=== PATIENT | female | born 1980 | race Caucasian/White ===

== ENCOUNTER 2019-02-18 03:21 | Emergency (ER) | payer OTHER ==
[~2019-02-18] VITALS: Ht 157.5 cm; Wt 52.6 kg
[2019-02-18 03:26] VITALS: Ht 157.5 cm; Wt 52.6 kg
--- NOTE | 2019-02-18 03:39 | ERD ---
ER Documentation Chief Complaint Chief Complaint DYSURIA, URINARY RETENTION HPI The patient is a 38-year-old female, presenting to the ER because of inability to void since 2 PM yesterday. 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 She was unable to urinate yesterday, went to [facility] ER, had a Scott catheter inserted.drain about 500 cc of urine. She was advised to have a Scott catheter however she demanded to have it removed at [facility]. She now came back to the ER because she was unable to urinate. She denies fever, chills, neck pain, chest pain, dyspnea, abdominal pain, vomiting. She has an appointment with the urologist 9 AM today. She smokes socially, denies drinking Medical history: Epilepsy Past surgical history: Hysterectomy ROS All systems reviewed and are negative except as per history of present illness. Medications Home Meds Active Scripts Baclofen* (Baclofen*) 10 Mg Tablet, 10 MG PO TID, #10 TAB Prov:CARLOS JONES MD 02/18/19 Levofloxacin* (Levaquin*) 750 Mg Tablet, 750 MG PO DAILY for 5 Days, TAB Prov:CARLOS JONES MD 02/18/19 Allergies Allergies: Uncoded Allergies: NSAID (Allergy, Unknown, 02/18/19) Physical Exam Vitals Vital Signs Date Temp Pulse Resp B/P (MAP) Pulse Ox O2 O2 Flow FiO2 Time Delivery Rate 02/18/19 98.8 108 19 120/78 96 03:26 (92) 02/18/19 98.8 108 19 120/78 96 03:26 (92) Physical Exam Const: No acute distress. Head: Atraumatic. Eyes: Normal Conjunctiva. ENT: Normal External Ears, Nose and Mouth. Neck: Full range of motion. No meningismus. Resp: Clear to auscultation bilaterally. Cardio: Regular rate and rhythm. Abd: Soft, distended urinary bladder, normal bowel sounds, non tender. Skin: No petechiae or rashes. Back: No midline or flank tenderness. Ext: No cyanosis, or edema. Neur: Awake and alert. No focal deficit Psych: Anxious Results 24 hrs Laboratory Tests Test 02/18/19 04:23 02/18/19 04:29 Bedside Urine pH (LAB) 5.5 Bedside Urine Protein (LAB) 2+ Bedside Urine Glucose (UA) 0.1% Bedside Urine Ketones (LAB) Trace Bedside Urine Blood Negative Bedside Urine Nitrite (LAB) Positive Bedside Urine Leukocyte Esterase (L 3+ POC Beta HCG, Qualitative NEGATIVE Current Medications Medications Dose Sig/Olena Start Time Status Last (Trade) Ordered Route PRN Stop Time Admin Dose Reason Admin Ketorolac 60 mg ONCE STAT 02/18/19 DC Tromethamine IM 04:17 (Toradol) 02/18/19 04:18 750 mg ONCE ONCE 02/18/19 DC 02/18/19 Levofloxacin PO 05:00 05:12 (Levaquin) 02/18/19 05:01 1 tab ONCE ONCE 02/18/19 DC 02/18/19 Acetaminophen PO 05:00 05:05 / 02/18/19 05:01 Hydrocodone Bitart ([place] (10/325)) Baclofen 10 mg ONCE ONCE 02/18/19 DC 02/18/19 (Lioresal) PO 05:00 05:12 02/18/19 05:01 Procedures/MDM MEDICAL MAKING DECISION: The patient is a 38-year-old female, presenting with acute urinary retention, acute cystitis. Urine culture is submitted, she was treated with [place] 10 mg p.o. for discomfort, Levaquin 750 mg p.o. for acute cystitis and baclofen 10 mg p.o. for her urinary bladder spasm. Scott catheter was inserted and drained out about 750 mL of urine, The RN has instructed her how to care for the leg bag The differential diagnoses considered include but are not limited to UTI, pyelonephritis, urethral stricture, renal colic, neurogenic bladder Departure Diagnosis: Primary Impression: Urinary retention Additional Impression: UTI (urinary tract infection) Condition: Good Comments She was discharged with Levaquin and baclofen I discussed the findings with the patient. I advised the patient to follow-up with her urologist at 9 AM today and return if any concern. Disclaimer: Inadvertent spelling and grammatical errors are likely due to EHR/dictation software use and do not reflect on the overall quality of patient care. Also, please note that the electronic time recorded on this note does not necessarily reflect the actual time of the patient encounter. CARLOS JONES MD Feb 18, 2019 03:39
[2019-02-18] MEDS ORDERED: KETOROLAC 60 MG INJ IM STA (04:17)
[2019-02-18] MEDS ORDERED: HYDROCODONE/APAP (10/325) TAB PO ONE (05:00)
[2019-02-18] MEDS ORDERED: LEVOFLOXACIN 750 MG TABLET PO ONE (05:00)
[2019-02-18] MEDS ORDERED: BACLOFEN 10 MG TAB PO ONE (05:00)
[2019-02-18] MEDS ORDERED: BACL10TA PO (05:01)
[2019-02-18] MEDS ORDERED: LEVO750T25 PO (05:01)
[2019-02-18 05:30] VITALS: BP 100/58; PULSE 80; RESP 23
[2019-02-18] MEDS ORDERED: HYDR-4011 PO (05:45)
== END 2019-02-18 05:35 | disposition home or self-care (01) ==
LOC: E/R 03:21
DX: N39.0 Urinary tract infection, site not specified (principal)
CPT/HCPCS: 81003; 81025; J1885; Z7502; Z7610; 99283

== ENCOUNTER 2019-02-19 20:29 | Emergency (ER) | payer OTHER ==
[~2019-02-19] VITALS: Ht 157.5 cm; Wt 52.4 kg
[~2019-02-19 20:29] MED LIST: BACL10TA PO; HYDR-4011 PO; LEVO750T25 PO
[2019-02-19 20:34] VITALS: Ht 157.5 cm; Wt 52.4 kg
[2019-02-19] MEDS ORDERED: morphine 4 MG/ML VIAL IM STA (21:29)
[2019-02-19] MEDS ORDERED: ONDANSETRON (ODT) 4 MG TAB ODT STA (21:29)
[2019-02-19] MEDS ORDERED: LIDOCAINE 2% 20 ML UROJET SYRINGE MM ONE (21:30)
--- NOTE | 2019-02-19 22:24 | ERD ---
ER Documentation Chief Complaint Chief Complaint STATES UNABLE TO URINATE SINCE 10 AM HPI This is a 38-year-old female who presents again for urinary retention. The patient was seen here recently had a Scott catheter placed and self discontinue the Scott catheter at home. She has been diagnosed with a urethral cyst versus diverticula. The patient has self discontinued multiple Scott catheters with recurrent urinary retention. She describes taking out the Scott and now unable to urinate for several hours. She describes suprapubic fullness and pain. No fevers or chills or flank pain. Symptoms are moderate. ROS All systems reviewed and are negative except as per history of present illness. Medications Home Meds Active Scripts Hydrocodone/Acetaminophen ([place] 5-325 Tablet) 1 Each Tablet, 1 TAB PO Q6H PRN for PAIN, #7 TAB Prov:CARLOS JONES MD 02/18/19 Baclofen* (Baclofen*) 10 Mg Tablet, 10 MG PO TID, #10 TAB Prov:CARLOS JONES MD 02/18/19 Levofloxacin* (Levaquin*) 750 Mg Tablet, 750 MG PO DAILY for 5 Days, TAB Prov:CARLOS JONES MD 02/18/19 Allergies Allergies: Coded Allergies: NSAIDS (Non-Steroidal Anti-Inflamma (Verified Allergy, Unknown, 02/18/19) PMhx/Soc History of Surgery: Yes (hystrectomy) Anesthesia Reaction: No Hx Neurological Disorder: Yes (seizures) Hx Respiratory Disorders: No Hx Cardiac Disorders: No Hx Psychiatric Problems: No Hx Miscellaneous Medical Probl: Yes (cancer) Hx Alcohol Use: Yes Hx Substance Use: No Hx Tobacco Use: No FmHx Family History: No diabetes Physical Exam Vitals Vital Signs Date Temp Pulse Resp B/P (MAP) Pulse Ox O2 O2 Flow FiO2 Time Delivery Rate 02/19/19 99.6 93 20 130/80 98 20:34 (97) Physical Exam General: Well developed, well nourished, no acute distress Head: Normocephalic, atraumatic. Eyes: EOM intact ENT: Moist mucous membranes Neck: Full ROM Respiratory: No respiratory distress Cardiovascular: Well perfused distally Abdominal: Nondistended, suprapubic fullness : Deferred MSK: No edema, no unilateral swelling, 5/5 strength Neurologic: Alert and oriented, moving all extremities, normal speech, steady gait Skin: No rash Psych: Normal mood Results 24 hrs Current Medications Medications Dose Sig/Olena Start Time Status Last (Trade) Ordered Route PRN Stop Time Admin Dose Reason Admin Morphine 4 mg ONCE STAT 02/19/19 DC 02/19/19 Sulfate IM 21:29 21:59 (morphine) 02/19/19 21:32 Lidocaine 20 ml ONCE ONCE 02/19/19 DC 02/19/19 (Lidocaine MM 21:30 22:06 2% Urojet) 02/19/19 21:32 Ondansetron 4 mg ONCE STAT 02/19/19 DC 02/19/19 HCl (Zofran ODT 21:29 21:59 Odt) 02/19/19 21:32 Procedures/MDM MEDICAL DECISION MAKING: Scott catheter placed here in the emergency room. The patient was advised that she needs to keep the Scott catheter in until she can see her urologist. She has a mechanical obstruction that is unlikely to resolve with this time. Patient is currently taking an antibiotic. A urine culture was canceled during recent hospital station so therefore repeat urine culture will be sent here today. The patient otherwise has no signs or symptoms concerning for obstructive uropathy. Letter testing is not indicated. CONSULTATION: [None] DISPOSITION PLAN: The patient does not have an identifiable emergent medical condition that warrants inpatient hospitalization at this time. The patient is deemed safe for discharge with outpatient follow-up. We discussed follow up with the patient's primary care doctor within 24 to 48 hours as needed. We also discussed return to the emergency room for worsening symptoms or worsening condition. Outpatient referral: Urology Discharge Medications: [None required] Departure Diagnosis: Primary Impression: Acute urinary retention Condition: Stable Patient Instructions: Urinary Retention, Female Referrals: CODY CHRISTIANSON MD [facility] YOU HAVE RECEIVED A MEDICAL SCREENING EXAM AND THE RESULTS INDICATE THAT YOU DO NOT HAVE A CONDITION THAT REQUIRES URGENT TREATMENT IN THE EMERGENCY DEPARTMENT. FURTHER EVALUATION AND TREATMENT OF YOUR CONDITION CAN WAIT UNTIL YOU ARE SEEN IN YOUR DOCTORS OFFICE WITHIN THE NEXT 1-2 DAYS. IT IS YOUR RESPONSIBILITY TO MAKE AN APPOINTMENT FOR FOLOW-UP CARE. IF YOU HAVE A PRIMARY DOCTOR --you should call your primary doctor and schedule an appointment IF YOU DO NOT HAVE A PRIMARY DOCTOR YOU CAN CALL OUR PHYSICIAN REFERRAL HOTLINE AT IF YOU CAN NOT AFFORD TO SEE A PHYSICIAN YOU CAN CHOSE FROM THE FOLLOWING [facility] [address] [place] [facility] [address] [facility] [place] [address] [facility] [address] [facility] [address] [facility]. [facility] [address] [facility]. [facility] YOU HAVE RECEIVED A MEDICAL SCREENING EXAM AND THE RESULTS INDICATE THAT YOU DO NOT HAVE A CONDITION THAT REQUIRES URGENT TREATMENT IN THE EMERGENCY DEPARTMENT. FURTHER EVALUATION AND TREATMENT OF YOUR CONDITION CAN WAIT UNTIL YOU ARE SEEN IN YOUR DOCTORS OFFICE WITHIN THE NEXT 1-2 DAYS. IT IS YOUR RESPONSIBILITY TO MAKE AN APPOINTMENT FOR FOLOW-UP CARE. IF YOU HAVE A PRIMARY DOCTOR --you should call your primary doctor and schedule and appointment IF YOU DO NOT HAVE A PRIMARY DOCTOR YOU CAN CALL OUR PHYSICIAN REFERRAL HOTLINE AT . IF YOU CAN NOT AFFORD TO SEE A PHYSICIAN YOU CAN CHOSE FROM THE FOLLOWING [facility] INSTITUTIONS: [facility] [address] [place] [address] [facility] [address] [place] [address] [facility] [address] [place] [address] Additional Instructions: Call your primary care doctor TOMORROW for an appointment during the next 1 WEEK.Tell the secretary specialist that you were referred from this facility.See the doctor sooner or return here if your condition worsens before your appointment time. ED BANDA MD Feb 19, 2019 22:24
[2019-02-19 23:00] VITALS: BP 135/82; PULSE 77; RESP 20
[2019-02-21] MEDS ORDERED: ONDA4TAB13 PO (17:47)
[2019-02-21] MEDS ORDERED: PHEN-717 PO (17:48)
[2019-02-21] MEDS ORDERED: TAMS-14 PO (17:48)
[2019-02-21] MEDS ORDERED: CARB100T2 PO (17:49)
== END 2019-02-20 00:56 | disposition home or self-care (01) ==
LOC: E/R 20:29
DX: R33.9 Retention of urine, unspecified (principal)
CPT/HCPCS: 51702; 87086; 96372; J2270; Z7502; Z7610

== ENCOUNTER 2019-02-21 15:01 | Inpatient (IN) | payer OTHER ==
[~2019-02-21] VITALS: Ht 157.5 cm; Wt 52.3 kg
[2019-02-21] MEDS ORDERED: SOD CHLORIDE 0.9% 1,000 ML IV STA (16:30)
[2019-02-21] MEDS ORDERED: ACETAMINOPHEN 325 MG TAB PO PRN (17:00)
[2019-02-21] MEDS ORDERED: ONDANSETRON 4 MG INJ IV PRN (17:00)
[2019-02-21] MEDS ORDERED: HYDROCODONE/APAP (5/325) TAB PO PRN (17:00)
[2019-02-21] MEDS ORDERED: NACL 0.9% 3 ML SYG IV SCH (17:00)
[2019-02-21] MEDS ORDERED: DIPHENHYDRAMINE 50 MG INJ IV PRN (17:30)
[2019-02-21] MEDS: morphine 2 MG INJ IV PRN ×2 (17:32→21:25)
--- NOTE | 2019-02-21 17:40 | HP ---
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 Patient has been dealing with intermittent dysuria as well as worsening urinary retention for many months and now there is a questionable urinary diverticulum when patient was at the urologist office where he performed cystoscopy today. Currently patient complains of urinary and urethral site pain and has a Scott catheter otherwise is at baseline. Patient denies chest pain, shortness of breath, headache. Patient does state she has some nausea and some dizziness. Objective Physical exam General: Patient is laying in bed and answers questions appropriately Mentation: Patient is alert and oriented 4, Head: Normocephalic atraumatic Eyes: EOMI, pupils reactive to light Neck: Supple, nontender, midline Respiratory: Clear to auscultation bilaterally Cardiovascular: regular rate, no obvious murmurs Gastrointestinal: Suprapubic area tender to palpation, bowel sounds heard. Neurological: Moves all extremities spontaneously Skin: No new skin lesions Assessment and plan All current labs are not in the computer at this time, following assessment plan will change based on results Acute on chronic dysuria with urinary retention -Patient's urologist on board, Dr. Ramirez -Per urology recommendations, will order MRI with and without contrast, patient stated she had a very mild reaction with a CT with iodine contrast in the past that cause very mild redness however she has not had any reaction to MRI with gadolinium, however patient would feel more comfortable with a dose of Benadryl before the MRI. -Nursing staff given strict instructions on how to remove in 1 to remove Scott c atheter prior to MRI and went to give Benadryl. Urinary tract infection -Likely secondary to patient's multiple urinary issues -Patient was on oral Levaquin, will change to IV cefepime for now -Urology recommendations appreciated -mild IV hydration Anemia -Very mild, monitor closely, follow-up outpatient Disposition -Pending MRI, possible intervention per urology if MRI results are revealing for pathology Result Diagram: 02/21/19 1654 02/21/19 1654 Results 24hrs Laboratory Tests Test 02/21/19 16:54 White Blood Count 7.4 Red Blood Count 3.72 L Hemoglobin 11.9 L Hematocrit 35.3 L Mean Corpuscular Volume 94.9 Mean Corpuscular Hemoglobin 32.0 Mean Corpuscular Hemoglobin Concent 33.7 Red Cell Distribution Width 11.7 Platelet Count 170 Mean Platelet Volume 10.5 H Immature Granulocytes % 0.400 Neutrophils % 75.2 Lymphocytes % 17.1 Monocytes % 6.5 Eosinophils % 0.4 Basophils % 0.4 Nucleated Red Blood Cells % 0.0 Immature Granulocytes # 0.030 Neutrophils # 5.6 Lymphocytes # 1.3 Monocytes # 0.5 Eosinophils # 0.0 Basophils # 0.0 Nucleated Red Blood Cells # 0.0 Prothrombin Time 12.7 Prothrombin Time Ratio 1.0 INR International Normalized Ratio 0.94 Activated Partial Thromboplast Time 31.0 Urine Color RODRIGO Urine Clarity CLOUDY A Urine pH 5.0 Urine Specific [place] 1.025 Urine Ketones NEGATIVE Urine Nitrite POSITIVE A Urine Bilirubin NEGATIVE Urine Urobilinogen 2+ H Urine Leukocyte Esterase NEGATIVE Urine Microscopic RBC 12 H Urine Microscopic WBC 7 H Urine Bacteria FEW A Urine Mucus FEW A Urine Hemoglobin NEGATIVE Urine Glucose NEGATIVE Urine Total Protein NEGATIVE Sodium Level 139 Potassium Level 3.5 Chloride Level 104 Carbon Dioxide Level 25 Anion Gap 10 Blood Urea Nitrogen Pending Creatinine Pending Est Glomerular Filtrat Rate mL/min Pending Glucose Level Pending Calcium Level Pending HPI/ROS Admit Date/Time Admit Date/Time PMH/Family/Social Past Medical History Medications Current Medications IV Flush (NS 3 ml) 3 ml PER PROTOCOL IV ; Start 02/21/19 at 17:00 Ondansetron HCl (Zofran Inj) 4 mg Q6H PRN IV NAUSEA/VOMITING; Start 02/21/19 at 17:00 Acetaminophen (Tylenol Tab) 650 mg Q6H PRN PO .PAIN 1-3 OR TEMP; Start 02/21/19 at 17:00 Acetaminophen/ Hydrocodone Bitart ([place] (5/325)) 1 tab Q6H PRN PO .PAIN 4-6; Start 02/21/19 at 17:00 Morphine Sulfate (morphine) 2 mg Q4H PRN IV .PAIN 7-10 Last administered on 02/21/19at 17:32; Admin Dose 2 MG; Start 02/21/19 at 17:00 Heparin Sodium (Porcine) (Heparin (5000 Units/1ml)) 5,000 unit Q8 SC ; Start 02/21/19 at 22:00 Diphenhydramine HCl (Benadryl) 25 mg ONCE PRN IV MRI; Start 02/21/19 at 17:30; Stop 02/22/19 at 23:00 Baclofen (Lioresal) 10 mg TID PO ; Start 02/21/19 at 21:00 Phenazopyridine HCl (Pyridium) 100 mg TID PO ; Start 02/21/19 at 21:00 Carbamazepine (Tegretol) 200 mg TID PO ; Start 02/21/19 at 21:00 Cefepime HCl 50 ml @ 100 mls/hr Q12 IVPB ; Start 02/21/19 at 21:00 Tamsulosin HCl (Flomax) 0.4 mg HS PO ; Start 02/21/19 at 21:00 Coded Allergies: NSAIDS (Non-Steroidal Anti-Inflamma (Verified Allergy, Unknown, 02/21/19) Social History Smoking Status: Never smoker Exam/Review of Systems Vital Signs Vitals Vital Signs Date Temp Pulse Resp B/P (MAP) Pulse Ox O2 O2 Flow FiO2 Time Delivery Rate 02/21/19 99.2 117 20 104/63 97 15:13 (77) CALEB ADAMS Feb 21, 2019 17:40
[2019-02-21] MEDS ORDERED: ONDA4TAB13 PO (17:47)
[2019-02-21] MEDS ORDERED: TAMS-14 PO (17:48)
[2019-02-21] MEDS ORDERED: PHEN-717 PO (17:48)
[2019-02-21] MEDS ORDERED: CARB100T2 PO (17:49)
[2019-02-21] MEDS ORDERED: METOCLOPRAMIDE 10 MG INJ IV PRN (18:00)
[2019-02-21] MEDS: PROCHLORPERAZINE 10 MG INJ IV PRN (18:36)
--- NOTE | 2019-02-21 19:12 | ERD ---
ER Documentation Chief Complaint Chief Complaint sent by urologist for admission, urethral obstruction & pelvic pain HPI 38-year-old woman referred here by her urologist Dr. Ramirez for admission, work- up, and MR imaging. Patient was at his office today and a new Scott catheter was placed due to chronic recurrent dysuria that patient states has been an ongoing issue x1 year. She states she has urethral cysts, cystoscopy was also done this morning's office and was abnormal. Patient has had hematuria today and feels dehydrated, she has had no fevers or chills, no chest pain or shortness of breath. She has been using levofloxacin daily x4 days. ROS All systems reviewed and are negative except as per history of present illness. Medications Home Meds Active Scripts Hydrocodone/Acetaminophen ([place] 5-325 Tablet) 1 Each Tablet, 1 TAB PO Q6H PRN for PAIN, #7 TAB Prov:CARLOS JONES MD 02/18/19 Baclofen* (Baclofen*) 10 Mg Tablet, 10 MG PO TID, #10 TAB Prov:CARLOS JONES MD 02/18/19 Levofloxacin* (Levaquin*) 750 Mg Tablet, 750 MG PO DAILY for 5 Days, TAB Prov:CARLOS JONES MD 02/18/19 Reported Medications Carbamazepine* (Carbamazepine*) 100 Mg Tab.chew, 100 MG PO TID, #90 TAB.CHEW 02/21/19 Phenazopyridine Hcl* (Phenazopyridine Hcl*) 200 Mg Tablet, 200 MG PO DAILY, TAB 02/21/19 Tamsulosin Hcl* (Flomax*) 0.4 Mg Cap.er.24h, 0.8 MG PO HS, CAP 02/21/19 Ondansetron Hcl* (Zofran*) 4 Mg Tab, 4 MG PO NEEDED PRN for NAUSEA AND OR VOMITING, TAB 02/21/19 Allergies Allergies: Coded Allergies: NSAIDS (Non-Steroidal Anti-Inflamma (Verified Allergy, Unknown, 02/21/19) PMhx/Soc Seizures History of Surgery: Yes (hystrectomy) Anesthesia Reaction: No Hx Neurological Disorder: Yes (seizures) Hx Respiratory Disorders: No Hx Cardiac Disorders: No Hx Psychiatric Problems: No Hx Miscellaneous Medical Probl: Yes (cancer) Hx Alcohol Use: Yes Hx Substance Use: No Hx Tobacco Use: No Smoking Status: Never smoker FmHx Family History: No diabetes Physical Exam Vitals Vital Signs Date Temp Pulse Resp B/P (MAP) Pulse Ox O2 O2 Flow FiO2 Time Delivery Rate 02/21/19 94 16 96/67 (77) 97 Room Air 18:33 02/21/19 99.2 117 20 104/63 97 15:13 (77) Physical Exam Const: No acute distress, afebrile, appears dehydrated Resp: Clear to auscultation bilaterally Cardio: Regular rate and rhythm, no murmurs Abd: Soft, non tender, non distended. Normal bowel sounds Skin: No petechiae or rashes, no hematomas or ecchymosis Back: No midline or flank tenderness Neur: Awake and alert x3, no focal deficits or facial asymmetry, pupils equal round reactive to light Psych: Normal Mood and Affect Result Diagram: 02/21/19 1654 02/21/19 1654 Results 24 hrs Laboratory Tests Test 02/21/19 16:54 White Blood Count 7.4 10^3/ul Red Blood Count 3.72 10^6/ul Hemoglobin 11.9 g/dl Hematocrit 35.3 % Mean Corpuscular Volume 94.9 fl Mean Corpuscular Hemoglobin 32.0 pg Mean Corpuscular Hemoglobin Concent 33.7 g/dl Red Cell Distribution Width 11.7 % Platelet Count 170 10^3/UL Mean Platelet Volume 10.5 fl Immature Granulocytes % 0.400 % Neutrophils % 75.2 % Lymphocytes % 17.1 % Monocytes % 6.5 % Eosinophils % 0.4 % Basophils % 0.4 % Nucleated Red Blood Cells % 0.0 /100WBC Immature Granulocytes # 0.030 10^3/ul Neutrophils # 5.6 10^3/ul Lymphocytes # 1.3 10^3/ul Monocytes # 0.5 10^3/ul Eosinophils # 0.0 10^3/ul Basophils # 0.0 10^3/ul Nucleated Red Blood Cells # 0.0 10^3/ul Prothrombin Time 12.7 Sec Prothrombin Time Ratio 1.0 INR International Normalized Ratio 0.94 Activated Partial Thromboplast Time 31.0 Sec Urine Color RODRIGO Urine Clarity CLOUDY Urine pH 5.0 Urine Specific [place] 1.025 Urine Ketones NEGATIVE mg/dL Urine Nitrite POSITIVE mg/dL Urine Bilirubin NEGATIVE mg/dL Urine Urobilinogen 2+ mg/dL Urine Leukocyte Esterase NEGATIVE [place]/ul Urine Microscopic RBC 12 /HPF Urine Microscopic WBC 7 /HPF Urine Bacteria FEW /HPF Urine Mucus FEW /HPF Urine Hemoglobin NEGATIVE mg/dL Urine Glucose NEGATIVE mg/dL Urine Total Protein NEGATIVE mg/dl Urine Test NEGATIVE Sodium Level 139 mmol/L Potassium Level 3.5 mmol/L Chloride Level 104 mmol/L Carbon Dioxide Level 25 mmol/L Anion Gap 10 Blood Urea Nitrogen 16 mg/dl Creatinine 0.92 mg/dl Est Glomerular Filtrat Rate mL/min > 60 mL/min Glucose Level 109 mg/dl Calcium Level 9.7 mg/dl Current Medications Medications Dose Sig/Olena Start Time Status Last (Trade) Ordered Route PRN Stop Time Admin Dose Reason Admin Sodium 1,000 ml @ Q1H STAT 02/21/19 DC 02/21/19 Chloride 1,000 mls/hr IV 16:30 17:05 02/21/19 17:29 IV Flush 3 ml PER 02/21/19 (NS 3 ml) PROTOCOL IV 17:00 Ondansetron 4 mg Q6H PRN 02/21/19 DC HCl (Zofran IV 17:00 Inj) NAUSEA/VOMITI 02/21/19 17:53 NG 650 mg Q6H PRN 02/21/19 Acetaminophen PO .PAIN 1-3 17:00 (Tylenol OR TEMP Tab) 1 tab Q6H PRN 02/21/19 Acetaminophen PO .PAIN 4-6 17:00 / Hydrocodone Bitart ([place] (5/325)) Morphine 2 mg Q4H PRN 02/21/19 02/21/19 Sulfate IV .PAIN 17:00 17:32 (morphine) 7-10 Heparin 5,000 unit Q8 SC 02/21/19 Sodium 22:00 (Porcine) (Heparin (5000 Units/1ml)) 25 mg ONCE PRN 02/21/19 Diphenhydrami IV MRI 17:30 ne HCl 02/22/19 23:00 (Benadryl) Baclofen 10 mg TID PO 02/21/19 DC (Lioresal) 21:00 02/21/19 21:00 100 mg TID PO 02/21/19 Phenazopyridi 21:00 ne HCl (Pyridium) 200 mg TID PO 02/21/19 Carbamazepine 21:00 (Tegretol) Cefepime HCl 50 ml @ Q12 IVPB 02/21/19 100 mls/hr 21:00 Tamsulosin 0.4 mg HS PO 02/21/19 HCl 21:00 (Flomax) Baclofen 10 mg TID PO 02/21/19 (Lioresal) 21:00 Sodium 1,000 ml @ Q20H IV 02/21/19 Chloride 50 mls/hr 18:00 5 mg Q6H PRN 02/21/19 DC 02/21/19 Metoclopramid IV 18:00 18:13 e HCl nausea/vomiti 02/21/19 18:28 (Reglan) ng 5 mg Q6H PRN 02/21/19 02/21/19 Prochlorperaz IV NAUSEA 18:30 18:36 ine AND/OR (Compazine VOMITING Inj) Procedures/MDM IV line was established patient was placed on pens and pencils dipper rhythm strip revealed a sinus rhythm at about 80 bpm with upright P and T waves. Patient was afebrile, urine cultures were ordered results are pending I will follow-up. CBC and electrolytes were unremarkable, coagulation profile within normal limits. Urinalysis was positive for infection although I will defer to urologist to antibiotic treatment as urine cultures are still pending Patient [facility]. Departure Diagnosis: Primary Impression: Dysuria Additional Impressions: Urethral cyst Acute dehydration Condition: CALEB Trinh MD Feb 21, 2019 19:12
[2019-02-21 19:38] VITALS: BP 98/54; PULSE 83; RESP 18
[2019-02-21] MEDS: SOD CHLORIDE 0.9% 1,000 ML IV SCH (20:00)
[2019-02-21] MEDS ORDERED: CARBAMAZEPINE 200 MG TAB PO SCH (21:00)
[2019-02-21] MEDS ORDERED: BACLOFEN 10 MG TAB PO SCH (21:00)
[2019-02-21] MEDS: CEFEPIME 1GM/50 ML (PMX) 50 ML IVPB SCH (21:25)
[2019-02-21] MEDS: TAMSULOSIN (SR) 0.4 MG CAP PO SCH (21:26)
[2019-02-21] MEDS: HEPARIN 5,000 UNIT/1 ML VIAL SC SCH (21:36)
[2019-02-21] MEDS: BACLOFEN 10 MG TAB PO SCH (22:40)
[2019-02-21] MEDS: CARBAMAZEPINE 200 MG TAB PO SCH (22:41)
[2019-02-21] MEDS: PHENAZOPYRIDINE 100 MG TAB PO SCH (22:41)
[2019-02-21 23:00] VITALS: Ht 157.5 cm; Wt 52.3 kg
[2019-02-21] MEDS: HYDROmorphONE 0.5 MG/0.5 ML SYG IV PRN (23:19)
[2019-02-22] MEDS: PROCHLORPERAZINE 10 MG INJ IV PRN ×3 (00:44→17:57)
[2019-02-22 01:53] VITALS: BP 104/68; PULSE 77; RESP 16
[2019-02-22] MEDS: HEPARIN 5,000 UNIT/1 ML VIAL SC SCH ×3 (06:00→21:23)
--- NOTE | 2019-02-22 07:58 | CONS ---
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 If pt cannot tolerate IV contrast, then OK to get MRI without IV contrast. The MRI should be done with about 200 cc in the bladder and without the chopra catheter. Further recommendations to follow Exam/Review of Systems Exam Vitals Vital Signs Date Temp Pulse Resp B/P (MAP) Pulse Ox O2 O2 Flow FiO2 Time Delivery Rate 02/22/19 97.6 77 16 104/68 97 01:53 (80) 02/21/19 Room Air 18:33 Intake and Output 02/21/19 02/21/19 02/22/19 1515:00 23:00 07:00 IntakeIntake Total 50 ml 450 ml OutputOutput Total 700 ml BalanceBalance 50 ml -250 ml Results Result Diagram: 02/22/19 0448 02/22/19 0448 Results 24hrs Laboratory Tests Test 02/21/19 16:54 02/22/19 04:48 White Blood Count 7.4 6.2 Red Blood Count 3.72 L 3.44 L Hemoglobin 11.9 L 10.9 L Hematocrit 35.3 L 33.2 L Mean Corpuscular Volume 94.9 96.5 Mean Corpuscular Hemoglobin 32.0 31.7 Mean Corpuscular Hemoglobin Concent 33.7 32.8 Red Cell Distribution Width 11.7 11.9 Platelet Count 170 134 #L Mean Platelet Volume 10.5 H 11.2 H Immature Granulocytes % 0.400 0.300 Neutrophils % 75.2 54.6 Lymphocytes % 17.1 34.1 Monocytes % 6.5 7.5 Eosinophils % 0.4 3.0 Basophils % 0.4 0.5 Nucleated Red Blood Cells % 0.0 0.0 Immature Granulocytes # 0.030 0.020 Neutrophils # 5.6 3.4 Lymphocytes # 1.3 2.1 Monocytes # 0.5 0.5 Eosinophils # 0.0 0.2 Basophils # 0.0 0.0 Nucleated Red Blood Cells # 0.0 0.0 Prothrombin Time 12.7 Prothrombin Time Ratio 1.0 INR International Normalized Ratio 0.94 Activated Partial Thromboplast Time 31.0 Urine Color RODRIGO Urine Clarity CLOUDY A Urine pH 5.0 Urine Specific [place] 1.025 Urine Ketones NEGATIVE Urine Nitrite POSITIVE A Urine Bilirubin NEGATIVE Urine Urobilinogen 2+ H Urine Leukocyte Esterase NEGATIVE Urine Microscopic RBC 12 H Urine Microscopic WBC 7 H Urine Bacteria FEW A Urine Mucus FEW A Urine Hemoglobin NEGATIVE Urine Glucose NEGATIVE Urine Total Protein NEGATIVE Urine Test NEGATIVE Sodium Level 139 140 Potassium Level 3.5 4.2 Chloride Level 104 109 Carbon Dioxide Level 25 26 Anion Gap 10 5 Blood Urea Nitrogen 16 12 Creatinine 0.92 0.68 Est Glomerular Filtrat Rate mL/min > 60 > 60 Glucose Level 109 100 Calcium Level 9.7 9.0 Magnesium Level 2.0 Total Bilirubin 0.8 Direct Bilirubin 0.00 Indirect Bilirubin 0.8 Aspartate Amino Transf (AST/SGOT) 14 L Alanine Aminotransferase (ALT/SGPT) 20 Alkaline Phosphatase 39 L Total Protein 5.9 L Albumin 3.4 Globulin 2.50 Albumin/Globulin Ratio 1.36 Medications Medication Current Medications IV Flush (NS 3 ml) 3 ml PER PROTOCOL IV ; Start 02/21/19 at 17:00 Acetaminophen (Tylenol Tab) 650 mg Q6H PRN PO .PAIN 1-3 OR TEMP; Start 02/21/19 at 17:00 Acetaminophen/ Hydrocodone Bitart ([place] (5/325)) 1 tab Q6H PRN PO .PAIN 4-6; Start 02/21/19 at 17:00 Heparin Sodium (Porcine) (Heparin (5000 Units/1ml)) 5,000 unit Q8 SC ; Start 02/21/19 at 22:00 Diphenhydramine HCl (Benadryl) 25 mg ONCE PRN IV MRI; Start 02/21/19 at 17:30; Stop 02/22/19 at 23:00 Phenazopyridine HCl (Pyridium) 100 mg TID PO Last administered on 02/21/19at 22:41; Admin Dose 100 MG; Start 02/21/19 at 21:00 Cefepime HCl 50 ml @ 100 mls/hr Q12 IVPB Last administered on 02/21/19 21:25; Admin Dose 100 MLS/HR; Start 02/21/19 at 21:00 Tamsulosin HCl (Flomax) 0.4 mg HS PO Last administered on 02/21/19 21:26; Admin Dose 0.4 MG; Start 02/21/19 at 21:00 Baclofen (Lioresal) 10 mg TID PO Last administered on 02/21/19 22:40; Admin Dose 10 MG; Start 02/21/19 at 21:00 Sodium Chloride 1,000 ml @ 50 mls/hr Q20H IV Last administered on 02/21/19 20:00; Admin Dose 50 MLS/HR; Start 02/21/19 at 18:00 Prochlorperazine (Compazine Inj) 5 mg Q6H PRN IV NAUSEA AND/OR VOMITING Last administered on 02/22/19 00:44; Admin Dose 5 MG; Start 02/21/19 at 18:30 Carbamazepine (Tegretol) 100 mg TID PO Last administered on 02/21/19at 22:41; Admin Dose 100 MG; Start 02/21/19 at 21:00 Hydromorphone HCl (Dilaudid) 0.5 mg Q4H PRN IV SEVERE PAIN LEVEL 7-10 Last administered on 02/21/19 23:19; Admin Dose 0.5 MG; Start 02/21/19 at 23:30 LASHAWN WHITTINGTON Feb 22, 2019 07:58
[2019-02-22 08:14] VITALS: BP 99/55; PULSE 102; RESP 20
[2019-02-22] MEDS: CEFEPIME 1GM/50 ML (PMX) 50 ML IVPB SCH ×2 (09:05→21:11)
[2019-02-22] MEDS: CARBAMAZEPINE 200 MG TAB PO SCH ×3 (09:05→21:11)
[2019-02-22] MEDS: PHENAZOPYRIDINE 100 MG TAB PO SCH ×3 (09:05→21:11)
[2019-02-22] MEDS: BACLOFEN 10 MG TAB PO SCH ×3 (09:05→21:11)
[2019-02-22] MEDS: HYDROmorphONE 0.5 MG/0.5 ML SYG IV PRN ×3 (09:57→21:17)
--- NOTE | 2019-02-22 12:25 | PN ---
Date/Time of Note Date/Time of Note DATE: 02/22/19 TIME: 12:24 Objective Vitals Vital Signs Date Temp Pulse Resp B/P (MAP) Pulse Ox O2 O2 Flow FiO2 Time Delivery Rate 02/22/19 98.3 102 20 99/55 (70) 96 08:14 02/21/19 Room Air 18:33 Intake and Output 02/21/19 02/21/19 02/22/19 1515:00 23:00 07:00 IntakeIntake Total 50 ml 450 ml OutputOutput Total 700 ml BalanceBalance 50 ml -250 ml Results Result Diagram: 02/22/198 02/22/19447 Medications Medications Current Medications IV Flush (NS 3 ml) 3 ml PER PROTOCOL IV ; Start 02/21/19 at 17:00 Acetaminophen (Tylenol Tab) 650 mg Q6H PRN PO .PAIN 1-3 OR TEMP; Start 02/21/19 at 17:00 Acetaminophen/ Hydrocodone Bitart ([place] (5/325)) 1 tab Q6H PRN PO .PAIN 4-6; Start 02/21/19 at 17:00 Heparin Sodium (Porcine) (Heparin (5000 Units/1ml)) 5,000 unit Q8 SC ; Start 02/21/19 at 22:00 Diphenhydramine HCl (Benadryl) 25 mg ONCE PRN IV MRI; Start 02/21/19 at 17:30; Stop 02/22/19 at 23:00 Phenazopyridine HCl (Pyridium) 100 mg TID PO Last administered on 02/22/19at 09:05; Admin Dose 100 MG; Start 02/21/19 at 21:00 Cefepime HCl 50 ml @ 100 mls/hr Q12 IVPB Last administered on 02/22/19at 09:05; Admin Dose 100 MLS/HR; Start 02/21/19 at 21:00 Tamsulosin HCl (Flomax) 0.4 mg HS PO Last administered on 02/21/19at 21:26; Admin Dose 0.4 MG; Start 02/21/19 at 21:00 Baclofen (Lioresal) 10 mg TID PO Last administered on 02/22/19at 09:05; Admin Dose 10 MG; Start 02/21/19 at 21:00 Sodium Chloride 1,000 ml @ 50 mls/hr Q20H IV Last administered on 02/21/19at 20:00; Admin Dose 50 MLS/HR; Start 02/21/19 at 18:00 Prochlorperazine (Compazine Inj) 5 mg Q6H PRN IV NAUSEA AND/OR VOMITING Last administered on 02/22/19at 10:59; Admin Dose 5 MG; Start 02/21/19 at 18:30 Carbamazepine (Tegretol) 100 mg TID PO Last administered on 02/22/19at 09:05; Admin Dose 100 MG; Start 02/21/19 at 21:00 Hydromorphone HCl (Dilaudid) 0.5 mg Q4H PRN IV SEVERE PAIN LEVEL 7-10 Last administered on 02/22/19at 09:57; Admin Dose 0.5 MG; Start 02/21/19 at 23:30 Pantoprazole (Protonix Tab) 40 mg DAILY@06 PO ; Start 02/22/19 at 09:30 Miscellaneous Information Patients own medicat... BID@10,16 XX ; Start 02/22/19 at 16:00 VTE Prophylaxis Risk score (from Ns)>0 risk: 2 SCD applied (from [facility]): Yes Lines/Catheters IV Catheter Type: Scott in Place: No Assessment/Plan Hospital Course Patient states that she still has some mild dizziness although that has improved since yesterday as well as some occasional blurry vision but not significant. Patient's nausea has also improved since yesterday. Objective Physical exam General: Patient is laying in bed and answers questions appropriately Mentation: Patient is alert and oriented 4, Head: Normocephalic atraumatic Eyes: EOMI, pupils reactive to light Neck: Supple, nontender, midline Respiratory: Clear to auscultation bilaterally Cardiovascular: regular rate, no obvious murmurs Gastrointestinal: Suprapubic area mildly tender to palpation, bowel sounds heard. Neurological: Moves all extremities spontaneously Skin: No new skin lesions Assessment and plan Acute on chronic dysuria with urinary retention -Patient's urologist on board, Dr. Ramirez -Per urology recommendations, will order MRI with and without contrast, patient stated she had a very mild reaction with a CT with iodine contrast in the past that cause very mild redness however she has not had any reaction to MRI with gadolinium, however patient would feel more comfortable with a dose of Benadryl before the MRI. -Nursing staff given strict instructions on how to remove Scott catheter prior to MRI and went to give Benadryl. Urinary tract infection -Likely secondary to patient's multiple urinary issues -Patient was on oral Levaquin, will change to IV cefepime for now -Urology recommendations appreciated -mild IV hydration Dizziness -Improving -Likely sequelae to everything is going on and UTI Blurry vision -Very mild, likely sequelae to above factors including UTI and dizziness -MRI head pending Nausea -As needed medications, improving Anemia -Very mild, monitor closely, follow-up outpatient Disposition -Pending MRI, possible intervention per urology if MRI results are revealing for pathology CALEB ADAMS Feb 22, 2019 12:25
[2019-02-22 13:42] VITALS: BP 101/59; PULSE 70; RESP 20
[2019-02-22] MEDS: SOD CHLORIDE 0.9% 1,000 ML IV SCH ×2 (14:00→17:28)
[2019-02-22] MEDS: PANTOPRAZOLE (EC) 40 MG TAB PO SCH (14:10)
[2019-02-22 19:18] VITALS: BP 99/58; PULSE 80; RESP 18
[2019-02-22] MEDS: TAMSULOSIN (SR) 0.4 MG CAP PO SCH (21:11)
[2019-02-23] VITALS (12 sets, daily range): BP systolic 117–147; BP diastolic 66–96; PULSE 76–110; RESP 14–20
[2019-02-23] MEDS: PROCHLORPERAZINE 10 MG INJ IV PRN (02:27)
[2019-02-23] MEDS: HYDROmorphONE 0.5 MG/0.5 ML SYG IV PRN ×3 (02:27→20:08)
[2019-02-23] MEDS ORDERED: LORAZEPAM 2 MG INJ IV ONE ×2 (03:30→21:00)
[2019-02-23] MEDS: PANTOPRAZOLE (EC) 40 MG TAB PO SCH ×2 (06:00→06:43)
[2019-02-23] MEDS: OXYCODONE/ACETAMINOPHEN (5/325) TAB PO PRN (09:57)
[2019-02-23] MEDS: CARBAMAZEPINE 200 MG TAB PO SCH ×3 (09:57→20:31)
[2019-02-23] MEDS: PHENAZOPYRIDINE 100 MG TAB PO SCH ×3 (09:57→20:31)
[2019-02-23] MEDS: CEFEPIME 1GM/50 ML (PMX) 50 ML IVPB SCH ×2 (09:57→20:30)
--- NOTE | 2019-02-23 12:38 | PREAC ---
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 not on B-Karina Active Scripts Hydrocodone/Acetaminophen ([place] 5-325 Tablet) 1 Each Tablet, 1 TAB PO Q6H PRN for PAIN, #7 TAB Prov:CARLOS JONES MD 02/18/19 Baclofen* (Baclofen*) 10 Mg Tablet, 10 MG PO TID, #10 TAB Prov:CARLOS JONES MD 02/18/19 Levofloxacin* (Levaquin*) 750 Mg Tablet, 750 MG PO DAILY for 5 Days, TAB Prov:CARLOS JONES MD 02/18/19 Reported Medications Carbamazepine* (Carbamazepine*) 100 Mg Tab.chew, 100 MG PO TID, #90 TAB.CHEW 02/21/19 Phenazopyridine Hcl* (Phenazopyridine Hcl*) 200 Mg Tablet, 200 MG PO DAILY, TAB 02/21/19 Tamsulosin Hcl* (Flomax*) 0.4 Mg Cap.er.24h, 0.8 MG PO HS, CAP 02/21/19 Ondansetron Hcl* (Zofran*) 4 Mg Tab, 4 MG PO NEEDED PRN for NAUSEA AND OR VOMITING, TAB 02/21/19 Current Medications IV Flush (NS 3 ml) 3 ml PER PROTOCOL IV ; Start 02/21/19 at 17:00 Acetaminophen (Tylenol Tab) 650 mg Q6H PRN PO .PAIN 1-3 OR TEMP; Start 02/21/19 at 17:00 Acetaminophen/ Hydrocodone Bitart ([place] (5/325)) 1 tab Q6H PRN PO .PAIN 4-6; Start 02/21/19 at 17:00 Heparin Sodium (Porcine) (Heparin (5000 Units/1ml)) 5,000 unit Q8 SC Last administered on 02/22/19 21:23; Admin Dose 5,000 UNIT; Start 02/21/19 at 22:00; Status Hold Phenazopyridine HCl (Pyridium) 100 mg TID PO Last administered on 02/23/19 09:57; Admin Dose 100 MG; Start 02/21/19 at 21:00 Cefepime HCl 50 ml @ 100 mls/hr Q12 IVPB Last administered on 02/23/19 09:57; Admin Dose 100 MLS/HR; Start 02/21/19 at 21:00 Tamsulosin HCl (Flomax) 0.4 mg HS PO Last administered on 02/22/19 21:11; Admin Dose 0.4 MG; Start 02/21/19 at 21:00 Sodium Chloride 1,000 ml @ 50 mls/hr Q20H IV Last administered on 02/22/19 17:28; Admin Dose 50 MLS/HR; Start 02/21/19 at 18:00 Prochlorperazine (Compazine Inj) 5 mg Q6H PRN IV NAUSEA AND/OR VOMITING Last administered on 02/23/19 02:27; Admin Dose 5 MG; Start 02/21/19 at 18:30 Carbamazepine (Tegretol) 100 mg TID PO Last administered on 02/23/19 09:57; Admin Dose 100 MG; Start 02/21/19 at 21:00 Pantoprazole (Protonix Tab) 40 mg DAILY@06 PO Last administered on 02/23/19 06:43; Admin Dose 40 MG; Start 02/22/19 at 09:30 Miscellaneous Information Patients own medicat... BID@,16 XX ; Start 02/22/19 at 16:00 Oxycodone/ Acetaminophen (Percocet (5/ 325)) 1 tab Q4H PRN PO MODERATE PAIN LEVEL 4-6 Last administered on 02/23/19 09:57; Admin Dose 1 TAB; Start 02/23/19 at 10:00 Baclofen (Lioresal) 5 mg TID PO ; Start 02/23/19 at 13:00 Meds reviewed: Yes Allergies Coded Allergies: NSAIDS (Non-Steroidal Anti-Inflamma (Verified Allergy, Unknown, 02/21/19) Allergies Reviewed: Yes Labs/Studies Labs Reviewed: Reviewed by anesthesiologist Result Diagram: 02/23/19 8119 02/23/19 0439 Laboratory Tests 02/23/19 04:39 test: N/A Pre-procedure Exam Last vitals Vital Signs Date Temp Pulse Resp B/P (MAP) Pulse Ox O2 O2 Flow FiO2 Time Delivery Rate 02/22/19 97.7 80 18 99/58 (72) 95 19:18 02/21/19 Room Air 18:33 Airway: Adequate mouth opening, Adequate thyromental dist Mallampati: Mallampati II Teeth: Normal Lung: Normal Heart: Normal ASA Physical Status ASA physical status: 2 Emergency: None Planned Anesthetic General/MAC: ETT (to the discretion of the anesthesiologist), LMA Pre-operative Attestations Prior to commencing anesthesia and surgery, the patient was re-evaluated, there was verification of: *The patient's identity *The results of appropriate recent lab work and preoperative vital signs *The above evaluation not changing prior to induction *Anesthetic plan, risk benefits, alternative and complications discussed with patient/family; questions answered; patient/family understands, accepts and wish es to proceed. LUIS ANTONIO WALTERS Feb 23, 2019 12:38
[2019-02-23] MEDS ORDERED: morphine 4 MG/ML VIAL IV STA (12:51)
[2019-02-23] MEDS: BACLOFEN 10 MG TAB PO SCH ×2 (12:56→20:31)
[2019-02-23] MEDS ORDERED: HYDROmorphONE 0.5 MG/0.5 ML SYG IV PRN (13:30)
--- NOTE | 2019-02-23 13:46 | PN ---
Date/Time of Note Date/Time of Note DATE: 02/23/19 TIME: 13:44 Objective Vitals Vital Signs Date Temp Pulse Resp B/P (MAP) Pulse Ox O2 O2 Flow FiO2 Time Delivery Rate 02/22/19 97.7 80 18 99/58 (72) 95 19:18 02/21/19 Room Air 18:33 Intake and Output 02/22/19 02/22/19 02/23/19 1515:00 23:00 07:00 IntakeIntake Total 50 ml 550 ml 500 ml OutputOutput Total 600 ml 150 ml BalanceBalance 50 ml -50 ml 350 ml Results Result Diagram: 02/23/19 0439 02/23/19 0439 Medications Medications Current Medications IV Flush (NS 3 ml) 3 ml PER PROTOCOL IV ; Start 02/21/19 at 17:00 Acetaminophen (Tylenol Tab) 650 mg Q6H PRN PO .PAIN 1-3 OR TEMP; Start 02/21/19 at 17:00 Acetaminophen/ Hydrocodone Bitart ([place] (5/325)) 1 tab Q6H PRN PO .PAIN 4-6; Start 02/21/19 at 17:00 Heparin Sodium (Porcine) (Heparin (5000 Units/1ml)) 5,000 unit Q8 SC Last administered on 02/22/19at 21:23; Admin Dose 5,000 UNIT; Start 02/21/19 at 22:00; Status Hold Phenazopyridine HCl (Pyridium) 100 mg TID PO Last administered on 02/23/19at 12:56; Admin Dose 100 MG; Start 02/21/19 at 21:00 Cefepime HCl 50 ml @ 100 mls/hr Q12 IVPB Last administered on 02/23/19at 09:57; Admin Dose 100 MLS/HR; Start 02/21/19 at 21:00 Tamsulosin HCl (Flomax) 0.4 mg HS PO Last administered on 02/22/19at 21:11; Admin Dose 0.4 MG; Start 02/21/19 at 21:00 Sodium Chloride 1,000 ml @ 50 mls/hr Q20H IV Last administered on 02/22/19at 17:28; Admin Dose 50 MLS/HR; Start 02/21/19 at 18:00 Prochlorperazine (Compazine Inj) 5 mg Q6H PRN IV NAUSEA AND/OR VOMITING Last administered on 02/23/19 02:27; Admin Dose 5 MG; Start 02/21/19 at 18:30 Carbamazepine (Tegretol) 100 mg TID PO Last administered on 02/23/19 12:57; Admin Dose 100 MG; Start 02/21/19 at 21:00 Pantoprazole (Protonix Tab) 40 mg DAILY@06 PO Last administered on 02/23/19 06:43; Admin Dose 40 MG; Start 02/22/19 at 09:30 Miscellaneous Information Patients own medicat... BID@10,16 XX ; Start 02/22/19 at 16:00 Oxycodone/ Acetaminophen (Percocet (5/ 325)) 1 tab Q4H PRN PO MODERATE PAIN LEVEL 4-6 Last administered on 02/23/19 09:57; Admin Dose 1 TAB; Start 02/23/19 at 10:00 Baclofen (Lioresal) 5 mg TID PO Last administered on 02/23/19 12:56; Admin Dose 5 MG; Start 02/23/19 at 13:00 Hydromorphone HCl (Dilaudid) 0.5 mg Q4H PRN IV SEVERE PAIN LEVEL 7-10 Last administered on 02/23/19 13:13; Admin Dose 0.5 MG; Start 02/23/19 at 13:30 VTE Prophylaxis Risk score (from Ns)>0 risk: 2 SCD applied (from Ns): Yes Lines/Catheters IV Catheter Type: Scott in Place: No Assessment/Plan Hospital Course Subjective Patient feels okay, had some difficulty with MRI due to continued pain, still complains of occasional dizziness and vision blurriness when she concentrates very hard however this is very intermittent Objective Physical exam General: Patient is laying in bed and answers questions appropriately Mentation: Patient is alert and oriented 4, Head: Normocephalic atraumatic Eyes: EOMI, pupils reactive to light Neck: Supple, nontender, midline Respiratory: Clear to auscultation bilaterally Cardiovascular: regular rate, no obvious murmurs Gastrointestinal: Suprapubic area mildly tender to palpation, bowel sounds heard. Neurological: Moves all extremities spontaneously Skin: No new skin lesions Assessment and plan Acute on chronic dysuria with urinary retention -Patient's urologist on board, Dr. Ramirez -Per urology recommendations, will order MRI with and without contrast, MRI reviewed, urology planning cystoscopy today Urinary tract infection -Likely secondary to patient's multiple urinary issues -Patient was on oral Levaquin, will change to IV cefepime for now -Urology recommendations appreciated -Infectious disease consulted -mild IV hydration Dizziness -Improving -Likely sequelae to everything is going on and UTI Blurry vision -Very mild, likely sequelae to above factors including UTI and dizziness -MRI head negative for acute issues -Patient states this only happens when she concentrates very hard prolonged periods of time, this may also be normal physiologic change however will monitor closely Nausea -As needed medications, improving Anemia -Very mild, monitor closely, follow-up outpatient Disposition -Pending cystoscopy today CALEB ADAMS Feb 23, 2019 13:46
[2019-02-23] MEDS ORDERED: LORAZEPAM 2 MG INJ IV PRN ×2 (15:00→18:30)
[2019-02-23] MEDS ORDERED: MIDAZOLAM 1 MG/ML 2 ML INJ ONE (16:22)
[2019-02-23] MEDS ORDERED: LIDOCAINE 2% (SDV) 5 ML INJ ONE (16:28)
[2019-02-23] MEDS ORDERED: PROPOFOL 20 ML ONE (16:28)
[2019-02-23] MEDS ORDERED: BUPIVACAINE 0.25%/EPI (SDV) 30 ML INJ ONE (16:56)
[2019-02-23] MEDS ORDERED: CEFAZOLIN 1 GM INJ ONE (18:06)
[2019-02-23] MEDS ORDERED: ONDANSETRON 4 MG INJ ONE (18:07)
--- NOTE | 2019-02-23 18:12 | HPN ---
Date/Time of Note Date/Time of Note DATE: 02/23/19 TIME: 18:12 Interval H&P Admission Note Pt. seen H&P reviewed: No system changes LASHAWN WHITTINGTON Feb 23, 2019 18:12
--- NOTE | 2019-02-23 18:17 | SIPON ---
Date/Time of Note Date/Time of Note DATE: 02/23/19 TIME: 18:16 Operative Report Preoperative Diagnosis cystocele Pelvic pain Postoperative Diagnosis cystocele Pelvic pain Operation/Procedure Performed cystocele repair cystoscopy Surgeon see signature line residential assistant None Anesthesia: general Estimated blood loss: 100 - 150 ml's Transfusion Required none Specimen Anterior vaginal wall Grafts/Implants none Complications none LASHAWN WHITTINGTON Feb 23, 2019 18:17
--- NOTE | 2019-02-23 18:25 | PAC ---
Date/Time of Note Date/Time of Note DATE: 02/23/19 TIME: 18:24 Post-Anesthesia Notes Post-Anesthesia Note Last documented vital signs Vital Signs Date Temp Pulse Resp B/P (MAP) Pulse Ox O2 O2 Flow FiO2 Time Delivery Rate 02/23/19 97.7 87 19 140/84 97 15:08 (102) 02/21/19 Room Air 18:33 Activity: WNL Respiratory function: WNL Cardiovascular function: WNL Mental status: Baseline Pain reasonably controlled: Yes Hydration appropriate: Yes Nausea/Vomiting absent: Yes Comments BP:126/67, P:88, Spo2:100%, T:98,8 VERONICA SCHWARTZ MD Feb 23, 2019 18:25
[2019-02-23] MEDS ORDERED: MEPERIDINE 25 MG INJ IV PRN (18:30)
[2019-02-23] MEDS ORDERED: MIDAZOLAM 1 MG/ML 2 ML INJ IV PRN (18:30)
[2019-02-23] MEDS ORDERED: ONDANSETRON 4 MG INJ IV PRN (18:30)
[2019-02-23] MEDS ORDERED: LABETALOL HCL 20MG INJ IV PRN (18:30)
[2019-02-23] MEDS ORDERED: OXYCODONE/ACETAMINOPHEN (5/325) TAB PO PRN (18:30)
[2019-02-23] MEDS ORDERED: DIPHENHYDRAMINE 50 MG INJ IV PRN (18:30)
[2019-02-23] MEDS ORDERED: METOCLOPRAMIDE 10 MG INJ IV PRN (18:30)
[2019-02-23] MEDS ORDERED: LORAZEPAM 0.5 MG TAB PO PRN (18:30)
[2019-02-23] MEDS ORDERED: FENTAnyl 50 MCG/ML VIAL IV PRN (18:30)
[2019-02-23] MEDS ORDERED: HYDROmorphONE 1 MG/5 ML IV SYRINGE IV PRN ×2 (18:30)
[2019-02-23] MEDS: SOD CHLORIDE 0.9% 1,000 ML IV SCH (20:30)
[2019-02-23] MEDS: TAMSULOSIN (SR) 0.4 MG CAP PO SCH (20:31)
[2019-02-23] MEDS: DOCUSATE SODIUM 100 MG CAP PO SCH (20:31)
--- NOTE | 2019-02-23 23:38 | CONS ---
DATE OF ADMISSION: 02/21/2019 DATE OF CONSULTATION: 02/23/2019 TYPE OF CONSULTATION: Infectious Disease. REASON FOR CONSULTATION: Antibiotic management. HISTORY OF PRESENT ILLNESS: Lizzy Mata is a 38-year-old female who was sent by urologist for admissi on with urethral obstruction and pelvic pain. The patient was referred by Dr. Ramirez for admission an d MR imaging. New Scott catheter was placed in his office. The recurrent chronic dysuria that she s tates has been going on for a year. She has urethral cyst. Cystoscopy was done and was noted to be abnormal. She had hematuria on the and denied fever or chills. She was placed on Levaquin 4 da ys prior. PAST MEDICAL HISTORY: Status post hysterectomy. She has a history of seizures and history of cancer . ALLERGIES: SHE IS ALLERGIC TO NONSTEROIDAL ANTI-INFLAMMATORY AGENTS. SOCIAL HISTORY: Does not smoke, drink, or abuse drugs. MEDICATIONS: Per chart. REVIEW OF SYSTEMS: As per HPI. On admission, her white count was 7.4, H and H 11.9 and 35.3, platelet count 170,000. BUN and creati nine 16/0.92. Glucose of 109. She has 75% neutrophils. Her urine is positive for nitrites. She garcia s 77 white cells per high-powered field, negative for leukocytes. The patient was started on cefepim e. She was seen by Dr. Ramirez. 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 An abdominal MRI was done, status post hysterectomy. Trace free pelvic fluid, which may be physiologic. Hepatom egaly with diffuse hepatic steatosis. Otherwise, unremarkable MRI of the abdomen and pelvis within t he limitation of this exam. It was done with IV contrast. An MRI of the brain was unremarkable. On the , her white count was 6.2. PHYSICAL EXAMINATION: GENERAL: The patient is lying in bed in no acute distress. VITAL SIGNS: Stable. She is afebrile. SKIN: Without generalized rash. HEENT: Within normal limits. NECK: Supple. LYMPH NODES: None palpable. CHEST: Decreased breath sounds at the bases. HEART: Without murmur or gallop. ABDOMEN: Soft, nontender, without organosplenomegaly or masses. She has suprapubic mild tenderness. EXTREMITIES: Without cyanosis, clubbing, or edema. RECTAL AND GENITAL: Deferred. NEUROLOGIC: No focal neurological abnormalities. IMPRESSION AND PLAN: The patient has acute on chronic dysuria with urinary retention and Scott alexi ter is no longer in place. The plan is to do cystoscopy and cystocele repair for the possibility of a urethral neoplasm. I will dictate my findings to the hospitalist and to Dr. Ramirez. Dictated By: BRADY FAIR MD, JD/SANCHEZ Conf#: [id number] DID#: [id number]
[2019-02-24] MEDS: PROCHLORPERAZINE 10 MG INJ IV PRN ×2 (00:53→07:43)
[2019-02-24] MEDS: OXYCODONE/ACETAMINOPHEN (5/325) TAB PO PRN ×2 (00:54→08:07)
[2019-02-24 01:21] VITALS: BP 132/84; PULSE 90; RESP 16
[2019-02-24] MEDS: HYDROmorphONE 0.5 MG/0.5 ML SYG IV PRN ×4 (01:49→22:58)
[2019-02-24] MEDS: SOD CHLORIDE 0.9% 1,000 ML IV SCH (06:00)
[2019-02-24] MEDS: PANTOPRAZOLE (EC) 40 MG TAB PO SCH (06:06)
[2019-02-24 07:54] VITALS: BP 126/79; PULSE 74; RESP 15
--- NOTE | 2019-02-24 08:01 | CONS ---
DATE OF ADMISSION: 02/21/2019 DATE OF CONSULTATION: 02/23/2019 CHIEF COMPLAINT: Pelvic pain. HISTORY OF PRESENT ILLNESS: This is a 38-year-old female with a longstanding history of pelvic pain and urethral pain. The patient presented to my office last week complaining of ongoing urethral pain which is getting increasingly worse. She reports that the pain was located along the end portion of her urethra. This pain was very bothersome to her. She has seen multiple other doctors. At some p oint, she has also been diagnosed with a cystocele. I examined her in my office. With our medical a ssistant in presence, I examined her. Examination revealed a cystocele. There was also tenderness a nd a bulge at the level of the distal urethra. It appeared that the patient may have a urethral dive rticulum on examination. A transvaginal ultrasound also revealed a possible cystic area along the an terior vaginal wall submucosally, worrisome for a urethral diverticulum. After she had this procedure done, the next day the patient called and left a message. She was extre vasquez angry for having undergone these tests. She expressed her anger and disappointment in terms of undergoing these tests. She then was adamant about seeing another doctor. She was also upset that memo warren had not given her pain medications. At the time when she was in my office, she requested pain medi cations; however, I explained to her that I would not be prescribing Ryegate for her. Subsequently, th e next day, the patient became increasingly angry and belligerent. 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 The patient went to the Emergency Room and a catheter was placed for her. However, in the Emergency Room she ref used keeping the catheter in and demanded the catheter to be removed. The catheter was removed again st medical advice. By the next day, patient redeveloped urinary retention and went back to the Emerg ency Room and had another catheter placed. At this time, she kept the catheter for about a day, but went back to the ER and demanded that the catheter be removed. Catheter was removed and the patient represented to the Emergency Room 1 more time to have a catheter placed. In the interim, my physician blood donor unit assistant and myself were in contact with the patient. She came to our office 2 days after her initial visit with me, she visited with my physician blood donor unit assistant. At that poin t we placed her on tamsulosin and closure to keep the catheter in. We also explained to her that she would be able to see me in about 3 days for a voiding trial. In the 3 days of waiting for a voiding trial, patient presented to the Emergency Room multiple times. Patient finally presented to my office on Thursday02/21/2019. At that point she agreed to undergoing a cystoscopy. As part of her complaints to us, she said that because she is a [employer] patient we wer e carlos are feet and we were not expeditiously taking care of her. I explained to her that that w as not true. In fact, we placed an expeditious request for pain management. We had to change the pa in management doctor to another pain management doctor. We also got an expeditious referral for a pe lvic MRI and an expeditious authorization for cystoscopy. By 02/21/2019, when patient was my office, we had already received the authorization for pain management consultation, cystoscopy and pelvic MR I. She agreed to undergoing a cystoscopy. At time of cystoscopy patient had a difficult time tolera ting the cystoscopy and repeatedly asked me to remove the cystoscope. I was not able to completely v isualize the bladder as the patient had peridium in her bladder. She would not allow me to distend h er bladder to be able to see the bladder carefully. Therefore, it was a suboptimal cystoscopy. At t his point, I recommended that patient go to the Emergency Room at [facility], get admitted s o that we can complete her workup in the hospital. The patient agreed to this. She presented to the emergency Room and was admitted to [facility]. At [facility], we ordered an MRI of abdomen and pelvis. The notation by the MRI staff in e EMR revealed that patient, while on the table, apparently multiple times while on the table was not cooperative. She demanded that another technology assistant do the MRI for her. She then said that she w as to leave the hospital. At one point she refused having the MRI, but finally she did agree to unde rgo the MRI study. I reviewed the MRI with Dr. Tono Segura personally in Dr. Segura's office. We reviewed the films togeth er. On MRI, there does not appear to be any evidence of a urethral diverticulum. The patient's Fole y catheter had been discontinued. Her bladder had urine and contrast in it. Therefore, it was a goo d study; however, no diverticulum was seen along the urethra. After the MRI was done, the catheter w as placed back for the patient. I saw her today at around 3:00 p.m. on 02/23/2019. Patient expressed appreciation for seeing me otis rizo. I explained to her that at this point, the only finding that we have is her cystocele. I explain ed to her that I do not know if the ongoing pain she has is due to her cystocele and I cannot say for sure whether her retention is secondary to cystocele; however I offered to perform a cystocele repai r for her and also do a cystoscopy under anesthesia. RECOMMENDATIONS: I explained to her that her other options would be to remove the catheter and give her a voiding trial. Other options would include asking other physicians to see the patient. Among these options, the patient asked me to proceed with her surgery. She also said that if I find anythi ng else that needs to be taken care of that she would be okay with me taking care other abnormalities in the urologic tract I explained the procedure to the patient. I explained to her that it is done through the vagina. The procedure was explained to the patient in detail with her in presen ce. Both she and her understand that risks include, but not limited to infection, bleeding, damage to adjacent structures, heart problems, lung problems, possibility of need for further surgery , DVT, PE, FL, CVA, nonresolution of her symptoms, worsening of her symptoms, worsening of her pain, nonresolution of her pain, need for other surgeries, bladder injury, ureteral injury, vaginal injury, long-term chronic pain with intercourse, fistula formation, bladder perforation, abscess formation, hematoma formation. All the patient's questions were answered. I also explained to the patient that a mesh will not be used for her. PAST MEDICAL HISTORY: Includes chronic pelvic pain as described above, history of epilepsy. PAST SURGICAL HISTORY: Includes hysterectomy. ALLERGIES: NSAIDs. MEDICATIONS: In the hospital include: 1. Ondansetron. 2. Tylenol. 3. Ryegate. 4. Morphine. 5. Heparin. 6. Baclofen. 7. Peridium. 8. Tegretol. 9. Cefepime. 10. Tamsulosin. PHYSICAL EXAMINATION: CONSTITUTIONAL: The patient appears to be groggy. Eyes are droopy. NECK: Normal appearing, symmetric. Normal tracheal position. No thyroid enlargement. GASTROINTESTINAL: Abdomen soft, normal bowel sounds, nondistended, nontender. GENITOURINARY: Performed in my office had revealed a grade II to III cystocele. Anterior vaginal wa ll tenderness and a bulge had also been palpated, worrisome for a diverticulum. ASSESSMENT: 1. Cystocele. 2. Pelvic pain. 3. Urethritis or urethral pain. 4. Urinary retention. RECOMMENDATIONS: I recommend for patient to undergo a cystoscopy and cystocele repair. This procedu re was explained to the patient in detail. Risks and benefits were discussed as indicated in the his tory of present illness in this document. All the patient's questions have been answered, no guarantees given. The patient would like to proce ed. Dictated By: LASHAWN WHITTINGTON MD SR/NTS Conf#: [id number] DID#: [id number] CC: CALEB ADAMS MD;*EndCC*
[2019-02-24] MEDS: PHENAZOPYRIDINE 100 MG TAB PO SCH ×3 (08:06→22:57)
[2019-02-24] MEDS: CEFEPIME 1GM/50 ML (PMX) 50 ML IVPB SCH (08:06)
[2019-02-24] MEDS: DOCUSATE SODIUM 100 MG CAP PO SCH ×2 (08:07→22:56)
[2019-02-24] MEDS: BACLOFEN 10 MG TAB PO SCH ×3 (08:08→22:57)
[2019-02-24] MEDS: CARBAMAZEPINE 200 MG TAB PO SCH ×3 (08:08→22:56)
--- NOTE | 2019-02-24 09:24 | OPR ---
DATE OF OPERATION: 02/23/2019 PREOPERATIVE DIAGNOSES: 1. Cystocele. 2. Pelvic pain. 3. Urinary retention. POSTOPERATIVE DIAGNOSES: 1. Cystocele. 2. Pelvic pain. 3. Urinary retention. PROCEDURE PERFORMED: 1. Cystocele repair. 2. Cystoscopy. INDICATIONS FOR PROCEDURE: This patient has a history of ongoing pelvic pain. She has undergone a w orkup including an MRI of pelvis. No abnormalities have been found on MRI. However, on physical examination, she has a grade II to III cystocele and has developed urinary retention. She is now pramod eduled to undergo cystocele repair and cystoscopy. Procedure has been explained to the patient and h er in detail. Risk and benefits have been discussed. All of her questions have been answere d, no guarantees given. The patient would like to proceed. FINDINGS: No urethral diverticulum was seen. A cystocele was repaired primarily without mesh. A cy stoscopy with temporary ureteral catheterization revealed no evidence of ureteral obstruction upon re duction of the cystocele. Cystoscopy revealed no diverticula, no bladder tumors, no bladder stones, no ureteral obstruction. No abnormalities within the ureter or the bladder to explain her retention other than the cystocele. PROCEDURE IN DETAIL: The patient was brought to the OR for other operating room, underwent general e ndotracheal tube anesthesia. She was placed in lithotomy position. Abdomen, perineum and genitalia were prepped and draped in usual sterile fashion. The vaginal examination revealed a grade II to III cystocele. A Scott catheter was replaced for the patient sterilely. Anterior vaginal wall was infiltrated with Marcaine plus epinephrine. A vaginal wall incision was ma de longitudinally. This incision was made from about the area of the apex of the vagina to about 3 c m proximal to the urethral meatus. The anterior vaginal wall on the right side was then carefully di ssected off the area of the urethra. This was done on the left side, then on the right side. Urethr a was examined. No diverticula, bulges masses or abnormalities were palpated along the urethra. No abnormalities were seen either. At this point, the anterior vaginal wall was further dissected off t he posterior aspect of the bladder. Of note, the anterior vaginal wall appeared to be relatively thi n, especially closer towards the apex of the vagina. Initially, the posterior aspect of the bladder was dissected. Next, the more posterolateral aspect of the bladder were dissected off the vaginal wa ll. Dissection was then carried towards the lateral paravaginal tissues. As this was done, the post erolateral aspects of the bladder were further dissected, off this area until the perivaginal tissues had been freed off from the posterolateral aspect of the bladder bilaterally. Care was taken not to injure the bladder. There was no evidence of bladder perforation. Once the bladder had been dissec ade all the way to the apex of the vagina and the lateral aspect of the bladder had also been dissect ed off the paravaginal tissues, attention was paid to placement of the cystocele sutures. A 0 Vicryl sutures and UR-[address] needles were used to place sutures along the paravaginal tissues. These were done posteriorly then marching up more anteriorly. Five sutures were placed. Care was taken not to incor porate the posterior bladder wall as the sutures have been placed. Once the sutures were placed, the sutures were individually tied. This effectively brought the paravaginal tissues laterally together . As this was done, the bladder was then lifted anteriorly. The cystocele was reduced. A cystoscopy was performed. Urethra was carefully examined. No abnormalities within the urethra wer e seen. Bladder was then entered. Bladder was carefully examined. No abnormalities within the blad timbo were seen. The mucosa appeared to be normal. There were no stones. There were no tumors within the bladder. Bladder contained 1+ trabeculation, no diverticula. No cellules or ureteroceles were seen. Bilateral ureteral orifices were identified. At this point, an open-ended catheter was advanc ed up the right ureteral orifice with a guide of a Glidewire. Glidewire was initially advanced. Nex t, the open-ended catheter was advanced to 25 cm. No obstruction was identified. Similarly on the l eft side, the open-ended catheter was advanced with the use of a Glidewire. This was also advanced t o 25 cm and no evidence of obstruction was identified. This indicated that bilateral ureters were co mpletely open then they were nonobstructed after the cystocele sutures had been tied. The cystoscope was then discontinued. At this point, attention was then paid back to the vagina. Excess anterior vaginal wall tissue was e xcised. Next, the vaginal mucosa was reapproximated using a 2-0 Vicryl running suture. This was don e by placement of the sutures in a full thickness manner. The anterior vaginal wall was closed longi tudinally in this fashion. The 2 to 3 cm of the opening more distally was closed with a 3-0 Vi cryl running suture. A vaginal packing using Xeroform gauze was then placed into the vagina. The Fo thomas catheter had also been replaced. Prior to closure of the vaginal wall, the bladder had been inst illed with saline and no extravasation was identified, indicating no injury to the bladder wall. The patient was then placed back in a supine position. She was awakened, extubated, and taken to recove ry room in stable condition. POSTPROCEDURE CONDITION: Stable. COMPLICATIONS: None. BLOOD LOSS: 150 mL. BLOOD ADMINISTERED: None. SPECIMENS SENT TO LAB: Anterior vaginal wall. Dictated By: LASHAWN WHITTINGTON MD SR/SANCHEZ Conf#: [id number] DID#: [id number]
[2019-02-24] MEDS: SOD CHLORIDE 0.45% 1,000 ML IV SCH ×2 (09:35→21:02)
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
[2019-02-24] MEDS ORDERED: LORAZEPAM 0.5 MG TAB PO PRN (13:00)
--- NOTE | 2019-02-24 13:28 | CONS ---
Assessment/Plan Assessment/Plan Hospital Course (Demo Recall) Patient is alert looks comfortable no fevers overnight no vomiting diarrhea she actually constipated WBC yesterday was 4.1 BUN 10 creatinine 0.66, no labs this morning Urine culture negative since admission Indwelling: Scott catheter Antimicrobials: Ceftriaxone Physical examination: Well-developed middle-aged white woman who is alert in no distress. Head atraumatic normocephalic sclera nonicteric neck is supple chest rise symmetrical breath sounds clear. Heart: S1-S2. Abdomen soft bowel sounds present. Extremities without cyanosis edema. Assessment: 1. Pelvic pain secondary to cystocele and urinary retention, status post cystoscopy/cystocele repair 02/23/19 2. Constipation 3. Recurrent UTI Plan: Patient remains stable postoperatively, continue present care pain management, follow urology recommendations Consultation Date/Type/Reason Admit Date/Time Feb 21, 2019 at 16:59 Initial Consult Date Type of Consult id Date/Time of Note DATE: 02/24/19 TIME: 13:27 Exam/Review of Systems Exam Vitals Vital Signs Date Temp Pulse Resp B/P (MAP) Pulse Ox O2 O2 Flow FiO2 Time Delivery Rate 02/24/19 98.3 74 15 126/79 95 Room Air 07:54 (95) Intake and Output 02/23/19 02/23/19 02/24/19 1515:00 23:00 07:00 IntakeIntake Total 50 ml 2090 ml 880 ml OutputOutput Total 1600 ml 1000 ml BalanceBalance 50 ml 490 ml -120 ml Results Result Diagram: 02/23/19 0439 02/23/19 0439 Results 24hrs Laboratory Tests Test 02/23/19 23:30 Urine Opiates Screen Positive Urine Barbiturates Negative Urine Amphetamines Screen Negative Urine Benzodiazepines Screen Positive Urine Cocaine Screen Negative Urine Cannabinoids Positive Medications Medication Current Medications IV Flush (NS 3 ml) 3 ml PER PROTOCOL IV ; Start 02/21/19 at 17:00 Acetaminophen (Tylenol Tab) 650 mg Q6H PRN PO .PAIN 1-3 OR TEMP; Start 02/21/19 at 17:00 Acetaminophen/ Hydrocodone Bitart ([place] (5/325)) 1 tab Q6H PRN PO .PAIN 4-6; Start 02/21/19 at 17:00 Heparin Sodium (Porcine) (Heparin (5000 Units/1ml)) 5,000 unit Q8 SC Last administered on 02/22/19 21:23; Admin Dose 5,000 UNIT; Start 02/21/19 at 22:00; Status Hold Phenazopyridine HCl (Pyridium) 100 mg TID PO Last administered on 02/24/19 13:06; Admin Dose 100 MG; Start 02/21/19 at 21:00 Tamsulosin HCl (Flomax) 0.4 mg HS PO Last administered on 02/23/19 20:31; Admin Dose 0.4 MG; Start 02/21/19 at 21:00 Prochlorperazine (Compazine Inj) 5 mg Q6H PRN IV NAUSEA AND/OR VOMITING Last administered on 02/24/19 07:43; Admin Dose 5 MG; Start 02/21/19 at 18:30 Carbamazepine (Tegretol) 100 mg TID PO Last administered on 02/24/19 13:07; Admin Dose 100 MG; Start 02/21/19 at 21:00 Pantoprazole (Protonix Tab) 40 mg DAILY@06 PO Last administered on 02/24/19 06:06; Admin Dose 40 MG; Start 02/22/19 at 09:30 Miscellaneous Information Patients own medicat... BID@10,16 XX ; Start 02/22/19 at 16:00 Oxycodone/ Acetaminophen (Percocet (5/ 325)) 1 tab Q4H PRN PO MODERATE PAIN LEVEL 4-6 Last administered on 02/24/19 08:07; Admin Dose 1 TAB; Start 02/23/19 at 10:00 Baclofen (Lioresal) 5 mg TID PO Last administered on 02/24/19 13:06; Admin Dose 5 MG; Start 02/23/19 at 13:00 Hydromorphone HCl (Dilaudid) 0.5 mg Q6H PRN IV SEVERE PAIN LEVEL 7-10 Last administered on 02/24/19 11:18; Admin Dose 0.5 MG; Start 02/23/19 at 18:30 Docusate Sodium (Colace) 100 mg BID PO Last administered on 02/24/19 08:07; Admin Dose 100 MG; Start 02/23/19 at 21:00 Sodium Chloride 1,000 ml @ 40 mls/hr Q24H IV Last administered on 6/20/19at 09:35; Admin Dose 40 MLS/HR; Start 02/24/19 at 09:30 Ceftriaxone Sodium 50 ml @ 100 mls/hr Q24H IVPB ; Start 02/24/19 at 21:00 Lorazepam (Ativan) 1 mg Q6 PRN PO ANXIETY; Start 02/24/19 at 13:00 Buspirone HCl (Buspar) 5 mg BID PO ; Start 02/24/19 at 13:00 Duloxetine HCl (Cymbalta) 20 mg DAILY PO ; Start 02/24/19 at 13:00 MARITZA ANTHONY NP Feb 24, 2019 13:27
[2019-02-24] MEDS: DULOXETINE 20 MG CAP DR PO SCH (14:12)
[2019-02-24] MEDS: BUSPIRONE 5 MG TAB PO SCH ×2 (14:12→22:56)
[2019-02-24] MEDS ORDERED: LORAZEPAM 2 MG INJ IV PRN (14:30)
[2019-02-24 15:06] VITALS: BP 158/86; RESP 16
--- NOTE | 2019-02-24 16:07 | PN ---
Date/Time of Note Date/Time of Note DATE: 02/24/19 TIME: 15:50 Objective Vitals Vital Signs Date Temp Pulse Resp B/P (MAP) Pulse Ox O2 O2 Flow FiO2 Time Delivery Rate 02/24/19 98.9 16 158/86 97 Room Air 15:06 (110) 02/24/19 74 07:54 Intake and Output 02/23/19 02/23/19 02/24/19 1515:00 23:00 07:00 IntakeIntake Total 50 ml 2090 ml 880 ml OutputOutput Total 1600 ml 1000 ml BalanceBalance 50 ml 490 ml -120 ml Results Result Diagram: 02/23/19 0439 02/23/19 0439 Medications Medications Current Medications IV Flush (NS 3 ml) 3 ml PER PROTOCOL IV ; Start 02/21/19 at 17:00 Acetaminophen (Tylenol Tab) 650 mg Q6H PRN PO .PAIN 1-3 OR TEMP; Start 02/21/19 at 17:00 Acetaminophen/ Hydrocodone Bitart ([place] (5/325)) 1 tab Q6H PRN PO .PAIN 4-6; Start 02/21/19 at 17:00 Heparin Sodium (Porcine) (Heparin (5000 Units/1ml)) 5,000 unit Q8 SC Last administered on 02/22/19at 21:23; Admin Dose 5,000 UNIT; Start 02/21/19 at 22:00; Status Hold Phenazopyridine HCl (Pyridium) 100 mg TID PO Last administered on 02/24/19at 13:06; Admin Dose 100 MG; Start 02/21/19 at 21:00 Tamsulosin HCl (Flomax) 0.4 mg HS PO Last administered on 02/23/19at 20:31; Admin Dose 0.4 MG; Start 02/21/19 at 21:00 Prochlorperazine (Compazine Inj) 5 mg Q6H PRN IV NAUSEA AND/OR VOMITING Last administered on 02/24/19at 07:43; Admin Dose 5 MG; Start 02/21/19 at 18:30 Carbamazepine (Tegretol) 100 mg TID PO Last administered on 02/24/19at 13:07; Admin Dose 100 MG; Start 02/21/19 at 21:00 Pantoprazole (Protonix Tab) 40 mg DAILY@06 PO Last administered on 02/24/19 06:06; Admin Dose 40 MG; Start 02/22/19 at 09:30 Miscellaneous Information Patients own medicat... BID@10,16 XX ; Start 02/22/19 at 16:00 Oxycodone/ Acetaminophen (Percocet (5/ 325)) 1 tab Q4H PRN PO MODERATE PAIN LEVEL 4-6 Last administered on 02/24/19 08:07; Admin Dose 1 TAB; Start 02/23/19 at 10:00 Baclofen (Lioresal) 5 mg TID PO Last administered on 02/24/19 13:06; Admin Dose 5 MG; Start 02/23/19 at 13:00 Hydromorphone HCl (Dilaudid) 0.5 mg Q6H PRN IV SEVERE PAIN LEVEL 7-10 Last administered on 02/24/19 11:18; Admin Dose 0.5 MG; Start 02/23/19 at 18:30 Docusate Sodium (Colace) 100 mg BID PO Last administered on 02/24/19 08:07; Admin Dose 100 MG; Start 02/23/19 at 21:00 Sodium Chloride 1,000 ml @ 40 mls/hr Q24H IV Last administered on 02/24/19 09:35; Admin Dose 40 MLS/HR; Start 02/24/19 at 09:30 Ceftriaxone Sodium 50 ml @ 100 mls/hr Q24H IVPB ; Start 02/24/19 at 21:00 Buspirone HCl (Buspar) 5 mg BID PO Last administered on 02/24/19 14:12; Admin Dose 5 MG; Start 02/24/19 at 13:00 Duloxetine HCl (Cymbalta) 20 mg DAILY PO Last administered on 02/24/19 14:12; Admin Dose 20 MG; Start 02/24/19 at 13:00 Lorazepam (Ativan) 0.5 mg Q6H PRN IV anxiety; Start 02/24/19 at 14:30 VTE Prophylaxis Risk score (from Nsg)>0 risk: 2 SCD applied (from Nsg): Yes Lines/Catheters IV Catheter Type: Scott in Place: No Assessment/Plan Hospital Course Subjective Patient at time of evaluation feels okay, slightly fatigued however had a rough night, multiple anxiety attacks, patient likely has posttraumatic stress disorder from incidents as a child. Patient also later on throughout the day wanted to leave AGAINST MEDICAL ADVICE as she felt another anxiety attack however convince patient to stay due to ongoing treatment regarding her urinary symptoms. Objective Physical exam General: Patient is laying in bed and answers questions appropriately Mentation: Patient is alert and oriented 4, Head: Normocephalic atraumatic Eyes: EOMI, pupils reactive to light Neck: Supple, nontender, midline Respiratory: Clear to auscultation bilaterally Cardiovascular: regular rate, no obvious murmurs Gastrointestinal: Suprapubic area mildly tender to palpation, bowel sounds heard. Neurological: Moves all extremities spontaneously Skin: No new skin lesions Assessment and plan Acute on chronic dysuria with urinary retention -Patient's urologist on board, Dr. Ramirez -Per urology recommendations, will order MRI with and without contrast, MRI reviewed -Cystoscopy with cystocele repair done yesterday, currently with vaginal packing in, after speaking with urologist, okay to remove vaginal packing today, urology will check patient tomorrow and determine when to remove Scott catheter. Major depressive disorder with rule out posttraumatic stress disorder -BuSpar and Cymbalta started per psychiatry -Ativan as needed -Patient had a traumatic event during childhood -Patient has multiple bouts of anxiety attacks and mood disorders during this admission, on multiple attempts wants to leave AGAINST MEDICAL ADVICE but changes her mind, will need to treat anxiety attacks appropriately. Urinary tract infection -Likely secondary to patient's multiple urinary issues -Patient was on oral Levaquin, patient stated possible fatigue with cefepime so will change to IV ceftriaxone per infectious disease -Urology recommendations appreciated -Infectious disease consulted -mild IV hydration Dizziness -Improving - unlikely significance as patient does not complain about this issue currently however as patient's urinary issues are resolving patient's dizziness also seems to be resolving Blurry vision, intermittent for over 1 year -Very mild, likely sequelae to above factors including UTI and dizziness, however patient has also had mild vision issues for the past year and this is not a new finding per patient ever since patient had a bad seizure approximately 1 year ago -MRI head negative for acute issues -Patient states this only happens when she concentrates very hard prolonged periods of time, this may also be normal physiologic change however will monitor closely, Nausea -As needed medications, improving Anemia -Very mild, monitor closely, follow-up outpatient Disposition -We will need to follow-up with urology recommendations, will reevaluate removal of Scott tomorrow. CALEB ADAMS Feb 24, 2019 16:07
[2019-02-24] MEDS ORDERED: oxyCODONE 5 MG TAB PO PRN (17:00)
--- NOTE | 2019-02-24 17:20 | CONS ---
Assessment/Plan Assessment/Plan Assessment/Plan (Daily) With nursing in the room I will defer physical examination as patient is extremely emotional at this time I told her that I would do a more comprehensive physical examination when she is more calm. In the interim I fully agree with Dr. Truong that this patient needs a great deal of support and hopefully institution of antidepressants may be beneficial however will looking at at least 2 weeks before we see any positive effect. In interim time I agree with the use of low-dose of benzodiazepines to try and resolve some of her anxiety postoperatively. We have negotiated and patient is very reasonable she wants a low dose of Percocet although we have changed that to just OxyIR 5 mg every 4 as needed for pain with told the use of nonsteroidal anti-inflammatory medications as much as possible and low-dose of Ativan. Also 1 low-dose of 2.5 mg of Dilaudid nightly. Patient does not want high dose of opioids throughout the day. Continue supportive thank you very much for this consultation. Consultation Date/Type/Reason Admit Date/Time Feb 21, 2019 at 16:59 Date/Time of Note DATE: 02/24/19 TIME: 17:16 Hx of Present Illness This is a 38-year-old female who was admitted to [facility] on February 21, 2019 with an admitting diagnosis of acute on chronic urinary retention and urinary tract infection. I am asked see patient in pain management consultation. Patient adamantly denies using any controlled medications at home she used to smoke she is a nondrinker and she was admitted to [facility] with uncontrolled pelvic discomfort associated with dysuria and frequency which is been a long-standing medical problem had been seen by her outpatient neurologist. She was admitted this time for definitive surgical procedure. Patient states postoperatively now she has continued pelvic discomfort and left and right hip pain. When I walked in room patient had her Scott catheter in hand and was getting ready to walk out AGAINST MEDICAL ADVICE. He is very emotional and very difficult to get any history from her she states that her pain is not being addressed and her questions are not being answered. I am a while well aware of the fact that she has been spoken with in multiple occasions by nursing administration patient's direct primary care nurse and by Dr. Brandon Truong. Patient once again is extremely emotional is very difficult to get a cogent history of the severity and character of her pain but she states it is profoundly out of control. She has been treated with multiple different opioids and benzodiazepines however her IV line is lost at this time she is requ esting after long conversation that it be reinserted once again and to be given just very low-dose of Dilaudid for pain management. I left side once again the patient is extremely emotional at this time and is difficult to get a good history from her she does rate her pain is out of control which is affecting her physical functioning and sleeping pattern. To me she denies a past medical history of opioid abuse use of any recreational drugs. She denies current nausea vomiting constipation itchiness mental cloudiness sweating fatigue drowsiness disorientation. She denies purposefully over sedating as a outpatient she has had extremely negative mood changes since being hospitalized in postop.. She is somewhat unkempt at this time but not impaired appearing. She is not requesting specific pain control medications early renewals or high dosages of opioids or benzodiazepines. Is not negotiating with me for her pain control medications, rather I advised and she has agreed with treatment recommendations. Constitutional: no complaints, improved Eyes: no complaints ENT: no complaints Respiratory: no complaints Cardiovascular: no complaints Gastrointestinal: no complaints Genitourinary: no complaints, other (Refer to history of present illness) Musculoskeletal: no complaints Skin: no complaints Neurologic: no complaints Endocrine: no complaints Lymphatic: no complaints Psychological: no complaints, nl mood/affect Immunologic: no complaints Past Medical History Medical History: other (Urinary tract infections chronic dysuria) Home Meds Active Scripts Hydrocodone/Acetaminophen ([place] 5-325 Tablet) 1 Each Tablet, 1 TAB PO Q6H PRN for PAIN, #7 TAB Prov:CARLOS JONES MD 02/18/19 Baclofen* (Baclofen*) 10 Mg Tablet, 10 MG PO TID, #10 TAB Prov:CARLOS JONES MD 02/18/19 Levofloxacin* (Levaquin*) 750 Mg Tablet, 750 MG PO DAILY for 5 Days, TAB Prov:CARLOS JONES MD 02/18/19 Reported Medications Carbamazepine* (Carbamazepine*) 100 Mg Tab.chew, 100 MG PO TID, #90 TAB.CHEW 02/21/19 Phenazopyridine Hcl* (Phenazopyridine Hcl*) 200 Mg Tablet, 200 MG PO DAILY, TAB 02/21/19 Tamsulosin Hcl* (Flomax*) 0.4 Mg Cap.er.24h, 0.8 MG PO HS, CAP 02/21/19 Ondansetron Hcl* (Zofran*) 4 Mg Tab, 4 MG PO NEEDED PRN for NAUSEA AND OR VOMITING, TAB 02/21/19 Medications Current Medications IV Flush (NS 3 ml) 3 ml PER PROTOCOL IV ; Start 02/21/19 at 17:00 Acetaminophen (Tylenol Tab) 650 mg Q6H PRN PO .PAIN 1-3 OR TEMP; Start 02/21/19 at 17:00 Heparin Sodium (Porcine) (Heparin (5000 Units/1ml)) 5,000 unit Q8 SC Last administered on 02/22/19 21:23; Admin Dose 5,000 UNIT; Start 02/21/19 at 22:00; Status Hold Phenazopyridine HCl (Pyridium) 100 mg TID PO Last administered on 02/24/19 13:06; Admin Dose 100 MG; Start 02/21/19 at 21:00 Tamsulosin HCl (Flomax) 0.4 mg HS PO Last administered on 02/23/19 20:31; Admin Dose 0.4 MG; Start 02/21/19 at 21:00 Prochlorperazine (Compazine Inj) 5 mg Q6H PRN IV NAUSEA AND/OR VOMITING Last administered on 02/24/19at 07:43; Admin Dose 5 MG; Start 02/21/19 at 18:30 Carbamazepine (Tegretol) 100 mg TID PO Last administered on 02/24/19 13:07; Admin Dose 100 MG; Start 02/21/19 at 21:00 Pantoprazole (Protonix Tab) 40 mg DAILY@06 PO Last administered on 02/24/19 06:06; Admin Dose 40 MG; Start 02/22/19 at 09:30 Miscellaneous Information Patients own medicat... BID@10,16 XX ; Start 02/22/19 at 16:00 Baclofen (Lioresal) 5 mg TID PO Last administered on 02/24/19 13:06; Admin Dose 5 MG; Start 02/23/19 at 13:00 Docusate Sodium (Colace) 100 mg BID PO Last administered on 02/24/19 08:07; Admin Dose 100 MG; Start 02/23/19 at 21:00 Sodium Chloride 1,000 ml @ 40 mls/hr Q24H IV Last administered on 02/24/19at 09:35; Admin Dose 40 MLS/HR; Start 02/24/19 at 09:30 Ceftriaxone Sodium 50 ml @ 100 mls/hr Q24H IVPB ; Start 02/24/19 at 21:00 Buspirone HCl (Buspar) 5 mg BID PO Last administered on 02/24/19at 14:12; Admin Dose 5 MG; Start 02/24/19 at 13:00 Duloxetine HCl (Cymbalta) 20 mg DAILY PO Last administered on 02/24/19at 14:12; Admin Dose 20 MG; Start 02/24/19 at 13:00 Hydromorphone HCl (Dilaudid) 0.5 mg HS PRN IV PAIN; Start 02/24/19 at 17:00 Lorazepam (Ativan) 0.5 mg Q6H PRN IV ANXIETY; Start 02/24/19 at 17:00 Oxycodone HCl (Roxicodone) 5 mg Q4H PRN PO MODERATE PAIN LEVEL 4-6; Start 02/24/19 at 17:00 Allergies: Coded Allergies: NSAIDS (Non-Steroidal Anti-Inflamma (Verified Allergy, Unknown, 02/21/19) Past Surgical History Past Surgical Hx: other (Cannot obtain at this time patient is extremely emotional) Social History Smoking Status: Former smoker Drug Use: other (None) Exam/Review of Systems Exam Vitals Vital Signs Date Temp Pulse Resp B/P (MAP) Pulse Ox O2 O2 Flow FiO2 Time Delivery Rate 02/24/19 98.9 16 158/86 97 Room Air 15:06 (110) 02/24/19 74 07:54 Intake and Output 02/23/19 02/23/19 02/24/19 1515:00 23:00 07:00 IntakeIntake Total 50 ml 2090 ml 880 ml OutputOutput Total 1600 ml 1000 ml BalanceBalance 50 ml 490 ml -120 ml Results Result Diagram: 02/23/19 0439 02/23/19 0439 Results 24hrs Laboratory Tests Test 02/23/19 23:30 Urine Opiates Screen Positive Urine Barbiturates Negative Urine Amphetamines Screen Negative Urine Benzodiazepines Screen Positive Urine Cocaine Screen Negative Urine Cannabinoids Positive Medications Medication Current Medications IV Flush (NS 3 ml) 3 ml PER PROTOCOL IV ; Start 02/21/19 at 17:00 Acetaminophen (Tylenol Tab) 650 mg Q6H PRN PO .PAIN 1-3 OR TEMP; Start 02/21/19 at 17:00 Heparin Sodium (Porcine) (Heparin (5000 Units/1ml)) 5,000 unit Q8 SC Last administered on 02/22/19 21:23; Admin Dose 5,000 UNIT; Start 02/21/19 at 22:00; Status Hold Phenazopyridine HCl (Pyridium) 100 mg TID PO Last administered on 02/24/19 13:06; Admin Dose 100 MG; Start 02/21/19 at 21:00 Tamsulosin HCl (Flomax) 0.4 mg HS PO Last administered on 02/23/19 20:31; Admin Dose 0.4 MG; Start 02/21/19 at 21:00 Prochlorperazine (Compazine Inj) 5 mg Q6H PRN IV NAUSEA AND/OR VOMITING Last administered on 02/24/19 07:43; Admin Dose 5 MG; Start 02/21/19 at 18:30 Carbamazepine (Tegretol) 100 mg TID PO Last administered on 02/24/19 13:07; Admin Dose 100 MG; Start 02/21/19 at 21:00 Pantoprazole (Protonix Tab) 40 mg DAILY@06 PO Last administered on 02/24/19 06:06; Admin Dose 40 MG; Start 02/22/19 at 09:30 Miscellaneous Information Patients own medicat... BID@10,16 XX ; Start 02/22/19 at 16:00 Baclofen (Lioresal) 5 mg TID PO Last administered on 02/24/19 13:06; Admin Dose 5 MG; Start 02/23/19 at 13:00 Docusate Sodium (Colace) 100 mg BID PO Last administered on 02/24/19 08:07; Admin Dose 100 MG; Start 02/23/19 at 21:00 Sodium Chloride 1,000 ml @ 40 mls/hr Q24H IV Last administered on 02/24/19at 09:35; Admin Dose 40 MLS/HR; Start 02/24/19 at 09:30 Ceftriaxone Sodium 50 ml @ 100 mls/hr Q24H IVPB ; Start 02/24/19 at 21:00 Buspirone HCl (Buspar) 5 mg BID PO Last administered on 02/24/19at 14:12; Admin Dose 5 MG; Start 02/24/19 at 13:00 Duloxetine HCl (Cymbalta) 20 mg DAILY PO Last administered on 02/24/19at 14:12; Admin Dose 20 MG; Start 02/24/19 at 13:00 Hydromorphone HCl (Dilaudid) 0.5 mg HS PRN IV PAIN; Start 02/24/19 at 17:00 Lorazepam (Ativan) 0.5 mg Q6H PRN IV ANXIETY; Start 02/24/19 at 17:00 Oxycodone HCl (Roxicodone) 5 mg Q4H PRN PO MODERATE PAIN LEVEL 4-6; Start 02/24/19 at 17:00 APOLLO RAO J Feb 24, 2019 17:20
[2019-02-24] MEDS: LORAZEPAM 2 MG INJ IV PRN ×2 (17:23→23:57)
[2019-02-24 21:00] VITALS: BP 119/70; PULSE 65; RESP 16
[2019-02-24] MEDS ORDERED: CEFTRIAXONE 1 GM/50 ML (PMX) 50 ML IVPB SCH (21:00)
[2019-02-24] MEDS: TAMSULOSIN (SR) 0.4 MG CAP PO SCH (22:56)
[2019-02-25] VITALS (9 sets, daily range): BP systolic 106–160; BP diastolic 56–87; PULSE 55–93; RESP 16–18
[2019-02-25] MEDS: PROCHLORPERAZINE 10 MG INJ IV PRN ×4 (00:21→20:39)
[2019-02-25] MEDS: PANTOPRAZOLE (EC) 40 MG TAB PO SCH ×2 (06:31→17:55)
[2019-02-25] MEDS: HYDROmorphONE 0.5 MG/0.5 ML SYG IV PRN ×2 (08:26→20:38)
[2019-02-25] MEDS: BUSPIRONE 5 MG TAB PO SCH (09:16)
[2019-02-25] MEDS: PHENAZOPYRIDINE 100 MG TAB PO SCH ×4 (09:16→21:18)
[2019-02-25] MEDS: DULOXETINE 20 MG CAP DR PO SCH (09:16)
[2019-02-25] MEDS: BACLOFEN 10 MG TAB PO SCH ×4 (09:16→21:17)
[2019-02-25] MEDS: DOCUSATE SODIUM 100 MG CAP PO SCH ×2 (09:16→21:16)
[2019-02-25] MEDS: oxyCODONE 5 MG TAB PO PRN ×2 (09:16→17:56)
[2019-02-25] MEDS: CARBAMAZEPINE 200 MG TAB PO SCH ×3 (10:14→21:18)
--- NOTE | 2019-02-25 11:33 | CONSI ---
Assessment/Plan Assessment/Plan Assessment/Plan (Recall) 38 F c/ Hx of remote TBI c/b epilepsy...and other comorbidities...who presents for evaluation of urinary Sx. She notes longstanding though progressive diplopia and episodic strabismus...for which neurology is consulted. 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 MRI brain was unrevealing. 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 Patient has been dealing with intermittent dysuria as well as worsening urinary retention for many months and now there is a questionable urinary diverticulum when patient was at the urologist office where he performed cystoscopy today. Currently patient complains of urinary and urethral site pain and has a Scott catheter otherwise is at baseline. Patient denies chest pain, shortness of breath, headache. Patient does state she has some nausea and some dizziness. As well, she notes progressive double vision and crossing of her eyes over the last year...for which neurology is consulted. 12 PT ROS as noted in HPI Objective Exam Vitals Vital Signs Date Temp Pulse Resp B/P (MAP) Pulse Ox O2 O2 Flow FiO2 Time Delivery Rate 02/25/19 98.5 75 18 114/62 96 Room Air 07:51 (79) Intake and Output 02/24/19 02/24/19 02/25/19 1515:00 23:00 07:00 IntakeIntake Total 200 ml 600 ml 870 ml OutputOutput Total 1000 ml 1100 ml BalanceBalance 200 ml -400 ml -230 ml Exam PE: Gen Appearance: No Apparent Distress HEENT: Normocephalic Cardiovascular: Regular rate Lungs: Clear bilaterally Abdomen: Soft Extremities: Dry NE: The patient was alert and oriented. Language was normal. Fund of knowledge was normal. Pupils were equal and reactive to light. There was no afferent pupillary defect. Visual meehan were normal. Funduscopic examination was limited. Extra-ocular movements were full. Ptosis was absent. There was no nystagmus. Facial sensation was normal. Face was symmetric with normal strength. Hearing was intact. Palate movements were normal. Neck strength was normal. There was normal tongue bulk and speed of movement. Tone was normal. Muscle bulk was normal. I did not see fasciculations. Arms and legs were strong. Vibration sensation was normal. Temperature and pinprick sensation was normal. Rapid alternating movements were normal. There was no dysmetria. There was no intention tremor. Gait was deferred due to bedrest. Arm and leg reflexes were symmetric. Oquendo's sign was absent. Plantar responses were flexor. Results Result Diagram: 02/25/19 0739 02/25/19 0739 Results 24hrs Laboratory Tests Test 02/25/19 07:39 White Blood Count 4.6 L Red Blood Count 3.29 L Hemoglobin 10.5 L Hematocrit 30.7 L Mean Corpuscular Volume 93.3 Mean Corpuscular Hemoglobin 31.9 Mean Corpuscular Hemoglobin Concent 34.2 Red Cell Distribution Width 11.3 L Platelet Count 141 Mean Platelet Volume 10.9 H Immature Granulocytes % 0.200 Neutrophils % 62.7 Lymphocytes % 25.0 Monocytes % 8.8 Eosinophils % 2.6 Basophils % 0.7 Nucleated Red Blood Cells % 0.0 Immature Granulocytes # 0.010 Neutrophils # 2.9 Lymphocytes # 1.1 Monocytes # 0.4 Eosinophils # 0.1 Basophils # 0.0 Nucleated Red Blood Cells # 0.0 Sodium Level 141 Potassium Level 3.7 Chloride Level 106 Carbon Dioxide Level 25 Anion Gap 10 Blood Urea Nitrogen 8 Creatinine 0.65 Est Glomerular Filtrat Rate mL/min > 60 Glucose Level 84 Calcium Level 8.9 Phosphorus Level 3.4 Magnesium Level 1.8 Past Medical History Medical History: other (Urinary tract infections chronic dysuria) Home Meds Active Scripts Hydrocodone/Acetaminophen ([place] 5-325 Tablet) 1 Each Tablet, 1 TAB PO Q6H PRN for PAIN, #7 TAB Prov:CARLOS JONES MD 02/18/19 Baclofen* (Baclofen*) 10 Mg Tablet, 10 MG PO TID, #10 TAB Prov:CARLOS JONES MD 02/18/19 Levofloxacin* (Levaquin*) 750 Mg Tablet, 750 MG PO DAILY for 5 Days, TAB Prov:CARLOS JONES MD 02/18/19 Reported Medications Carbamazepine* (Carbamazepine*) 100 Mg Tab.chew, 100 MG PO TID, #90 TAB.CHEW 02/21/19 Phenazopyridine Hcl* (Phenazopyridine Hcl*) 200 Mg Tablet, 200 MG PO DAILY, TAB 02/21/19 Tamsulosin Hcl* (Flomax*) 0.4 Mg Cap.er.24h, 0.8 MG PO HS, CAP 02/21/19 Ondansetron Hcl* (Zofran*) 4 Mg Tab, 4 MG PO NEEDED PRN for NAUSEA AND OR VOMITING, TAB 02/21/19 Medications Current Medications IV Flush (NS 3 ml) 3 ml PER PROTOCOL IV ; Start 02/21/19 at 17:00 Acetaminophen (Tylenol Tab) 650 mg Q6H PRN PO .PAIN 1-3 OR TEMP; Start 02/21/19 at 17:00 Heparin Sodium (Porcine) (Heparin (5000 Units/1ml)) 5,000 unit Q8 SC Last administered on 02/22/19at 21:23; Admin Dose 5,000 UNIT; Start 02/21/19 at 22:00; Status Hold Phenazopyridine HCl (Pyridium) 100 mg TID PO Last administered on 02/25/19at 09:16; Admin Dose 100 MG; Start 02/21/19 at 21:00 Tamsulosin HCl (Flomax) 0.4 mg HS PO Last administered on 02/24/19at 22:56; Admin Dose 0.4 MG; Start 02/21/19 at 21:00 Prochlorperazine (Compazine Inj) 5 mg Q6H PRN IV NAUSEA AND/OR VOMITING Last administered on 02/25/19at 07:46; Admin Dose 5 MG; Start 02/21/19 at 18:30 Carbamazepine (Tegretol) 100 mg TID PO Last administered on 02/25/19at 10:14; Admin Dose 100 MG; Start 02/21/19 at 21:00 Pantoprazole (Protonix Tab) 40 mg DAILY@06 PO Last administered on 02/25/19at 06:31; Admin Dose 40 MG; Start 02/22/19 at 09:30 Miscellaneous Information Patients own medicat... BID@ XX ; Start 02/22/19 at 16:00 Baclofen (Lioresal) 5 mg TID PO Last administered on 02/25/19 09:16; Admin Dose 5 MG; Start 02/23/19 at 13:00 Docusate Sodium (Colace) 100 mg BID PO Last administered on 02/25/19 09:16; Admin Dose 100 MG; Start 02/23/19 at 21:00 Sodium Chloride 1,000 ml @ 40 mls/hr Q24H IV Last administered on 02/24/19 21:02; Admin Dose 40 MLS/HR; Start 02/24/19 at 09:30 Ceftriaxone Sodium 50 ml @ 100 mls/hr Q24H IVPB Last administered on 02/24/19 22:55; Admin Dose 100 MLS/HR; Start 02/24/19 at 21:00 Buspirone HCl (Buspar) 5 mg BID PO Last administered on 02/25/19 09:16; Admin Dose 5 MG; Start 02/24/19 at 13:00 Duloxetine HCl (Cymbalta) 20 mg DAILY PO Last administered on 02/25/19 09:16; Admin Dose 20 MG; Start 02/24/19 at 13:00 Hydromorphone HCl (Dilaudid) 0.5 mg HS PRN IV PAIN Last administered on 02/25/19 08:26; Admin Dose 0.5 MG; Start 02/24/19 at 17:00 Lorazepam (Ativan) 0.5 mg Q6H PRN IV ANXIETY Last administered on 02/24/19 23:57; Admin Dose 0.5 MG; Start 02/24/19 at 17:00 Oxycodone HCl (Roxicodone) 10 mg Q4H PRN PO MODERATE PAIN LEVEL 4-6 Last administered on 02/25/19 09:16; Admin Dose 10 MG; Start 02/24/19 at 21:00 Allergies: Coded Allergies: NSAIDS (Non-Steroidal Anti-Inflamma (Verified Allergy, Unknown, 02/21/19) Past Surgical History Past Surgical Hx: other (Cannot obtain at this time patient is extremely emotional) Social History Smoking Status: Former smoker Drug Use: other (None) LEYLA CAMPOS Feb 25, 2019 11:26
[2019-02-25] MEDS ORDERED: PROCHLORPERAZINE 10 MG INJ IV PRN (12:30)
[2019-02-25] MEDS: SOD CHLORIDE 0.9% 1,000 ML IV SCH (12:42)
[2019-02-25] MEDS: SUCRALFATE (100 MG/ML) 10ML CUP PO SCH ×3 (14:11→21:16)
--- NOTE | 2019-02-25 14:52 | CONS ---
Assessment/Plan Assessment/Plan Hospital Course (Demo Recall) Pt had episodes of n/v/palpitations/epigastric pain, ts to tele, now is sleeping, no fevers Urine culture negative since admission Indwelling: Scott catheter Antimicrobials: Ceftriaxone Physical examination: Well-developed middle-aged white woman who is alert in no distress. Head atraumatic normocephalic sclera nonicteric neck is supple chest rise symmetrical breath sounds clear. Heart: S1-S2. Abdomen soft bowel sounds present. Extremities without cyanosis edema. Assessment: 1. Pelvic pain secondary to cystocele and urinary retention, status post cystoscopy/cystocele repair 02/23/19 2. Constipation 3. Recurrent UTI Plan: Pending GI and cardiology eval, dc abx, mancini cx prn Consultation Date/Type/Reason Admit Date/Time Feb 21, 2019 at 16:59 Initial Consult Date Type of Consult id Requesting Provider: CALEB ADAMS Date/Time of Note DATE: 02/25/19 TIME: 14:51 Exam/Review of Systems Exam Vitals Vital Signs Date Temp Pulse Resp B/P (MAP) Pulse Ox O2 O2 Flow FiO2 Time Delivery Rate 02/25/19 59 14:24 02/25/19 98.8 18 137/70 97 Room Air 14:13 (92) Intake and Output 02/24/19 02/24/19 02/25/19 1515:00 23:00 07:00 IntakeIntake Total 200 ml 600 ml 870 ml OutputOutput Total 1000 ml 1100 ml BalanceBalance 200 ml -400 ml -230 ml Results Result Diagram: 02/25/19 0739 02/25/19 0739 Results 24hrs Laboratory Tests Test 02/25/19 07:39 White Blood Count 4.6 L Red Blood Count 3.29 L Hemoglobin 10.5 L Hematocrit 30.7 L Mean Corpuscular Volume 93.3 Mean Corpuscular Hemoglobin 31.9 Mean Corpuscular Hemoglobin Concent 34.2 Red Cell Distribution Width 11.3 L Platelet Count 141 Mean Platelet Volume 10.9 H Immature Granulocytes % 0.200 Neutrophils % 62.7 Lymphocytes % 25.0 Monocytes % 8.8 Eosinophils % 2.6 Basophils % 0.7 Nucleated Red Blood Cells % 0.0 Immature Granulocytes # 0.010 Neutrophils # 2.9 Lymphocytes # 1.1 Monocytes # 0.4 Eosinophils # 0.1 Basophils # 0.0 Nucleated Red Blood Cells # 0.0 Sodium Level 141 Potassium Level 3.7 Chloride Level 106 Carbon Dioxide Level 25 Anion Gap 10 Blood Urea Nitrogen 8 Creatinine 0.65 Est Glomerular Filtrat Rate mL/min > 60 Glucose Level 84 Calcium Level 8.9 Phosphorus Level 3.4 Magnesium Level 1.8 Medications Medication Current Medications IV Flush (NS 3 ml) 3 ml PER PROTOCOL IV ; Start 02/21/19 at 17:00 Acetaminophen (Tylenol Tab) 650 mg Q6H PRN PO .PAIN 1-3 OR TEMP; Start 02/21/19 at 17:00 Heparin Sodium (Porcine) (Heparin (5000 Units/1ml)) 5,000 unit Q8 SC Last administered on 02/22/19 21:23; Admin Dose 5,000 UNIT; Start 02/21/19 at 22:00; Status Hold Phenazopyridine HCl (Pyridium) 100 mg TID PO Last administered on 02/25/19at 09: 16; Admin Dose 100 MG; Start 02/21/19 at 21:00 Tamsulosin HCl (Flomax) 0.4 mg HS PO Last administered on 02/24/19at 22:56; Admin Dose 0.4 MG; Start 02/21/19 at 21:00 Carbamazepine (Tegretol) 100 mg TID PO Last administered on 02/25/19at 10:14; Admin Dose 100 MG; Start 02/21/19 at 21:00 Miscellaneous Information Patients own medicat... BID@10,16 XX ; Start 02/22/19 at 16:00 Baclofen (Lioresal) 5 mg TID PO Last administered on 02/25/19at 09:16; Admin Dose 5 MG; Start 02/23/19 at 13:00 Docusate Sodium (Colace) 100 mg BID PO Last administered on 02/25/19at 09:16; Admin Dose 100 MG; Start 02/23/19 at 21:00 Ceftriaxone Sodium 50 ml @ 100 mls/hr Q24H IVPB Last administered on 02/24/19at 22:55; Admin Dose 100 MLS/HR; Start 02/24/19 at 21:00 Buspirone HCl (Buspar) 5 mg BID PO Last administered on 02/25/19at 09:16; Admin Dose 5 MG; Start 02/24/19 at 13:00; Status Hold Duloxetine HCl (Cymbalta) 20 mg DAILY PO Last administered on 02/25/19at 09:16; Admin Dose 20 MG; Start 02/24/19 at 13:00; Status Hold Hydromorphone HCl (Dilaudid) 0.5 mg HS PRN IV PAIN Last administered on 02/25/19at 08:26; Admin Dose 0.5 MG; Start 02/24/19 at 17:00 Lorazepam (Ativan) 0.5 mg Q6H PRN IV ANXIETY Last administered on 02/24/19at 23:57; Admin Dose 0.5 MG; Start 02/24/19 at 17:00 Oxycodone HCl (Roxicodone) 10 mg Q4H PRN PO MODERATE PAIN LEVEL 4-6 Last administered on 02/25/19at 09:16; Admin Dose 10 MG; Start 02/24/19 at 21:00 Sucralfate (Carafate Susp) 1 gm QID PO ; Start 02/25/19 at 13:00 Prochlorperazine (Compazine Inj) 5 mg Q6H PRN IV NAUSEA AND/OR VOMITING Last administered on 02/25/19at 12:41; Admin Dose 5 MG; Start 02/25/19 at 12:30 Sodium Chloride 1,000 ml @ 50 mls/hr Q20H IV Last administered on 02/25/19at 12:42; Admin Dose 50 MLS/HR; Start 02/25/19 at 12:30 Pantoprazole (Protonix Tab) 40 mg BID@0600,1800 PO ; Start 02/25/19 at 18:00 Scopolamine (Transderm-Scop) 1 patch Q72H TRANSDERM ; Start 02/25/19 at 15:30 MARITZA ANTHONY NP Feb 25, 2019 14:52
[2019-02-25] MEDS ORDERED: SCOPOLAMINE 1.5 MG PATCH TRANSDERM SCH (15:30)
--- NOTE | 2019-02-25 15:54 | PN ---
Date/Time of Note Date/Time of Note DATE: 02/25/19 TIME: 15:49 Objective Vitals Vital Signs Date Temp Pulse Resp B/P (MAP) Pulse Ox O2 O2 Flow FiO2 Time Delivery Rate 02/25/19 98.0 74 18 160/74 97 15:19 (102) 02/25/19 Room Air 14:13 Intake and Output 02/24/19 02/24/19 02/25/19 1515:00 23:00 07:00 IntakeIntake Total 200 ml 600 ml 870 ml OutputOutput Total 1000 ml 1100 ml BalanceBalance 200 ml -400 ml -230 ml Results Result Diagram: 02/25/19 0739 02/25/19 0739 Medications Medications Current Medications IV Flush (NS 3 ml) 3 ml PER PROTOCOL IV ; Start 02/21/19 at 17:00 Acetaminophen (Tylenol Tab) 650 mg Q6H PRN PO .PAIN 1-3 OR TEMP; Start 02/21/19 at 17:00 Heparin Sodium (Porcine) (Heparin (5000 Units/1ml)) 5,000 unit Q8 SC Last administered on 02/22/19at 21:23; Admin Dose 5,000 UNIT; Start 02/21/19 at 22:00; Status Hold Phenazopyridine HCl (Pyridium) 100 mg TID PO Last administered on 02/25/19at 09:16; Admin Dose 100 MG; Start 02/21/19 at 21:00 Tamsulosin HCl (Flomax) 0.4 mg HS PO Last administered on 02/24/19at 22:56; Admin Dose 0.4 MG; Start 02/21/19 at 21:00 Carbamazepine (Tegretol) 100 mg TID PO Last administered on 02/25/19at 10:14; Admin Dose 100 MG; Start 02/21/19 at 21:00 Miscellaneous Information Patients own medicat... BID@,16 XX ; Start 02/22/19 at 16:00 Baclofen (Lioresal) 5 mg TID PO Last administered on 02/25/19at 09:16; Admin Dose 5 MG; Start 02/23/19 at 13:00 Docusate Sodium (Colace) 100 mg BID PO Last administered on 02/25/19at 09:16; Admin Dose 100 MG; Start 02/23/19 at 21:00 Buspirone HCl (Buspar) 5 mg BID PO Last administered on 02/25/19 09:16; Admin Dose 5 MG; Start 02/24/19 at 13:00; Status Hold Duloxetine HCl (Cymbalta) 20 mg DAILY PO Last administered on 02/25/19 09:16; Admin Dose 20 MG; Start 02/24/19 at 13:00; Status Hold Hydromorphone HCl (Dilaudid) 0.5 mg HS PRN IV PAIN Last administered on 02/25/19 08:26; Admin Dose 0.5 MG; Start 02/24/19 at 17:00 Lorazepam (Ativan) 0.5 mg Q6H PRN IV ANXIETY Last administered on 02/24/19 23 :57; Admin Dose 0.5 MG; Start 02/24/19 at 17:00 Oxycodone HCl (Roxicodone) 10 mg Q4H PRN PO MODERATE PAIN LEVEL 4-6 Last administered on 02/25/19 09:16; Admin Dose 10 MG; Start 02/24/19 at 21:00 Sucralfate (Carafate Susp) 1 gm QID PO ; Start 02/25/19 at 13:00 Prochlorperazine (Compazine Inj) 5 mg Q6H PRN IV NAUSEA AND/OR VOMITING Last administered on 02/25/19 12:41; Admin Dose 5 MG; Start 02/25/19 at 12:30 Sodium Chloride 1,000 ml @ 50 mls/hr Q20H IV Last administered on 02/25/19 12:42; Admin Dose 50 MLS/HR; Start 02/25/19 at 12:30 Pantoprazole (Protonix Tab) 40 mg BID@0600,1800 PO ; Start 02/25/19 at 18:00 Scopolamine (Transderm-Scop) 1 patch Q72H TRANSDERM Last administered on 02/25 15:41; Admin Dose 1 PATCH; Start 02/25/19 at 15:30 VTE Prophylaxis Risk score (from Nsg)>0 risk: 2 SCD applied (from Nsg): Yes Lines/Catheters IV Catheter Type: Scott in Place: No Assessment/Plan Hospital Course Subjective Patient's pelvic pain is improving however patient is currently extremely nauseated with vomiting and headache. Patient also feels palpitations Objective Physical exam General: Patient is laying in bed and answers questions appropriately Mentation: Patient is alert and oriented 4, Head: Normocephalic atraumatic Eyes: EOMI, pupils reactive to light Neck: Supple, nontender, midline Respiratory: Clear to auscultation bilaterally Cardiovascular: regular rate, no obvious murmurs Gastrointestinal: Mild epigastric tenderness to palpation, bowel sounds heard. Neurological: Moves all extremities spontaneously Skin: No new skin lesions Assessment and plan Intractable nausea and vomiting -Continue Compazine as needed, add scopolamine patch due to intractable nausea and vomiting -New medications that were started yesterday included BuSpar and Cymbalta, will hold for now, infectious disease also stopped ceftriaxone, does not feel needs additional antibiotics. -GI consulted -Added Carafate -Lipase pending due to mild epigastric tenderness on exam Palpitations -Patient upgraded to telemetry -Questionable true palpitation, EKG within normal limits -Cardiology consulted -Echocardiogram ordered Acute on chronic dysuria with urinary retention -Patient's urologist on board, Dr. Ramirez -Per urology recommendations, will order MRI with and without contrast, MRI reviewed -Cystoscopy with cystocele repair done, vaginal packing removed, symptoms are moderately improving, awaiting urology recommendations for when to remove Scott catheter Major depressive disorder with rule out posttraumatic stress disorder -BuSpar and Cymbalta started per psychiatry but now held due to above nausea vomiting -Ativan as needed -Patient had a traumatic event during childhood -Patient has multiple bouts of anxiety attacks and mood disorders during this admission, on multiple attempts wants to leave AGAINST MEDICAL ADVICE but changes her mind, will need to treat anxiety attacks appropriately. Urinary tract infection, resolved -Likely secondary to patient's multiple urinary issues -Patient was on oral Levaquin, patient stated possible fatigue with cefepime so will change to IV ceftriaxone per infectious disease, infectious disease has now discontinue ceftriaxone, will monitor off antibiotics -Urology recommendations appreciated -Infectious disease consulted -mild IV hydration Dizziness -Improving - unlikely significance as patient does not complain about this issue currently however as patient's urinary issues are resolving patient's dizziness also seems to be resolving Blurry vision, intermittent for over 1 year -Very mild, likely sequelae to above factors including UTI and dizziness, however patient has also had mild vision issues for the past year and this is not a new finding per patient ever since patient had a bad seizure approximately 1 year ago -MRI head negative for acute issues -Patient states this only happens when she concentrates very hard prolonged periods of time, this may also be normal physiologic change however will monitor closely, -Neurology on board, saw patient, recommends outpatient follow-up with ophth almology, stated this is 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 CALEB ADAMS Feb 25, 2019 15:54
--- NOTE | 2019-02-25 16:42 | CONS ---
Assessment/Plan Assessment/Plan Assessment/Plan (Daily) Assessment: Intractable nausea vomiting Postsurgical versus cannabinoid hyperemesis Fatty liver Anemia Depression Marijuana user Plan: Stool for H. pylori Continue PPI and Carafate Continue scopolamine patch Start Reglan x 6 doses Monitor the need for EGD on Thursday Patient seen in collaboration with Dr. Weiner Consultation Date/Type/Reason Admit Date/Time Feb 21, 2019 at 16:59 Date of Consultation: Feb 25, 2019 Type of Consult GI Reason for Consultation Intractable nausea and vomiting Date/Time of Note DATE: 02/25/19 TIME: 16:34 Hx of Present Illness This is a 38-year-old female with a history of H. pylori and Noy-Sosa tear who developed postsurgical nausea and vomiting in the past 2 days. Patient admits to smoking marijuana regularly however denies nausea and vomiting in the past. Patient has a history of H. pylori in 2007 that was treated. 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 Patient was treated with Zofran, Reglan and Compazine for nausea. She was started on scopolamine patch and Carafate today. Patient states her symptoms improved with scopolamine patch. Currently patient denies any vomiting, hematemesis, abdominal pain, hematochezia or fever. Will order Reglan around-t he-clock for 6 doses. We will monitor the need for EGD tentatively from Thursday. Plan discussed with the patient. Patient is agreeable. Gastrointestinal: no complaints (See HPI) Past Medical History Depression, history of upper GI bleed Medical History: other (Urinary tract infections chronic dysuria) Home Meds Active Scripts Hydrocodone/Acetaminophen (Erin 5-325 Tablet) 1 Each Tablet, 1 TAB PO Q6H PRN for PAIN, #7 TAB Prov:CARLOS JONES MD 02/18/19 Baclofen* (Baclofen*) 10 Mg Tablet, 10 MG PO TID, #10 TAB Prov:CARLOS JONES MD 02/18/19 Levofloxacin* (Levaquin*) 750 Mg Tablet, 750 MG PO DAILY for 5 Days, TAB Prov:CARLOS JONES MD 02/18/19 Reported Medications Carbamazepine* (Carbamazepine*) 100 Mg Tab.chew, 100 MG PO TID, #90 TAB.CHEW 02/21/19 Phenazopyridine Hcl* (Phenazopyridine Hcl*) 200 Mg Tablet, 200 MG PO DAILY, TAB 02/21/19 Tamsulosin Hcl* (Flomax*) 0.4 Mg Cap.er.24h, 0.8 MG PO HS, CAP 02/21/19 Ondansetron Hcl* (Zofran*) 4 Mg Tab, 4 MG PO NEEDED PRN for NAUSEA AND OR VOMITING, TAB 02/21/19 Medications Current Medications IV Flush (NS 3 ml) 3 ml PER PROTOCOL IV ; Start 02/21/19 at 17:00 Acetaminophen (Tylenol Tab) 650 mg Q6H PRN PO .PAIN 1-3 OR TEMP; Start 02/21/19 at 17:00 Heparin Sodium (Porcine) (Heparin (5000 Units/1ml)) 5,000 unit Q8 SC Last administered on 02/22/19at 21:23; Admin Dose 5,000 UNIT; Start 02/21/19 at 22:00; Status Hold Phenazopyridine HCl (Pyridium) 100 mg TID PO Last administered on 02/25/19at 09:16; Admin Dose 100 MG; Start 02/21/19 at 21:00 Tamsulosin HCl (Flomax) 0.4 mg HS PO Last administered on 02/24/19at 22:56; Admin Dose 0.4 MG; Start 02/21/19 at 21:00 Carbamazepine (Tegretol) 100 mg TID PO Last administered on 02/25/19at 10:14; Admin Dose 100 MG; Start 02/21/19 at 21:00 Miscellaneous Information Patients own medicat... BID@,16 XX ; Start 02/22/19 at 16:00 Baclofen (Lioresal) 5 mg TID PO Last administered on 02/25/19at 09:16; Admin Dose 5 MG; Start 02/23/19 at 13:00 Docusate Sodium (Colace) 100 mg BID PO Last administered on 02/25/19 09:16; Admin Dose 100 MG; Start 02/23/19 at 21:00 Buspirone HCl (Buspar) 5 mg BID PO Last administered on 02/25/19at 09:16; Admin Dose 5 MG; Start 02/24/19 at 13:00; Status Hold Duloxetine HCl (Cymbalta) 20 mg DAILY PO Last administered on 6/21/19at 09:16; Admin Dose 20 MG; Start 02/24/19 at 13:00; Status Hold Hydromorphone HCl (Dilaudid) 0.5 mg HS PRN IV PAIN Last administered on 02/25/19at 08:26; Admin Dose 0.5 MG; Start 02/24/19 at 17:00 Lorazepam (Ativan) 0.5 mg Q6H PRN IV ANXIETY Last administered on 02/24/19at 23:57; Admin Dose 0.5 MG; Start 02/24/19 at 17:00 Oxycodone HCl (Roxicodone) 10 mg Q4H PRN PO MODERATE PAIN LEVEL 4-6 Last administered on 02/25/19at 09:16; Admin Dose 10 MG; Start 02/24/19 at 21:00 Sucralfate (Carafate Susp) 1 gm QID PO ; Start 02/25/19 at 13:00 Prochlorperazine (Compazine Inj) 5 mg Q6H PRN IV NAUSEA AND/OR VOMITING Last administered on 02/25/19at 12:41; Admin Dose 5 MG; Start 02/25/19 at 12:30 Sodium Chloride 1,000 ml @ 50 mls/hr Q20H IV Last administered on 02/25/19at 1 2:42; Admin Dose 50 MLS/HR; Start 02/25/19 at 12:30 Pantoprazole (Protonix Tab) 40 mg BID@0600,1800 PO ; Start 02/25/19 at 18:00 Scopolamine (Transderm-Scop) 1 patch Q72H TRANSDERM Last administered on 02/25/19at 15:41; Admin Dose 1 PATCH; Start 02/25/19 at 15:30 Allergies: Coded Allergies: NSAIDS (Non-Steroidal Anti-Inflamma (Verified Allergy, Unknown, 02/21/19) Past Surgical History Past Surgical Hx: other (Cannot obtain at this time patient is extremely emotional) Social History Smoking Status: Former smoker Drug Use: other (None) Exam/Review of Systems Exam Vitals Vital Signs Date Temp Pulse Resp B/P (MAP) Pulse Ox O2 O2 Flow FiO2 Time Delivery Rate 02/25/19 98.0 74 18 160/74 97 15:19 (102) 02/25/19 Room Air 14:13 Intake and Output 602/24/19 02/25/19 1515:00 23:00 07:00 IntakeIntake Total 200 ml 600 ml 870 ml OutputOutput Total 1000 ml 1100 ml BalanceBalance 200 ml -400 ml -230 ml Exam PHYSICAL EXAMINATION: GENERAL: Well developed, well nourished, alert & oriented x 3, in no acute distress SKIN: No lesions, no stigmata chronic liver disease, no evidence of bleeding diathesis LYMPHATIC: No palpable lymphadenopathy. HEAD: Normocephalic, atraumatic, no tenderness. EYES: Pupils equal reactive to light and accommodation, full extraocular movements, sclera clear, non-icteric, no discharge. EARS/NOSE AND THROAT: Ears normal, nose normal, oropharynx normal, oral membranes well hydrated without lesions. NECK: Supple, no masses, thyroid normal, JVP within normal limits, carotids normal without bruits. CHEST: Inspection within normal limits. CARDIOVASCULAR: Heart: Regular rate and rhythm, no murmurs, gallops or rubs. Per ipheral pulses present within normal limits, no cyanosis, clubbing or edemas. No pulsatile abdominal mass RESPIRATORY: Lungs clear to auscultation and percussion, no wheezing, no rubs GASTROINTESTINAL AND LIVER: Abdomen: Soft, epigastric tenderness, non-distended, no hernias, no masses, no organomegaly, no ascites, no guarding, no rebound tenderness, normoactive bowel sounds. Rectal: Deferred. GENITOURINARY: Male genitalia within normal limits. EXTREMITIES: No cyanosis, clubbing or edema. Results Result Diagram: 02/25/19 0739 02/25/19 0739 Results 24hrs Laboratory Tests Test 02/25/19 07:39 White Blood Count 4.6 L Red Blood Count 3.29 L Hemoglobin 10.5 L Hematocrit 30.7 L Mean Corpuscular Volume 93.3 Mean Corpuscular Hemoglobin 31.9 Mean Corpuscular Hemoglobin Concent 34.2 Red Cell Distribution Width 11.3 L Platelet Count 141 Mean Platelet Volume 10.9 H Immature Granulocytes % 0.200 Neutrophils % 62.7 Lymphocytes % 25.0 Monocytes % 8.8 Eosinophils % 2.6 Basophils % 0.7 Nucleated Red Blood Cells % 0.0 Immature Granulocytes # 0.010 Neutrophils # 2.9 Lymphocytes # 1.1 Monocytes # 0.4 Eosinophils # 0.1 Basophils # 0.0 Nucleated Red Blood Cells # 0.0 Sodium Level 141 Potassium Level 3.7 Chloride Level 106 Carbon Dioxide Level 25 Anion Gap 10 Blood Urea Nitrogen 8 Creatinine 0.65 Est Glomerular Filtrat Rate mL/min > 60 Glucose Level 84 Calcium Level 8.9 Phosphorus Level 3.4 Magnesium Level 1.8 Medications Medication Current Medications IV Flush (NS 3 ml) 3 ml PER PROTOCOL IV ; Start 02/21/19 at 17:00 Acetaminophen (Tylenol Tab) 650 mg Q6H PRN PO .PAIN 1-3 OR TEMP; Start 02/21/19 at 17:00 Heparin Sodium (Porcine) (Heparin (5000 Units/1ml)) 5,000 unit Q8 SC Last administered on 02/22/19 21:23; Admin Dose 5,000 UNIT; Start 02/21/19 at 22:00; Status Hold Phenazopyridine HCl (Pyridium) 100 mg TID PO Last administered on 02/25/19 09:16; Admin Dose 100 MG; Start 02/21/19 at 21:00 Tamsulosin HCl (Flomax) 0.4 mg HS PO Last administered on 02/24/19at 22:56; Admin Dose 0.4 MG; Start 02/21/19 at 21:00 Carbamazepine (Tegretol) 100 mg TID PO Last administered on 02/25/19at 10:14; Admin Dose 100 MG; Start 02/21/19 at 21:00 Miscellaneous Information Patients own medicat... BID@10,16 XX ; Start 02/22/19 at 16:00 Baclofen (Lioresal) 5 mg TID PO Last administered on 02/25/19 09:16; Admin Dose 5 MG; Start 02/23/19 at 13:00 Docusate Sodium (Colace) 100 mg BID PO Last administered on 02/25/19 09:16; Admin Dose 100 MG; Start 02/23/19 at 21:00 Buspirone HCl (Buspar) 5 mg BID PO Last administered on 02/25/19 09:16; Admin Dose 5 MG; Start 02/24/19 at 13:00; Status Hold Duloxetine HCl (Cymbalta) 20 mg DAILY PO Last administered on 02/25/19 09:16; Admin Dose 20 MG; Start 02/24/19 at 13:00; Status Hold Hydromorphone HCl (Dilaudid) 0.5 mg HS PRN IV PAIN Last administered on 02/25/19at 08:26; Admin Dose 0.5 MG; Start 02/24/19 at 17:00 Lorazepam (Ativan) 0.5 mg Q6H PRN IV ANXIETY Last administered on 02/24/19at 2 3:57; Admin Dose 0.5 MG; Start 02/24/19 at 17:00 Oxycodone HCl (Roxicodone) 10 mg Q4H PRN PO MODERATE PAIN LEVEL 4-6 Last administered on 02/25/19at 09:16; Admin Dose 10 MG; Start 02/24/19 at 21:00 Sucralfate (Carafate Susp) 1 gm QID PO ; Start 02/25/19 at 13:00 Prochlorperazine (Compazine Inj) 5 mg Q6H PRN IV NAUSEA AND/OR VOMITING Last administered on 02/25/19at 12:41; Admin Dose 5 MG; Start 02/25/19 at 12:30 Sodium Chloride 1,000 ml @ 50 mls/hr Q20H IV Last administered on 02/25/19at 12:42; Admin Dose 50 MLS/HR; Start 02/25/19 at 12:30 Pantoprazole (Protonix Tab) 40 mg BID@0600,1800 PO ; Start 02/25/19 at 18:00 Scopolamine (Transderm-Scop) 1 patch Q72H TRANSDERM Last administered on 02/06 09/25at 15:41; Admin Dose 1 PATCH; Start 02/25/19 at 15:30 LAKEISHA DOMINGUEZ NP Feb 25, 2019 16:42
[2019-02-25] MEDS: METOCLOPRAMIDE 10 MG INJ IV SCH ×2 (17:55→23:47)
--- NOTE | 2019-02-25 18:23 | CONS ---
Assessment/Plan Assessment/Plan Hospital Course (Demo Recall) palpitations in the setting of nausea EKG unremarkable at this time no clear evidence of arrhythmia recommend telemetry x 24 hrs please call cardiology to follow up if any arrhythmias noted Consultation Date/Type/Reason Admit Date/Time Feb 21, 2019 at 16:59 Type of Consult Cardiology Date/Time of Note DATE: 02/25/19 TIME: 18:21 Hx of Present Illness pt admitted for urological cause developed nausea and palpitations. Noted to have irregular heart beat on exam + nausea + palpitations denies CP denies SOB Past Medical History Home Meds Active Scripts Hydrocodone/Acetaminophen (Godfrey 5-325 Tablet) 1 Each Tablet, 1 TAB PO Q6H PRN for PAIN, #7 TAB Prov:CARLOS JONES MD 02/18/19 Baclofen* (Baclofen*) 10 Mg Tablet, 10 MG PO TID, #10 TAB Prov:CARLOS JONES MD 02/18/19 Levofloxacin* (Levaquin*) 750 Mg Tablet, 750 MG PO DAILY for 5 Days, TAB Prov:CARLOS JONES MD 02/18/19 Reported Medications Carbamazepine* (Carbamazepine*) 100 Mg Tab.chew, 100 MG PO TID, #90 TAB.CHEW 02/21/19 Phenazopyridine Hcl* (Phenazopyridine Hcl*) 200 Mg Tablet, 200 MG PO DAILY, TAB 02/21/19 Tamsulosin Hcl* (Flomax*) 0.4 Mg Cap.er.24h, 0.8 MG PO HS, CAP 02/21/19 Ondansetron Hcl* (Zofran*) 4 Mg Tab, 4 MG PO NEEDED PRN for NAUSEA AND OR VOMITING, TAB 02/21/19 Medications Current Medications IV Flush (NS 3 ml) 3 ml PER PROTOCOL IV ; Start 02/21/19 at 17:00 Acetaminophen (Tylenol Tab) 650 mg Q6H PRN PO .PAIN 1-3 OR TEMP; Start 02/21/19 at 17:00 Heparin Sodium (Porcine) (Heparin (5000 Units/1ml)) 5,000 unit Q8 SC Last administered on 02/22/19at 21:23; Admin Dose 5,000 UNIT; Start 02/21/19 at 22:00; Status Hold Phenazopyridine HCl (Pyridium) 100 mg TID PO Last administered on 02/25/19 16:42; Admin Dose 100 MG; Start 02/21/19 at 21:00 Tamsulosin HCl (Flomax) 0.4 mg HS PO Last administered on 02/24/19 22:56; Admin Dose 0.4 MG; Start 02/21/19 at 21:00 Carbamazepine (Tegretol) 100 mg TID PO Last administered on 02/25/19 10:14; Admin Dose 100 MG; Start 02/21/19 at 21:00 Miscellaneous Information Patients own medicat... BID@10,16 XX ; Start 02/22/19 at 16:00 Baclofen (Lioresal) 5 mg TID PO Last administered on 02/25/19 16:36; Admin Dose 5 MG; Start 02/23/19 at 13:00 Docusate Sodium (Colace) 100 mg BID PO Last administered on 02/25/19 09:16; Admin Dose 100 MG; Start 02/23/19 at 21:00 Buspirone HCl (Buspar) 5 mg BID PO Last administered on 02/25/19 09:16; Admin Dose 5 MG; Start 02/24/19 at 13:00; Status Hold Duloxetine HCl (Cymbalta) 20 mg DAILY PO Last administered on 02/25/19 09:16; Admin Dose 20 MG; Start 02/24/19 at 13:00; Status Hold Hydromorphone HCl (Dilaudid) 0.5 mg HS PRN IV PAIN Last administered on 02/25/19 08:26; Admin Dose 0.5 MG; Start 02/24/19 at 17:00 Lorazepam (Ativan) 0.5 mg Q6H PRN IV ANXIETY Last administered on 02/24/19 23:57; Admin Dose 0.5 MG; Start 02/24/19 at 17:00 Oxycodone HCl (Roxicodone) 10 mg Q4H PRN PO MODERATE PAIN LEVEL 4-6 Last administered on 02/25/19 17:56; Admin Dose 10 MG; Start 02/24/19 at 21:00 Sucralfate (Carafate Susp) 1 gm QID PO Last administered on 02/25/19 16:36; Admin Dose 1 GM; Start 02/25/19 at 13:00 Prochlorperazine (Compazine Inj) 5 mg Q6H PRN IV NAUSEA AND/OR VOMITING Last administered on 02/25/19at 12:41; Admin Dose 5 MG; Start 02/25/19 at 12:30 Sodium Chloride 1,000 ml @ 50 mls/hr Q20H IV Last administered on 02/25/19 12:42; Admin Dose 50 MLS/HR; Start 02/25/19 at 12:30 Pantoprazole (Protonix Tab) 40 mg BID@0600,1800 PO Last administered on 02/25/19at 17:55; Admin Dose 40 MG; Start 02/25/19 at 18:00 Scopolamine (Transderm-Scop) 1 patch Q72H TRANSDERM Last administered on 15:41; Admin Dose 1 PATCH; Start 02/25/19 at 15:30 Metoclopramide HCl (Reglan) 10 mg Q6 IV Last administered on 02/25/19at 17:55; Admin Dose 10 MG; Start 02/25/19 at 18:00; Stop 02/27/19 at 00:01 Allergies: Coded Allergies: NSAIDS (Non-Steroidal Anti-Inflamma (Verified Allergy, Unknown, 02/21/19) Past Surgical History Past Surgical Hx: other (Cannot obtain at this time patient is extremely emotional) Social History Smoking Status: Former smoker Drug Use: other (None) Exam/Review of Systems Vital Signs Vitals Vital Signs Date Temp Pulse Resp B/P (MAP) Pulse Ox O2 O2 Flow FiO2 Time Delivery Rate 02/25/19 114/56 17:28 (75) 02/25/19 71 16:36 02/25/19 98.0 18 97 15:19 02/25/19 Room Air 14:13 Intake and Output 02/24/19 02/24/19 02/25/19 1515:00 23:00 07:00 IntakeIntake Total 200 ml 600 ml 870 ml OutputOutput Total 1000 ml 1100 ml BalanceBalance 200 ml -400 ml -230 ml Labs Result Diagram: 02/25/19 0739 02/25/19 0739 Results 24hrs Laboratory Tests Test 02/25/19 07:39 02/25/19 16:03 White Blood Count 4.6 L Red Blood Count 3.29 L Hemoglobin 10.5 L Hematocrit 30.7 L Mean Corpuscular Volume 93.3 Mean Corpuscular Hemoglobin 31.9 Mean Corpuscular Hemoglobin Concent 34.2 Red Cell Distribution Width 11.3 L Platelet Count 141 Mean Platelet Volume 10.9 H Immature Granulocytes % 0.200 Neutrophils % 62.7 Lymphocytes % 25.0 Monocytes % 8.8 Eosinophils % 2.6 Basophils % 0.7 Nucleated Red Blood Cells % 0.0 Immature Granulocytes # 0.010 Neutrophils # 2.9 Lymphocytes # 1.1 Monocytes # 0.4 Eosinophils # 0.1 Basophils # 0.0 Nucleated Red Blood Cells # 0.0 Sodium Level 141 Potassium Level 3.7 Chloride Level 106 Carbon Dioxide Level 25 Anion Gap 10 Blood Urea Nitrogen 8 Creatinine 0.65 Est Glomerular Filtrat Rate mL/min > 60 Glucose Level 84 Calcium Level 8.9 Phosphorus Level 3.4 Magnesium Level 1.8 Lipase 28 Medications Medications Current Medications IV Flush (NS 3 ml) 3 ml PER PROTOCOL IV ; Start 02/21/19 at 17:00 Acetaminophen (Tylenol Tab) 650 mg Q6H PRN PO .PAIN 1-3 OR TEMP; Start 02/21/19 at 17:00 Heparin Sodium (Porcine) (Heparin (5000 Units/1ml)) 5,000 unit Q8 SC Last administered on 02/22/19at 21:23; Admin Dose 5,000 UNIT; Start 02/21/19 at 22:00; Status Hold Phenazopyridine HCl (Pyridium) 100 mg TID PO Last administered on 02/25/19at 16:42; Admin Dose 100 MG; Start 02/21/19 at 21:00 Tamsulosin HCl (Flomax) 0.4 mg HS PO Last administered on 02/24/19at 22:56; Admin Dose 0.4 MG; Start 02/21/19 at 21:00 Carbamazepine (Tegretol) 100 mg TID PO Last administered on 02/25/19at 10:14; Admin Dose 100 MG; Start 02/21/19 at 21:00 Miscellaneous Information Patients own medicat... BID@ XX ; Start 02/22/19 at 16:00 Baclofen (Lioresal) 5 mg TID PO Last administered on 02/25/19at 16:36; Admin Dose 5 MG; Start 02/23/19 at 13:00 Docusate Sodium (Colace) 100 mg BID PO Last administered on 02/25/19 09:16; Admin Dose 100 MG; Start 02/23/19 at 21:00 Buspirone HCl (Buspar) 5 mg BID PO Last administered on 02/25/19 09:16; Admin Dose 5 MG; Start 02/24/19 at 13:00; Status Hold Duloxetine HCl (Cymbalta) 20 mg DAILY PO Last administered on 02/25/19 09:16; Admin Dose 20 MG; Start 02/24/19 at 13:00; Status Hold Hydromorphone HCl (Dilaudid) 0.5 mg HS PRN IV PAIN Last administered on 02/25/19 08:26; Admin Dose 0.5 MG; Start 02/24/19 at 17:00 Lorazepam (Ativan) 0.5 mg Q6H PRN IV ANXIETY Last administered on 02/24/19 23 :57; Admin Dose 0.5 MG; Start 02/24/19 at 17:00 Oxycodone HCl (Roxicodone) 10 mg Q4H PRN PO MODERATE PAIN LEVEL 4-6 Last administered on 02/25/19 17:56; Admin Dose 10 MG; Start 02/24/19 at 21:00 Sucralfate (Carafate Susp) 1 gm QID PO Last administered on 02/25/19 16:36; Admin Dose 1 GM; Start 02/25/19 at 13:00 Prochlorperazine (Compazine Inj) 5 mg Q6H PRN IV NAUSEA AND/OR VOMITING Last administered on 02/25/19 12:41; Admin Dose 5 MG; Start 02/25/19 at 12:30 Sodium Chloride 1,000 ml @ 50 mls/hr Q20H IV Last administered on 02/25/19 12:42; Admin Dose 50 MLS/HR; Start 02/25/19 at 12:30 Pantoprazole (Protonix Tab) 40 mg BID@0600,1800 PO Last administered on 02/25/19 17:55; Admin Dose 40 MG; Start 02/25/19 at 18:00 Scopolamine (Transderm-Scop) 1 patch Q72H TRANSDERM Last administered on 02/25/19 15:41; Admin Dose 1 PATCH; Start 02/25/19 at 15:30 Metoclopramide HCl (Reglan) 10 mg Q6 IV Last administered on 02/25/19at 17:55; Admin Dose 10 MG; Start 02/25/19 at 18:00; Stop 02/27/19 at 00:01 DENI RIGGS MD Feb 25, 2019 18:23
[2019-02-25] MEDS: TAMSULOSIN (SR) 0.4 MG CAP PO SCH (21:17)
[2019-02-25] MEDS: LORAZEPAM 2 MG INJ IV PRN (23:54)
[2019-02-26] VITALS (13 sets, daily range): BP systolic 104–132; BP diastolic 52–75; PULSE 56–152; RESP 18–20
[2019-02-26] MEDS: PROCHLORPERAZINE 10 MG INJ IV PRN (04:23)
[2019-02-26] MEDS: oxyCODONE 5 MG TAB PO PRN ×3 (04:30→14:31)
[2019-02-26] MEDS: METOCLOPRAMIDE 10 MG INJ IV SCH ×3 (06:10→18:30)
[2019-02-26] MEDS: PANTOPRAZOLE (EC) 40 MG TAB PO SCH ×2 (06:11→18:30)
[2019-02-26] MEDS: SOD CHLORIDE 0.9% 1,000 ML IV SCH (08:52)
[2019-02-26] MEDS: BACLOFEN 10 MG TAB PO SCH ×3 (08:53→20:27)
[2019-02-26] MEDS: CARBAMAZEPINE 200 MG TAB PO SCH ×3 (08:53→20:27)
[2019-02-26] MEDS: DOCUSATE SODIUM 100 MG CAP PO SCH ×2 (08:53→20:27)
[2019-02-26] MEDS: PHENAZOPYRIDINE 100 MG TAB PO SCH ×3 (08:53→20:27)
[2019-02-26] MEDS: SUCRALFATE (100 MG/ML) 10ML CUP PO SCH ×4 (08:53→20:27)
--- NOTE | 2019-02-26 09:35 | CONS ---
Assessment/Plan Assessment/Plan Assessment/Plan (Daily) palpitations EKG unremarkable at this time no clear evidence of arrhythmia please call cardiology to follow up if any arrhythmias noted Consultation Date/Type/Reason Admit Date/Time Feb 21, 2019 at 16:59 Initial Consult Date 02/25/19 Type of Consult Cardiology Requesting Provider: CALEB ADAMS Date/Time of Note DATE: 02/26/19 TIME: 09:34 24 HR Interval Summary Free Text/Dictation the patinet wiht palpitaions this am Exam/Review of Systems Vital Signs Vitals Vital Signs Date Temp Pulse Resp B/P (MAP) Pulse Ox O2 O2 Flow FiO2 Time Delivery Rate 02/26/19 98.0 74 20 104/63 97 Room Air 08:59 (77) Intake and Output 02/25/19 02/25/19 02/26/19 1515:00 23:00 07:00 IntakeIntake Total 680 ml 1350 ml 400 ml OutputOutput Total 300 ml 200 ml 1800 ml BalanceBalance 380 ml 1150 ml -1400 ml Labs Result Diagram: 02/26/19 0502/26/19 0527 Results 24hrs Laboratory Tests Test 02/25/19 16:03 02/26/19 05:27 Lipase 28 White Blood Count 4.8 Red Blood Count 3.20 L Hemoglobin 10.2 L Hematocrit 29.7 L Mean Corpuscular Volume 92.8 Mean Corpuscular Hemoglobin 31.9 Mean Corpuscular Hemoglobin Concent 34.3 Red Cell Distribution Width 11.4 L Platelet Count 147 Mean Platelet Volume 10.9 H Immature Granulocytes % 0.200 Neutrophils % 57.3 Lymphocytes % 29.8 Monocytes % 9.0 Eosinophils % 3.1 Basophils % 0.6 Nucleated Red Blood Cells % 0.0 Immature Granulocytes # 0.010 Neutrophils # 2.7 Lymphocytes # 1.4 Monocytes # 0.4 Eosinophils # 0.2 Basophils # 0.0 Nucleated Red Blood Cells # 0.0 Sodium Level 141 Potassium Level 3.7 Chloride Level 105 Carbon Dioxide Level 25 Anion Gap 11 Blood Urea Nitrogen 10 Creatinine 0.80 Est Glomerular Filtrat Rate mL/min > 60 Glucose Level 89 Calcium Level 8.8 Phosphorus Level 3.5 Magnesium Level 1.7 Medications Medications Current Medications IV Flush (NS 3 ml) 3 ml PER PROTOCOL IV ; Start 02/21/19 at 17:00 Acetaminophen (Tylenol Tab) 650 mg Q6H PRN PO .PAIN 1-3 OR TEMP; Start 02/21/19 at 17:00 Heparin Sodium (Porcine) (Heparin (5000 Units/1ml)) 5,000 unit Q8 SC Last administered on 02/22/19 21:23; Admin Dose 5,000 UNIT; Start 02/21/19 at 22:00; Status Hold Phenazopyridine HCl (Pyridium) 100 mg TID PO Last administered on 02/26/19 08:53; Admin Dose 100 MG; Start 02/21/19 at 21:00 Tamsulosin HCl (Flomax) 0.4 mg HS PO Last administered on 02/25/19 21:17; Admin Dose 0.4 MG; Start 02/21/19 at 21:00 Carbamazepine (Tegretol) 100 mg TID PO Last administered on 02/26/19 08:53; Admin Dose 100 MG; Start 02/21/19 at 21:00 Miscellaneous Information Patients own medicat... BID@10,16 XX ; Start 02/22/19 at 16:00 Baclofen (Lioresal) 5 mg TID PO Last administered on 02/26/19 08:53; Admin Dose 5 MG; Start 02/23/19 at 13:00 Docusate Sodium (Colace) 100 mg BID PO Last administered on 02/26/19 08:53; Admin Dose 100 MG; Start 02/23/19 at 21:00 Buspirone HCl (Buspar) 5 mg BID PO Last administered on 02/25/19 09:16; Admin Dose 5 MG; Start 02/24/19 at 13:00; Status Hold Duloxetine HCl (Cymbalta) 20 mg DAILY PO Last administered on 02/25/19 09:16; Admin Dose 20 MG; Start 02/24/19 at 13:00; Status Hold Hydromorphone HCl (Dilaudid) 0.5 mg HS PRN IV PAIN Last administered on 02/25/19 20:38; Admin Dose 0.5 MG; Start 02/24/19 at 17:00 Lorazepam (Ativan) 0.5 mg Q6H PRN IV ANXIETY Last administered on 02/25/19 23:54; Admin Dose 0.5 MG; Start 02/24/19 at 17:00 Oxycodone HCl (Roxicodone) 10 mg Q4H PRN PO MODERATE PAIN LEVEL 4-6 Last administered on 02/26/19 08:58; Admin Dose 10 MG; Start 02/24/19 at 21:00 Sucralfate (Carafate Susp) 1 gm QID PO Last administered on 02/26/19 08:53; Admin Dose 1 GM; Start 02/25/19 at 13:00 Prochlorperazine (Compazine Inj) 5 mg Q6H PRN IV NAUSEA AND/OR VOMITING Last administered on 02/26/19 04:23; Admin Dose 5 MG; Start 02/25/19 at 12:30 Sodium Chloride 1,000 ml @ 50 mls/hr Q20H IV Last administered on 02/26/19 08:52; Admin Dose 50 MLS/HR; Start 02/25/19 at 12:30 Pantoprazole (Protonix Tab) 40 mg BID@0600,1800 PO Last administered on 02/26/19 06:11; Admin Dose 40 MG; Start 02/25/19 at 18:00 Scopolamine (Transderm-Scop) 1 patch Q72H TRANSDERM Last administered on 02/25/19at 15:41; Admin Dose 1 PATCH; Start 02/25/19 at 15:30 Metoclopramide HCl (Reglan) 10 mg Q6 IV Last administered on 02/26/19 06:10; Admin Dose 10 MG; Start 02/25/19 at 18:00; Stop 02/27/19 at 00:01 MAICOL MEJIA MD Feb 26, 2019 09:35
--- NOTE | 2019-02-26 10:21 | CONS ---
Assessment/Plan Assessment/Plan Assessment/Plan (Daily) POD 3 s/p cystocele repair. Pt with Scott catheter in place. Pt calm, pain and nausea much improved. Vitals stable. PLAN: Per Dr. Ramirez, plan to perform voiding trial. If pt passes voiding trial, she can be discharged home without catheter. If she fails voiding trial, replace Scott and pt can be discharged home with catheter. Consultation Date/Type/Reason Admit Date/Time Feb 21, 2019 at 16:59 Initial Consult Date 02/25/19 Type of Consult Urology Requesting Provider: CALEB ADAMS Date/Time of Note DATE: 02/26/19 TIME: 10:12 24 HR Interval Summary Free Text/Dictation Post-op day 3 s/p cystocele repair. Currently pain and nausea much improved. Pt wants to go home. She still has Scott catheter in place. Exam/Review of Systems Exam Vitals Vital Signs Date Temp Pulse Resp B/P (MAP) Pulse Ox O2 O2 Flow FiO2 Time Delivery Rate 02/26/19 98.0 74 20 104/63 97 Room Air 08:59 (77) Intake and Output 02/25/19 02/25/19 02/26/19 1515:00 23:00 07:00 IntakeIntake Total 680 ml 1350 ml 400 ml OutputOutput Total 300 ml 200 ml 1800 ml BalanceBalance 380 ml 1150 ml -1400 ml Results Result Diagram: 02/26/19 0527 02/26/19 0527 Results 24hrs Laboratory Tests Test 02/25/19 16:03 02/26/19 05:27 Lipase 28 White Blood Count 4.8 Red Blood Count 3.20 L Hemoglobin 10.2 L Hematocrit 29.7 L Mean Corpuscular Volume 92.8 Mean Corpuscular Hemoglobin 31.9 Mean Corpuscular Hemoglobin Concent 34.3 Red Cell Distribution Width 11.4 L Platelet Count 147 Mean Platelet Volume 10.9 H Immature Granulocytes % 0.200 Neutrophils % 57.3 Lymphocytes % 29.8 Monocytes % 9.0 Eosinophils % 3.1 Basophils % 0.6 Nucleated Red Blood Cells % 0.0 Immature Granulocytes # 0.010 Neutrophils # 2.7 Lymphocytes # 1.4 Monocytes # 0.4 Eosinophils # 0.2 Basophils # 0.0 Nucleated Red Blood Cells # 0.0 Sodium Level 141 Potassium Level 3.7 Chloride Level 105 Carbon Dioxide Level 25 Anion Gap 11 Blood Urea Nitrogen 10 Creatinine 0.80 Est Glomerular Filtrat Rate mL/min > 60 Glucose Level 89 Calcium Level 8.8 Phosphorus Level 3.5 Magnesium Level 1.7 Medications Medication Current Medications IV Flush (NS 3 ml) 3 ml PER PROTOCOL IV ; Start 02/21/19 at 17:00 Acetaminophen (Tylenol Tab) 650 mg Q6H PRN PO .PAIN 1-3 OR TEMP; Start 02/21/19 at 17:00 Heparin Sodium (Porcine) (Heparin (5000 Units/1ml)) 5,000 unit Q8 SC Last administered on 02/22/19 21:23; Admin Dose 5,000 UNIT; Start 02/21/19 at 22:00; Status Hold Phenazopyridine HCl (Pyridium) 100 mg TID PO Last administered on 02/26/19 08:53; Admin Dose 100 MG; Start 02/21/19 at 21:00 Tamsulosin HCl (Flomax) 0.4 mg HS PO Last administered on 02/25/19 21:17; Admin Dose 0.4 MG; Start 02/21/19 at 21:00 Carbamazepine (Tegretol) 100 mg TID PO Last administered on 02/26/19 08:53; Admin Dose 100 MG; Start 02/21/19 at 21:00 Miscellaneous Information Patients own medicat... BID@10,16 XX ; Start 02/22/19 at 16:00 Baclofen (Lioresal) 5 mg TID PO Last administered on 02/26/19 08:53; Admin Dose 5 MG; Start 02/23/19 at 13:00 Docusate Sodium (Colace) 100 mg BID PO Last administered on 02/26/19 08:53; Admin Dose 100 MG; Start 02/23/19 at 21:00 Buspirone HCl (Buspar) 5 mg BID PO Last administered on 02/25/19 09:16; Admin Dose 5 MG; Start 02/24/19 at 13:00; Status Hold Duloxetine HCl (Cymbalta) 20 mg DAILY PO Last administered on 02/25/19 09:16; Admin Dose 20 MG; Start 02/24/19 at 13:00; Status Hold Hydromorphone HCl (Dilaudid) 0.5 mg HS PRN IV PAIN Last administered on 02/25/19 20:38; Admin Dose 0.5 MG; Start 02/24/19 at 17:00 Lorazepam (Ativan) 0.5 mg Q6H PRN IV ANXIETY Last administered on 02/25/19 23:54; Admin Dose 0.5 MG; Start 02/24/19 at 17:00 Oxycodone HCl (Roxicodone) 10 mg Q4H PRN PO MODERATE PAIN LEVEL 4-6 Last administered on 02/26/19 08:58; Admin Dose 10 MG; Start 02/24/19 at 21:00 Sucralfate (Carafate Susp) 1 gm QID PO Last administered on 02/26/19 08:53; Admin Dose 1 GM; Start 02/25/19 at 13:00 Prochlorperazine (Compazine Inj) 5 mg Q6H PRN IV NAUSEA AND/OR VOMITING Last administered on 02/26/19 04:23; Admin Dose 5 MG; Start 02/25/19 at 12:30 Sodium Chloride 1,000 ml @ 50 mls/hr Q20H IV Last administered on 02/26/19 08:52; Admin Dose 50 MLS/HR; Start 02/25/19 at 12:30 Pantoprazole (Protonix Tab) 40 mg BID@0600,1800 PO Last administered on 02/26/19 06:11; Admin Dose 40 MG; Start 02/25/19 at 18:00 Scopolamine (Transderm-Scop) 1 patch Q72H TRANSDERM Last administered on at 15:41; Admin Dose 1 PATCH; Start 02/25/19 at 15:30 Metoclopramide HCl (Reglan) 10 mg Q6 IV Last administered on 02/26/19 06:10; Admin Dose 10 MG; Start 02/25/19 at 18:00; Stop 02/27/19 at 00:01 EVETTE VORA Feb 26, 2019 10:21
--- NOTE | 2019-02-26 10:58 | PN ---
Date/Time of Note Date/Time of Note DATE: 02/26/19 TIME: 10:57 Assessment/Plan VTE Prophylaxis Risk score (from Nsg)>0 risk: 2 SCD applied (from Nsg): Yes Pharmacological prophylaxis: other (scds) Lines/Catheters IV Catheter Type (from Nrsg): Mid Line Urinary Cath still in place: Yes Reason Cath still needed: other (indicate) (order in place to d/c today) Assessment/Plan Hospital Course Assessment: Intractable nausea vomiting Postsurgical versus cannabinoid hyperemesis vs side effects from opioids 02/24/19- s/p Cystocele repair. Cystoscopy. Fatty liver Anemia Depression Marijuana user Urine toxicology screening -Positive for opioids/benzodiazepines/cannabinoids Plan: Stool for H. pylori- pending Continue PPI and Carafate Continue scopolamine patch Reglan x 6 doses Monitor the need for EGD on Thursday Patient seen in collaboration with Dr. Weiner Subjective: Course reviewed with nursing staff Patient interviewed and examined All labs, imaging and other results reviewed The patient currently sleeping, will allow to rest No over night events noted, Spoke to staff who states patient's nausea vomiting has improved no episodes of vomiting today patient continues to complain of nausea however feels better with current regimen of Reglan and Compazine. Will continue close observation PHYSICAL EXAMINATION: GENERAL: Well developed, well nourished, alert & oriented x 3, in no acute distress HEAD: Normocephalic, atraumatic, no tenderness. EYES: Pupils equal reactive to light and accommodation, full extraocular movements, sclera clear, non-icteric, no discharge. EARS/NOSE AND THROAT: Ears normal, nose normal, oropharynx normal, oral membranes well hydrated without lesions. NECK: Supple, no masses, thyroid normal, CHEST: Inspection within normal limits. CARDIOVASCULAR: Heart: Regular rate and rhythm RESPIRATORY: Lungs clear to auscultation GASTROINTESTINAL AND LIVER: Abdomen: Soft, epigastric tenderness, non-distended, no hernias, no masses, no organomegaly, no ascites, no guarding, no rebound tenderness, normoactive bowel sounds. Rectal: Deferred. GENITOURINARY: Male genitalia within normal limits. EXTREMITIES: No cyanosis, clubbing or edema. Result Diagram: 02/26/1927 02/26/1927 Results 24hrs Laboratory Tests Test 02/25/19 16:03 02/26/19 05:27 Lipase 28 White Blood Count 4.8 Red Blood Count 3.20 L Hemoglobin 10.2 L Hematocrit 29.7 L Mean Corpuscular Volume 92.8 Mean Corpuscular Hemoglobin 31.9 Mean Corpuscular Hemoglobin Concent 34.3 Red Cell Distribution Width 11.4 L Platelet Count 147 Mean Platelet Volume 10.9 H Immature Granulocytes % 0.200 Neutrophils % 57.3 Lymphocytes % 29.8 Monocytes % 9.0 Eosinophils % 3.1 Basophils % 0.6 Nucleated Red Blood Cells % 0.0 Immature Granulocytes # 0.010 Neutrophils # 2.7 Lymphocytes # 1.4 Monocytes # 0.4 Eosinophils # 0.2 Basophils # 0.0 Nucleated Red Blood Cells # 0.0 Sodium Level 141 Potassium Level 3.7 Chloride Level 105 Carbon Dioxide Level 25 Anion Gap 11 Blood Urea Nitrogen 10 Creatinine 0.80 Est Glomerular Filtrat Rate mL/min > 60 Glucose Level 89 Calcium Level 8.8 Phosphorus Level 3.5 Magnesium Level 1.7 Exam/Review of Systems Exam Vitals Vital Signs Date Temp Pulse Resp B/P (MAP) Pulse Ox O2 O2 Flow FiO2 Time Delivery Rate 02/26/19 98.0 74 20 104/63 97 Room Air 08:59 (77) Intake and Output 02/25/19 02/25/19 02/26/19 1515:00 23:00 07:00 IntakeIntake Total 680 ml 1350 ml 400 ml OutputOutput Total 300 ml 200 ml 1800 ml BalanceBalance 380 ml 1150 ml -1400 ml Results Results 24hrs Laboratory Tests Test 02/25/19 16:03 02/26/19 05:27 Lipase 28 White Blood Count 4.8 Red Blood Count 3.20 L Hemoglobin 10.2 L Hematocrit 29.7 L Mean Corpuscular Volume 92.8 Mean Corpuscular Hemoglobin 31.9 Mean Corpuscular Hemoglobin Concent 34.3 Red Cell Distribution Width 11.4 L Platelet Count 147 Mean Platelet Volume 10.9 H Immature Granulocytes % 0.200 Neutrophils % 57.3 Lymphocytes % 29.8 Monocytes % 9.0 Eosinophils % 3.1 Basophils % 0.6 Nucleated Red Blood Cells % 0.0 Immature Granulocytes # 0.010 Neutrophils # 2.7 Lymphocytes # 1.4 Monocytes # 0.4 Eosinophils # 0.2 Basophils # 0.0 Nucleated Red Blood Cells # 0.0 Sodium Level 141 Potassium Level 3.7 Chloride Level 105 Carbon Dioxide Level 25 Anion Gap 11 Blood Urea Nitrogen 10 Creatinine 0.80 Est Glomerular Filtrat Rate mL/min > 60 Glucose Level 89 Calcium Level 8.8 Phosphorus Level 3.5 Magnesium Level 1.7 Medications Medication Current Medications IV Flush (NS 3 ml) 3 ml PER PROTOCOL IV ; Start 02/21/19 at 17:00 Acetaminophen (Tylenol Tab) 650 mg Q6H PRN PO .PAIN 1-3 OR TEMP; Start 02/21/19 at 17:00 Heparin Sodium (Porcine) (Heparin (5000 Units/1ml)) 5,000 unit Q8 SC Last administered on 02/22/19 21:23; Admin Dose 5,000 UNIT; Start 02/21/19 at 22:00; Status Hold Phenazopyridine HCl (Pyridium) 100 mg TID PO Last administered on 02/26/19 08:53; Admin Dose 100 MG; Start 02/21/19 at 21:00 Tamsulosin HCl (Flomax) 0.4 mg HS PO Last administered on 02/25/19 21:17; Admin Dose 0.4 MG; Start 02/21/19 at 21:00 Carbamazepine (Tegretol) 100 mg TID PO Last administered on 02/26/19 08:53; Admin Dose 100 MG; Start 02/21/19 at 21:00 Miscellaneous Information Patients own medicat... BID@10,16 XX ; Start 02/22/19 at 16:00 Baclofen (Lioresal) 5 mg TID PO Last administered on 02/26/19 08:53; Admin Dose 5 MG; Start 02/23/19 at 13:00 Docusate Sodium (Colace) 100 mg BID PO Last administered on 02/26/19 08:53; Admin Dose 100 MG; Start 02/23/19 at 21:00 Buspirone HCl (Buspar) 5 mg BID PO Last administered on 02/25/19 09:16; Admin Dose 5 MG; Start 02/24/19 at 13:00; Status Hold Duloxetine HCl (Cymbalta) 20 mg DAILY PO Last administered on 02/25/19 09:16; Admin Dose 20 MG; Start 02/24/19 at 13:00; Status Hold Lorazepam (Ativan) 0.5 mg Q6H PRN IV ANXIETY Last administered on 02/25/19 23:54; Admin Dose 0.5 MG; Start 02/24/19 at 17:00 Oxycodone HCl (Roxicodone) 10 mg Q4H PRN PO MODERATE PAIN LEVEL 4-6 Last administered on 02/26/19 08:58; Admin Dose 10 MG; Start 02/24/19 at 21:00 Sucralfate (Carafate Susp) 1 gm QID PO Last administered on 02/26/19 08:53; Admin Dose 1 GM; Start 02/25/19 at 13:00 Prochlorperazine (Compazine Inj) 5 mg Q6H PRN IV NAUSEA AND/OR VOMITING Last administered on 02/26/19 04:23; Admin Dose 5 MG; Start 02/25/19 at 12:30 Sodium Chloride 1,000 ml @ 50 mls/hr Q20H IV Last administered on 02/26/19 08:52; Admin Dose 50 MLS/HR; Start 02/25/19 at 12:30 Pantoprazole (Protonix Tab) 40 mg BID@0600,1800 PO Last administered on 02/26/19 06:11; Admin Dose 40 MG; Start 02/25/19 at 18:00 Scopolamine (Transderm-Scop) 1 patch Q72H TRANSDERM Last administered on 02/25/19at 15:41; Admin Dose 1 PATCH; Start 02/25/19 at 15:30 Metoclopramide HCl (Reglan) 10 mg Q6 IV Last administered on 02/26/19 06:10; Admin Dose 10 MG; Start 02/25/19 at 18:00; Stop 02/27/19 at 00:01 Hydromorphone HCl (Dilaudid) 0.5 mg BID PRN IV PAIN; Start 02/26/19 at 10:30 MESERET PRESSLEY Feb 26, 2019 10:58
--- NOTE | 2019-02-26 11:01 | CONS ---
Assessment/Plan Assessment/Plan Hospital Course (Demo Recall) ID PROGRESS NOTE CURRENT ABX: DAY # => OFF ABX DAY #1 S/P CEFTRIAXONE 02/26/19 0502/26/19 05 24H INTERVAL SUMMARY * POD # 3 --> S/p cystoscopy/cystocele repair 02/23/19 * VSS, NAD, no fevers * Pt with ongoing episodes of n/v/palpitations/epigastric pain * Urine culture negative since admission * Indwelling: Scott catheter DIAGNOSTIC IMAGING * 03/04/19 ABD MRI:1. Status post hysterectomy.2. Trace free pelvic fluid which may be physiologic.3. Hepatomegaly with diffuse hepatic steatosis.4.Otherwise, unremarkable MRI of the abdomen and pelvis within the limitations of this exam. * 02/22/19 MRI BRAIN: 1. The intracranial contents are unremarkable on this noncontrast MRI of the brain. 2. Mild mucosal thickening ethmoid air cells. PHYSICAL EXAMINATION: GENERAL: VSS, NAD HEENT: AT, NC, NECK: Supple, CHEST: Rise symmetrical without dyspnea on observation HEART: Pulse RRR ABDOMEN: Benign EXTREMITIES: Warm, dry SKIN: No rash, no diaphoresis ID ASSESSMENT 38 yo F admit with: 1. Pelvic pain secondary to cystocele and urinary retention, status post cystoscopy/cystocele repair 02/23/19 2. Constipation 3. Recurrent UTI 4. Intractable nausea vomiting Postsurgical versus cannabinoid hyperemesis vs side effects from opioids 5. Fatty liver 6. Anemia 7. Depression 8. Marijuana user ABX ALLERGIES: KNDA INVASIVES: PIV CURRENT ABX: DAY # OFF ABX DAY #1 S/P CEFTRIAXONE ID RECOMMENDATIONS/PLAN: 1. Continue to monitor OFF ABX for recurrent sepsis indicators. . Consultation Date/Type/Reason Admit Date/Time Feb 21, 2019 at 16:59 Initial Consult Date 02/25/19 Requesting Provider: CALEB ADAMS Date/Time of Note DATE: 02/26/19 TIME: 11:01 Exam/Review of Systems Exam Vitals Vital Signs Date Temp Pulse Resp B/P (MAP) Pulse Ox O2 O2 Flow FiO2 Time Delivery Rate 02/26/19 98.0 74 20 104/63 97 Room Air 08:59 (77) Intake and Output 02/25/19 02/25/19 02/26/19 1515:00 23:00 07:00 IntakeIntake Total 680 ml 1350 ml 400 ml OutputOutput Total 300 ml 200 ml 1800 ml BalanceBalance 380 ml 1150 ml -1400 ml Results Result Diagram: 02/26/1952602/26/19526 Results 24hrs Laboratory Tests Test 02/25/19 16:03 02/26/19 05:27 Lipase 28 White Blood Count 4.8 Red Blood Count 3.20 L Hemoglobin 10.2 L Hematocrit 29.7 L Mean Corpuscular Volume 92.8 Mean Corpuscular Hemoglobin 31.9 Mean Corpuscular Hemoglobin Concent 34.3 Red Cell Distribution Width 11.4 L Platelet Count 147 Mean Platelet Volume 10.9 H Immature Granulocytes % 0.200 Neutrophils % 57.3 Lymphocytes % 29.8 Monocytes % 9.0 Eosinophils % 3.1 Basophils % 0.6 Nucleated Red Blood Cells % 0.0 Immature Granulocytes # 0.010 Neutrophils # 2.7 Lymphocytes # 1.4 Monocytes # 0.4 Eosinophils # 0.2 Basophils # 0.0 Nucleated Red Blood Cells # 0.0 Sodium Level 141 Potassium Level 3.7 Chloride Level 105 Carbon Dioxide Level 25 Anion Gap 11 Blood Urea Nitrogen 10 Creatinine 0.80 Est Glomerular Filtrat Rate mL/min > 60 Glucose Level 89 Calcium Level 8.8 Phosphorus Level 3.5 Magnesium Level 1.7 Medications Medication Current Medications IV Flush (NS 3 ml) 3 ml PER PROTOCOL IV ; Start 02/21/19 at 17:00 Acetaminophen (Tylenol Tab) 650 mg Q6H PRN PO .PAIN 1-3 OR TEMP; Start 02/21/19 at 17:00 Heparin Sodium (Porcine) (Heparin (5000 Units/1ml)) 5,000 unit Q8 SC Last administered on 02/22/19at 21:23; Admin Dose 5,000 UNIT; Start 02/21/19 at 22:00; Status Hold Phenazopyridine HCl (Pyridium) 100 mg TID PO Last administered on 02/26/19at 08:53; Admin Dose 100 MG; Start 02/21/19 at 21:00 Tamsulosin HCl (Flomax) 0.4 mg HS PO Last administered on 02/25/19at 21:17; Admin Dose 0.4 MG; Start 02/21/19 at 21:00 Carbamazepine (Tegretol) 100 mg TID PO Last administered on 02/26/19at 08:53; Admin Dose 100 MG; Start 02/21/19 at 21:00 Miscellaneous Information Patients own medicat... BID@10,16 XX ; Start 02/22/19 at 16:00 Baclofen (Lioresal) 5 mg TID PO Last administered on 02/26/19 08:53; Admin Dose 5 MG; Start 02/23/19 at 13:00 Docusate Sodium (Colace) 100 mg BID PO Last administered on 02/26/19 08:53; Admin Dose 100 MG; Start 02/23/19 at 21:00 Buspirone HCl (Buspar) 5 mg BID PO Last administered on 02/25/19 09:16; Admin Dose 5 MG; Start 02/24/19 at 13:00; Status Hold Duloxetine HCl (Cymbalta) 20 mg DAILY PO Last administered on 02/25/19 09:16; Admin Dose 20 MG; Start 02/24/19 at 13:00; Status Hold Lorazepam (Ativan) 0.5 mg Q6H PRN IV ANXIETY Last administered on 02/25/19 23:54; Admin Dose 0.5 MG; Start 02/24/19 at 17:00 Oxycodone HCl (Roxicodone) 10 mg Q4H PRN PO MODERATE PAIN LEVEL 4-6 Last administered on 02/26/19 08:58; Admin Dose 10 MG; Start 02/24/19 at 21:00 Sucralfate (Carafate Susp) 1 gm QID PO Last administered on 02/26/19 08:53; Admin Dose 1 GM; Start 02/25/19 at 13:00 Prochlorperazine (Compazine Inj) 5 mg Q6H PRN IV NAUSEA AND/OR VOMITING Last administered on 02/26/19 04:23; Admin Dose 5 MG; Start 02/25/19 at 12:30 Sodium Chloride 1,000 ml @ 50 mls/hr Q20H IV Last administered on 02/26/19 08:52; Admin Dose 50 MLS/HR; Start 02/25/19 at 12:30 Pantoprazole (Protonix Tab) 40 mg BID@0600,1800 PO Last administered on 02/26/19 06:11; Admin Dose 40 MG; Start 02/25/19 at 18:00 Scopolamine (Transderm-Scop) 1 patch Q72H TRANSDERM Last administered on 02/25/19at 15:41; Admin Dose 1 PATCH; Start 02/25/19 at 15:30 Metoclopramide HCl (Reglan) 10 mg Q6 IV Last administered on 02/26/19at 06:10; Admin Dose 10 MG; Start 02/25/19 at 18:00; Stop 02/27/19 at 00:01 Hydromorphone HCl (Dilaudid) 0.5 mg BID PRN IV PAIN; Start 02/26/19 at 10:30 YAN BACA NP Feb 26, 2019 11:01
[2019-02-26] MEDS: LORAZEPAM 2 MG INJ IV PRN (12:23)
--- NOTE | 2019-02-26 12:37 | PN ---
Date/Time of Note Date/Time of Note DATE: 02/26/19 TIME: 12:35 Objective Vitals Vital Signs Date Temp Pulse Resp B/P (MAP) Pulse Ox O2 O2 Flow FiO2 Time Delivery Rate 02/26/19 98.3 69 20 120/74 97 Room Air 11:29 (89) Intake and Output 02/25/19 02/25/19 02/26/19 1515:00 23:00 07:00 IntakeIntake Total 680 ml 1350 ml 400 ml OutputOutput Total 300 ml 200 ml 1800 ml BalanceBalance 380 ml 1150 ml -1400 ml Results Result Diagram: 02/26/1952602/26/19526 Medications Medications Current Medications IV Flush (NS 3 ml) 3 ml PER PROTOCOL IV ; Start 02/21/19 at 17:00 Acetaminophen (Tylenol Tab) 650 mg Q6H PRN PO .PAIN 1-3 OR TEMP; Start 02/21/19 at 17:00 Heparin Sodium (Porcine) (Heparin (5000 Units/1ml)) 5,000 unit Q8 SC Last administered on 02/22/19at 21:23; Admin Dose 5,000 UNIT; Start 02/21/19 at 22:00; Status Hold Phenazopyridine HCl (Pyridium) 100 mg TID PO Last administered on 02/26/19 12:23; Admin Dose 100 MG; Start 02/21/19 at 21:00 Tamsulosin HCl (Flomax) 0.4 mg HS PO Last administered on 02/25/19at 21:17; Admin Dose 0.4 MG; Start 02/21/19 at 21:00 Carbamazepine (Tegretol) 100 mg TID PO Last administered on 02/26/19at 12:23; Admin Dose 100 MG; Start 02/21/19 at 21:00 Miscellaneous Information Patients own medicat... BID@10,16 XX ; Start 02/22/19 at 16:00 Baclofen (Lioresal) 5 mg TID PO Last administered on 02/26/19at 12:23; Admin Dose 5 MG; Start 02/23/19 at 13:00 Docusate Sodium (Colace) 100 mg BID PO Last administered on 02/26/19at 08:53; Admin Dose 100 MG; Start 02/23/19 at 21:00 Buspirone HCl (Buspar) 5 mg BID PO Last administered on 02/25/19 09:16; Admin Dose 5 MG; Start 02/24/19 at 13:00; Status Hold Duloxetine HCl (Cymbalta) 20 mg DAILY PO Last administered on 02/25/19 09:16; Admin Dose 20 MG; Start 02/24/19 at 13:00; Status Hold Lorazepam (Ativan) 0.5 mg Q6H PRN IV ANXIETY Last administered on 02/26/19 12:23; Admin Dose 0.5 MG; Start 02/24/19 at 17:00 Oxycodone HCl (Roxicodone) 10 mg Q4H PRN PO MODERATE PAIN LEVEL 4-6 Last administered on 02/26/19 08:58; Admin Dose 10 MG; Start 02/24/19 at 21:00 Sucralfate (Carafate Susp) 1 gm QID PO Last administered on 02/26/19 12:23; Admin Dose 1 GM; Start 02/25/19 at 13:00 Prochlorperazine (Compazine Inj) 5 mg Q6H PRN IV NAUSEA AND/OR VOMITING Last administered on 02/26/19 04:23; Admin Dose 5 MG; Start 02/25/19 at 12:30 Sodium Chloride 1,000 ml @ 50 mls/hr Q20H IV Last administered on 02/26/19 08:52; Admin Dose 50 MLS/HR; Start 02/25/19 at 12:30 Pantoprazole (Protonix Tab) 40 mg BID@0600,1800 PO Last administered on 02/26/19 06:11; Admin Dose 40 MG; Start 02/25/19 at 18:00 Scopolamine (Transderm-Scop) 1 patch Q72H TRANSDERM Last administered on 02/25/19at 15:41; Admin Dose 1 PATCH; Start 02/25/19 at 15:30 Metoclopramide HCl (Reglan) 10 mg Q6 IV Last administered on 02/26/19 12:23; Admin Dose 10 MG; Start 02/25/19 at 18:00; Stop 02/27/19 at 00:01 Hydromorphone HCl (Dilaudid) 0.5 mg BID PRN IV PAIN; Start 02/26/19 at 10:30 VTE Prophylaxis Risk score (from Nsg)>0 risk: 2 SCD applied (from Nsg): Yes Lines/Catheters IV Catheter Type: Scott in Place: No Assessment/Plan Hospital Course Subjective Patient's pelvic pain is still present, but improving, nausea/vomiting subsided Objective Physical exam General: Patient is laying in bed and answers questions appropriately Mentation: Patient is alert and oriented 4, Head: Normocephalic atraumatic Eyes: EOMI, pupils reactive to light Neck: Supple, nontender, midline Respiratory: Clear to auscultation bilaterally Cardiovascular: regular rate, no obvious murmurs Gastrointestinal: No tenderness to palpation, bowel sounds heard. Neurological: Moves all extremities spontaneously Skin: No new skin lesions Assessment and plan Intractable nausea and vomiting, resolved -Continue Compazine as needed, add scopolamine patch due to intractable nausea and vomiting -New medications that were started yesterday included BuSpar and Cymbalta, will hold for now, infectious disease also stopped ceftriaxone, does not feel needs additional antibiotics. -GI consulted -Added Carafate, helping significantly Palpitations, resolved -Patient upgraded to telemetry, will monitor -Questionable true palpitation, EKG within normal limits -Cardiology consulted -Echocardiogram noted Acute on chronic dysuria with urinary retention -Patient's urologist on board, Dr. Ramirez -Per urology recommendations, will order MRI with and without contrast, MRI reviewed -Cystoscopy with cystocele repair done, vaginal packing removed, symptoms are moderately improving, patient will leave with leg bag Major depressive disorder with rule out posttraumatic stress disorder -BuSpar and Cymbalta started per psychiatry but now held due to above nausea vomiting, will slowly reintroduce -Ativan as needed -Patient had a traumatic event during childhood -Patient has multiple bouts of anxiety attacks and mood disorders during this admission, on multiple attempts wants to leave AGAINST MEDICAL ADVICE but changes her mind, will need to treat anxiety attacks appropriately. Urinary tract infection, resolved -Likely secondary to patient's multiple urinary issues -Patient was on oral Levaquin, patient stated possible fatigue with cefepime so will change to IV ceftriaxone per infectious disease, infectious disease has now discontinue ceftriaxone, will monitor off antibiotics -Urology recommendations appreciated -Infectious disease consulted -mild IV hydration Dizziness -Improving - unlikely significance as patient does not complain about this issue currently however as patient's urinary issues are resolving patient's dizziness also seems to be resolving Blurry vision, intermittent for over 1 year -Very mild, likely sequelae to above factors including UTI and dizziness, however patient has also had mild vision issues for the past year and this is not a new finding per patient ever since patient had a bad seizure approximately 1 year ago -MRI head negative for acute issues -Patient states this only happens when she concentrates very hard prolonged periods of time, this may also be normal physiologic change however will monitor closely, -Neurology on board, saw patient, recommends outpatient follow-up with ophthalmology, stated this is likely sequelae of traumatic brain injury and seizure attacks last year Anemia -Very mild, monitor closely, follow-up outpatient Disposition , Monitor for pelvic pain, patient needing continued doses of IV medication, will reinitiate some psych meds tomorrow. CALEB ADAMS Feb 26, 2019 12:37
--- NOTE | 2019-02-26 12:58 | CONS ---
Assessment/Plan Assessment/Plan Assessment/Plan (Recall) 38 F c/ Hx of remote TBI c/b epilepsy...and other comorbidities...who presents for evaluation of urinary Sx. She notes longstanding though progressive diplopia and episodic strabismus...for which neurology is consulted. 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 MRI brain was unrevealing. P: Ophthalmology evaluation as an outpatient Other medical management and supportive care per primary Will sign off; please call w/ adnl questions Consultation Date/Type/Reason Admit Date/Time Feb 21, 2019 at 16:59 Type of Consult Neurology Reason for Consultation vision changes Requesting Provider: CALEB ADAMS Date/Time of Note DATE: 02/26/19 TIME: 12:58 Exam/Review of Systems Exam Vitals Vital Signs Date Temp Pulse Resp B/P (MAP) Pulse Ox O2 O2 Flow FiO2 Time Delivery Rate 02/26/19 60 12:00 02/26/19 98.3 20 120/74 97 Room Air 11:29 (89) Intake and Output 02/25/19 02/25/19 02/26/19 1515:00 23:00 07:00 IntakeIntake Total 680 ml 1350 ml 400 ml OutputOutput Total 300 ml 200 ml 1800 ml BalanceBalance 380 ml 1150 ml -1400 ml Results Result Diagram: 02/26/19 0527 02/26/19 0527 Results 24hrs Laboratory Tests Test 02/25/19 16:03 02/26/19 05:27 Lipase 28 White Blood Count 4.8 Red Blood Count 3.20 L Hemoglobin 10.2 L Hematocrit 29.7 L Mean Corpuscular Volume 92.8 Mean Corpuscular Hemoglobin 31.9 Mean Corpuscular Hemoglobin Concent 34.3 Red Cell Distribution Width 11.4 L Platelet Count 147 Mean Platelet Volume 10.9 H Immature Granulocytes % 0.200 Neutrophils % 57.3 Lymphocytes % 29.8 Monocytes % 9.0 Eosinophils % 3.1 Basophils % 0.6 Nucleated Red Blood Cells % 0.0 Immature Granulocytes # 0.010 Neutrophils # 2.7 Lymphocytes # 1.4 Monocytes # 0.4 Eosinophils # 0.2 Basophils # 0.0 Nucleated Red Blood Cells # 0.0 Sodium Level 141 Potassium Level 3.7 Chloride Level 105 Carbon Dioxide Level 25 Anion Gap 11 Blood Urea Nitrogen 10 Creatinine 0.80 Est Glomerular Filtrat Rate mL/min > 60 Glucose Level 89 Calcium Level 8.8 Phosphorus Level 3.5 Magnesium Level 1.7 Medications Medication Current Medications IV Flush (NS 3 ml) 3 ml PER PROTOCOL IV ; Start 02/21/19 at 17:00 Acetaminophen (Tylenol Tab) 650 mg Q6H PRN PO .PAIN 1-3 OR TEMP; Start 02/21/19 at 17:00 Heparin Sodium (Porcine) (Heparin (5000 Units/1ml)) 5,000 unit Q8 SC Last administered on 02/22/19 21:23; Admin Dose 5,000 UNIT; Start 02/21/19 at 22:00; Status Hold Phenazopyridine HCl (Pyridium) 100 mg TID PO Last administered on 02/26/19 12:23; Admin Dose 100 MG; Start 02/21/19 at 21:00 Tamsulosin HCl (Flomax) 0.4 mg HS PO Last administered on 02/25/19 21:17; Admin Dose 0.4 MG; Start 02/21/19 at 21:00 Carbamazepine (Tegretol) 100 mg TID PO Last administered on 02/26/19 12:23; Admin Dose 100 MG; Start 02/21/19 at 21:00 Miscellaneous Information Patients own medicat... BID@10,16 XX ; Start 02/22/19 at 16:00 Baclofen (Lioresal) 5 mg TID PO Last administered on 02/26/19 12:23; Admin Dose 5 MG; Start 02/23/19 at 13:00 Docusate Sodium (Colace) 100 mg BID PO Last administered on 02/26/19at 08:53; Admin Dose 100 MG; Start 02/23/19 at 21:00 Buspirone HCl (Buspar) 5 mg BID PO Last administered on 02/25/19 09:16; Admin Dose 5 MG; Start 02/24/19 at 13:00; Status Hold Duloxetine HCl (Cymbalta) 20 mg DAILY PO Last administered on 02/25/19 09:16; Admin Dose 20 MG; Start 02/24/19 at 13:00; Status Hold Lorazepam (Ativan) 0.5 mg Q6H PRN IV ANXIETY Last administered on 02/26/19 12:23; Admin Dose 0.5 MG; Start 02/24/19 at 17:00 Oxycodone HCl (Roxicodone) 10 mg Q4H PRN PO MODERATE PAIN LEVEL 4-6 Last admi nistered on 02/26/19 08:58; Admin Dose 10 MG; Start 02/24/19 at 21:00 Sucralfate (Carafate Susp) 1 gm QID PO Last administered on 02/26/19 12:23; Admin Dose 1 GM; Start 02/25/19 at 13:00 Prochlorperazine (Compazine Inj) 5 mg Q6H PRN IV NAUSEA AND/OR VOMITING Last administered on 02/26/19 04:23; Admin Dose 5 MG; Start 02/25/19 at 12:30 Sodium Chloride 1,000 ml @ 50 mls/hr Q20H IV Last administered on 02/26/19 08:52; Admin Dose 50 MLS/HR; Start 02/25/19 at 12:30 Pantoprazole (Protonix Tab) 40 mg BID@0600,1800 PO Last administered on 02/26/19 06:11; Admin Dose 40 MG; Start 02/25/19 at 18:00 Scopolamine (Transderm-Scop) 1 patch Q72H TRANSDERM Last administered on 02/25/19 15:41; Admin Dose 1 PATCH; Start 02/25/19 at 15:30 Metoclopramide HCl (Reglan) 10 mg Q6 IV Last administered on 02/26/19 12:23; Admin Dose 10 MG; Start 02/25/19 at 18:00; Stop 02/27/19 at 00:01 Hydromorphone HCl (Dilaudid) 0.5 mg BID PRN IV PAIN; Start 02/26/19 at 10:30 LEYLA CAMPOS Feb 26, 2019 12:58
[2019-02-26] MEDS: HYDROmorphONE 0.5 MG/0.5 ML SYG IV PRN ×2 (16:31→22:29)
[2019-02-26] MEDS: TAMSULOSIN (SR) 0.4 MG CAP PO SCH (20:27)
[2019-02-27] VITALS (11 sets, daily range): BP systolic 95–129; BP diastolic 55–73; PULSE 53–100; RESP 18
[2019-02-27] MEDS: METOCLOPRAMIDE 10 MG INJ IV SCH (00:01)
[2019-02-27] MEDS: LORAZEPAM 2 MG INJ IV PRN ×2 (00:40→13:00)
[2019-02-27] MEDS: oxyCODONE 5 MG TAB PO PRN ×3 (02:47→17:35)
[2019-02-27] MEDS: PROCHLORPERAZINE 10 MG INJ IV PRN (02:48)
[2019-02-27] MEDS: SOD CHLORIDE 0.9% 1,000 ML IV SCH (05:33)
[2019-02-27] MEDS: HYDROmorphONE 0.5 MG/0.5 ML SYG IV PRN ×2 (05:37→22:01)
[2019-02-27] MEDS: PANTOPRAZOLE (EC) 40 MG TAB PO SCH ×2 (05:42→17:35)
[2019-02-27] MEDS: PHENAZOPYRIDINE 100 MG TAB PO SCH ×3 (10:19→21:22)
[2019-02-27] MEDS: CARBAMAZEPINE 200 MG TAB PO SCH ×3 (10:19→21:22)
[2019-02-27] MEDS: SUCRALFATE (100 MG/ML) 10ML CUP PO SCH ×4 (10:19→21:22)
[2019-02-27] MEDS: BACLOFEN 10 MG TAB PO SCH ×3 (10:20→21:22)
[2019-02-27] MEDS: DOCUSATE SODIUM 100 MG CAP PO SCH ×2 (10:20→21:22)
[2019-02-27] MEDS ORDERED: POTASSIUM CHLORIDE 20 MEQ POWDER FOR ORAL SOLN PO ONE (10:30)
--- NOTE | 2019-02-27 11:10 | PN ---
Date/Time of Note Date/Time of Note DATE: 02/27/19 TIME: 11:05 Objective Vitals Vital Signs Date Temp Pulse Resp B/P (MAP) Pulse Ox O2 O2 Flow FiO2 Time Delivery Rate 02/27/19 73 08:00 02/27/19 98.0 18 95/62 (73) 97 07:51 02/26/19 Room Air 20:16 Intake and Output 02/26/19 02/26/19 02/27/19 1515:00 23:00 07:00 IntakeIntake Total 2500 ml OutputOutput Total 603 ml BalanceBalance 1897 ml Results Result Diagram: 02/27/19 0526 02/27/19 05 Medications Medications Current Medications IV Flush (NS 3 ml) 3 ml PER PROTOCOL IV ; Start 02/21/19 at 17:00 Acetaminophen (Tylenol Tab) 650 mg Q6H PRN PO .PAIN 1-3 OR TEMP; Start 02/21/19 at 17:00 Heparin Sodium (Porcine) (Heparin (5000 Units/1ml)) 5,000 unit Q8 SC Last administered on 02/22/19at 21:23; Admin Dose 5,000 UNIT; Start 02/21/19 at 22:00; Status Hold Phenazopyridine HCl (Pyridium) 100 mg TID PO Last administered on 02/27/19 10:19; Admin Dose 100 MG; Start 02/21/19 at 21:00 Tamsulosin HCl (Flomax) 0.4 mg HS PO Last administered on 02/26/19at 20:27; Admin Dose 0.4 MG; Start 02/21/19 at 21:00 Carbamazepine (Tegretol) 100 mg TID PO Last administered on 02/27/19at 10:19; Admin Dose 100 MG; Start 02/21/19 at 21:00 Miscellaneous Information Patients own medicat... BID@ XX ; Start 02/22/19 at 16:00 Baclofen (Lioresal) 5 mg TID PO Last administered on 02/27/19 10:20; Admin Dose 5 MG; Start 02/23/19 at 13:00 Docusate Sodium (Colace) 100 mg BID PO Last administered on 02/27/19 10:20; Admin Dose 100 MG; Start 02/23/19 at 21:00 Buspirone HCl (Buspar) 5 mg BID PO Last administered on 02/25/19at 09:16; Admin Dose 5 MG; Start 02/24/19 at 13:00; Status Hold Lorazepam (Ativan) 0.5 mg Q6H PRN IV ANXIETY Last administered on 02/27/19at 00:40; Admin Dose 0.5 MG; Start 02/24/19 at 17:00 Oxycodone HCl (Roxicodone) 10 mg Q4H PRN PO MODERATE PAIN LEVEL 4-6 Last administered on 02/27/19at 10:35; Admin Dose 10 MG; Start 02/24/19 at 21:00 Sucralfate (Carafate Susp) 1 gm QID PO Last administered on 02/27/19at 10:19; Admin Dose 1 GM; Start 02/25/19 at 13:00 Prochlorperazine (Compazine Inj) 5 mg Q6H PRN IV NAUSEA AND/OR VOMITING Last administered on 02/27/19at 02:48; Admin Dose 5 MG; Start 02/25/19 at 12:30 Sodium Chloride 1,000 ml @ 50 mls/hr Q20H IV Last administered on 02/27/19at 05:33; Admin Dose 50 MLS/HR; Start 02/25/19 at 12:30 Pantoprazole (Protonix Tab) 40 mg BID@0600,1800 PO Last administered on 02/27/19 at 05:42; Admin Dose 40 MG; Start 02/25/19 at 18:00 Scopolamine (Transderm-Scop) 1 patch Q72H TRANSDERM Last administered on 02/25/19at 15:41; Admin Dose 1 PATCH; Start 02/25/19 at 15:30 Hydromorphone HCl (Dilaudid) 0.5 mg BID PRN IV PAIN Last administered on 02/27/19at 05:37; Admin Dose 0.5 MG; Start 02/26/19 at 10:30 Duloxetine HCl (Cymbalta) 20 mg DAILY PO ; Start 02/27/19 at 10:30 VTE Prophylaxis Risk score (from Nsg)>0 risk: 0 SCD applied (from Nsg): No SCD contraindication: other Lines/Catheters IV Catheter Type: Scott in Place: No Assessment/Plan Hospital Course Subjective Patient's pelvic pain is still present, but improving, nausea/vomiting subsided Objective Physical exam General: Patient is laying in bed and answers questions appropriately Mentation: Patient is alert and oriented 4, Head: Normocephalic atraumatic Eyes: EOMI, pupils reactive to light Neck: Supple, nontender, midline Respiratory: Clear to auscultation bilaterally Cardiovascular: regular rate, no obvious murmurs Gastrointestinal: No tenderness to palpation, bowel sounds heard. Neurological: Moves all extremities spontaneously Skin: No new skin lesions Assessment and plan Intractable nausea and vomiting, resolving -Continue Compazine as needed, added scopolamine patch due to intractable nausea and vomiting, doing really well -New medications that were started, included BuSpar and Cymbalta, held both medications however will restart one at a time, will restart Cymbalta today. -GI consulted -Added Carafate, helping significantly Palpitations, resolved -Patient upgraded to telemetry, will monitor -Questionable true palpitation, EKG within normal limits -Cardiology consulted -Echocardiogram pending Acute on chronic dysuria with urinary retention -Patient's urologist on board, Dr. Ramirez -Per urology recommendations, will order MRI with and without contrast, MRI reviewed -Cystoscopy with cystocele repair done, vaginal packing removed, patient able to urinate without Scott catheter. Major depressive disorder with rule out posttraumatic stress disorder -BuSpar and Cymbalta started per psychiatry but now held due to above nausea vomiting, will slowly reintroduce -Ativan as needed -Patient had a traumatic event during childhood -Patient has multiple bouts of anxiety attacks and mood disorders during this admission, on multiple attempts wants to leave AGAINST MEDICAL ADVICE but changes her mind, will need to treat anxiety attacks appropriately. Urinary tract infection, resolved -Likely secondary to patient's multiple urinary issues -Patient was on oral Levaquin, patient stated possible fatigue with cefepime so will change to IV ceftriaxone per infectious disease, infectious disease has now discontinue ceftriaxone, will monitor off antibiotics -Urology recommendations appreciated -Infectious disease consulted -mild IV hydration Dizziness -Improving - unlikely significance as patient does not complain about this issue currently however as patient's urinary issues are resolving patient's dizziness also seems to be resolving Blurry vision, intermittent for over 1 year -Very mild, likely sequelae to above factors including UTI and dizziness, however patient has also had mild vision issues for the past year and this is not a new finding per patient ever since patient had a bad seizure approximately 1 year ago -MRI head negative for acute issues -Patient states this only happens when she concentrates very hard prolonged pe riods of time, this may also be normal physiologic change however will monitor closely, -Neurology on board, saw patient, recommends outpatient follow-up with ophthalmology, stated this is likely sequelae of traumatic brain injury and seizure attacks last year Anemia -Very mild, monitor closely, follow-up outpatient Disposition , Monitor for pelvic pain, will attempt to stop scopolamine patch and reintroduce 1 of patient's psych meds, continue to emphasize titrating off of Dilaudid as patient cannot go home with these medications, if patient's nausea and vomiting returns without scopolamine patch will need to continue scopolamine patch for now, unlikely able to DC with patch as this is like likely covered by most insurance. CALEB ADAMS Feb 27, 2019 11:10
--- NOTE | 2019-02-27 11:12 | RADRPT ---
Vent Rate: 64 bpm RR Interval: 944 msec MS Interval: 129 msec QRS Duration: 78 msec QT Interval: 396 msec QTC Interval: 408 msec P-R-T [place]: 68 - 56 - 46 degrees Sinus arrhythmia...V-rate 52- 75, variation>10% Electronically Signed By: Keny Boyer
[2019-02-27] MEDS: DULOXETINE 20 MG CAP DR PO SCH (12:59)
--- NOTE | 2019-02-27 13:44 | RADRPT ---
Echocardiogram Report Patient Name: César CANDELARIA ID: [id number] : 1980 (38y 11m)Study Date: 02/26/2019 1:14:28 PM Gender: FAccession #: [id number] Tech: Licha Anderson [facility] Location: [facility] Ref.Physician: CALEB ADAMS Height(Cm): BSA: Weight(Kg): Quality: AdequateOrder Physician: CALEB ADAMS Account #: Procedures: Echocardiographic Report: Transthoracic echocardiogram with complete 2D, M-Mode, and doppler examination. Indications: Palpitations. Measurements: 2D/M Mode Doppler Measurement Value Normal Range Measurement Value Normal Range LVIDd 2D 4.1 [ 3.8 - 5.2 ] cm AV Peak [place] 1.2 [ 100.0 - 170.0 ] cm/se c LVIDs 2D 2.6 [ 2.2 - 3.5 ] cm AV Peak PG 6.0 [ 2.0 - 9.0 ] mmHg LVPWd 2D 0.8 [ 0.6 - 0.9 ] cm LVOT Peak [place] 0.8 [ 70.0 - 110.0 ] cm/sec IVSd 2D 0.7 [ 0.6 - 0.9 ] cm LVOT Peak PG 2.0 [ 2.0 - 6.0 ] mmHg AoR Diam 2D 2.6 [ 2.3 - 3.1 ] cm MV E Peak [place] 0.7 [ 60.0 - 130.0 ] cm/sec EDV 2D 73.8 [ 46.0 - 106.0 ] ml MV A Peak [place] 0.4 [ 100.0 - 120.0 ] cm/se c ESV 2D 24.8 [ 14.0 - 42.0 ] ml MV E/A 1.7 [ 0.8 - 1.5 ] ratio EF 2D 66.4 [ 54.0 - 74.0 ] percent MV PHT 68.0 [ 20.0 - 100.0 ] msec LA Dimen 2D 2.5 [ 2.7 - 3.8 ] cm MV Decel Time 231 [ 104 - 258 ] msec MV Decel [place] 3 Med E` Alton 0.1 cm/sec MV E/A 1.7 [ 0.8 - 1.5 ] ratio MVA PHT 3.2 [ 2.0 - 4.0 ] cm2 TR Peak [place] 2.2 [ 100.0 - 280.0 ] cm/se c TR Peak PG 20.0 mmHg Findings: Left Ventricle: Normal left ventricular systolic function. Normal left ventricular cavity size. Normal left ventricular wall thickness. Ejection fraction is visually estimated at 55-60 %. Tissue Doppler/Mitral Doppler indices are within normal limits. Right Ventricle: Normal right ventricular size. Normal right ventricular systolic function. Left Atrium: The left atrium is normal in size. Right Atrium: The right atrium is normal in size. Atrial Septum: Normal atrial septum. Ventricular septum: Normal/intact ventricular septum. Mitral Valve: Normal appearance of the mitral valve. Aortic Valve: Normal appearance of the aortic valve. Tricuspid Valve: Normal appearance of the tricuspid valve. There is trace tricuspid regurgitation. Pulmonic Valve: Normal pulmonic valve appearance. No evidence of pulmonic regurgitation. Pericardium: Normal pericardium with no significant pericardial effusion. Aorta: Normal aortic root. IVC: Normal size and normal respiratory collapse consistent with normal right atrial pressure. Conclusions: Normal left ventricular systolic function. Normal left ventricular cavity size. Normal left ventricular wall thickness. Ejection fraction is visually estimated at 55-60 %. Tissue Doppler/Mitral Doppler indices are within normal limits. Normal appearance of the mitral valve. Electronically Signed By: Gil Sarah 2019-02-27 13:44:00 PDT
--- NOTE | 2019-02-27 14:01 | PN ---
Date/Time of Note Date/Time of Note DATE: 02/27/19 TIME: 14:00 Assessment/Plan VTE Prophylaxis Risk score (from Nsg)>0 risk: 0 SCD applied (from Ns): No SCD contraindicated: other (scds) Pharmacological prophylaxis: other (scds) Lines/Catheters IV [facility] (from [facility] Urinary Cath still in place: No Assessment/Plan Hospital Course Assessment: Intractable nausea vomiting Postsurgical versus cannabinoid hyperemesis vs side effects from opioids 02/24/19- s/p Cystocele repair. Cystoscopy. Fatty liver Anemia Depression Marijuana user Urine toxicology screening -Positive for opioids/benzodiazepines/cannabinoids Plan: Stool for H. pylori- pending Continue PPI and Carafate/Scopolamine patch Monitor the need for EGD, currently no plan Patient seen in collaboration with Dr. Weiner Subjective: Course reviewed with nursing staff Patient interviewed and examined All labs, imaging and other results reviewed Patient states she is feeling so much better. She feels the scopolamine patch has really helped the most Will continue current regimen- monitor for the next 24 hours, If stable GI will sign off. PHYSICAL EXAMINATION: GENERAL: Well developed, well nourished, alert & oriented x 3, in no acute distress HEAD: Normocephalic, atraumatic, no tenderness. EYES: Pupils equal reactive to light and accommodation, full extraocular movements, sclera clear, non-icteric, no discharge. EARS/NOSE AND THROAT: Ears normal, nose normal, oropharynx normal, oral membranes well hydrated without lesions. NECK: Supple, no masses, thyroid normal, CHEST: Inspection within normal limits. CARDIOVASCULAR: Heart: Regular rate and rhythm RESPIRATORY: Lungs clear to auscultation GASTROINTESTINAL AND LIVER: Abdomen: Soft, epigastric tenderness, non-distended, no hernias, no masses, no organomegaly, no ascites, no guarding, no rebound tenderness, normoactive bowel sounds. Rectal: Deferred. GENITOURINARY: Male genitalia within normal limits. EXTREMITIES: No cyanosis, clubbing or edema. Result Diagram: 02/27/1952502/27/19525 Results 24hrs Laboratory Tests Test 02/27/19 05:26 White Blood Count 4.9 Red Blood Count 3.00 L Hemoglobin 9.6 L Hematocrit 28.2 L Mean Corpuscular Volume 94.0 Mean Corpuscular Hemoglobin 32.0 Mean Corpuscular Hemoglobin Concent 34.0 Red Cell Distribution Width 11.5 Platelet Count 142 Mean Platelet Volume 11.0 H Immature Granulocytes % 0.200 Neutrophils % 48.6 Lymphocytes % 37.7 Monocytes % 9.6 Eosinophils % 2.9 Basophils % 1.0 Nucleated Red Blood Cells % 0.0 Immature Granulocytes # 0.010 Neutrophils # 2.4 Lymphocytes # 1.8 Monocytes # 0.5 Eosinophils # 0.1 Basophils # 0.1 Nucleated Red Blood Cells # 0.0 Sodium Level 142 Potassium Level 3.3 L Chloride Level 106 Carbon Dioxide Level 25 Anion Gap 11 Blood Urea Nitrogen 12 Creatinine 0.76 Est Glomerular Filtrat Rate mL/min > 60 Glucose Level 87 Calcium Level 8.4 Phosphorus Level 3.7 Magnesium Level 1.8 Exam/Review of Systems Exam Vitals Vital Signs Date Temp Pulse Resp B/P (MAP) Pulse Ox O2 O2 Flow FiO2 Time Delivery Rate 02/27/19 98.0 62 18 103/63 98 12:10 (76) 02/26/19 Room Air 20:16 Intake and Output 02/26/19 02/26/19 02/27/19 1515:00 23:00 07:00 IntakeIntake Total 2500 ml OutputOutput Total 603 ml BalanceBalance 1897 ml Results Results 24hrs Laboratory Tests Test 02/27/19 05:26 White Blood Count 4.9 Red Blood Count 3.00 L Hemoglobin 9.6 L Hematocrit 28.2 L Mean Corpuscular Volume 94.0 Mean Corpuscular Hemoglobin 32.0 Mean Corpuscular Hemoglobin Concent 34.0 Red Cell Distribution Width 11.5 Platelet Count 142 Mean Platelet Volume 11.0 H Immature Granulocytes % 0.200 Neutrophils % 48.6 Lymphocytes % 37.7 Monocytes % 9.6 Eosinophils % 2.9 Basophils % 1.0 Nucleated Red Blood Cells % 0.0 Immature Granulocytes # 0.010 Neutrophils # 2.4 Lymphocytes # 1.8 Monocytes # 0.5 Eosinophils # 0.1 Basophils # 0.1 Nucleated Red Blood Cells # 0.0 Sodium Level 142 Potassium Level 3.3 L Chloride Level 106 Carbon Dioxide Level 25 Anion Gap 11 Blood Urea Nitrogen 12 Creatinine 0.76 Est Glomerular Filtrat Rate mL/min > 60 Glucose Level 87 Calcium Level 8.4 Phosphorus Level 3.7 Magnesium Level 1.8 Medications Medication Current Medications IV Flush (NS 3 ml) 3 ml PER PROTOCOL IV ; Start 02/21/19 at 17:00 Acetaminophen (Tylenol Tab) 650 mg Q6H PRN PO .PAIN 1-3 OR TEMP; Start 02/21/19 at 17:00 Heparin Sodium (Porcine) (Heparin (5000 Units/1ml)) 5,000 unit Q8 SC Last administered on 02/22/19 21:23; Admin Dose 5,000 UNIT; Start 02/21/19 at 22:00; Status Hold Phenazopyridine HCl (Pyridium) 100 mg TID PO Last administered on 02/27/19 12:59; Admin Dose 100 MG; Start 02/21/19 at 21:00 Tamsulosin HCl (Flomax) 0.4 mg HS PO Last administered on 02/26/19 20:27; Admin Dose 0.4 MG; Start 02/21/19 at 21:00 Carbamazepine (Tegretol) 100 mg TID PO Last administered on 02/27/19 12:59; Admin Dose 100 MG; Start 02/21/19 at 21:00 Miscellaneous Information Patients own medicat... BID@10,16 XX ; Start 02/22/19 at 16:00 Baclofen (Lioresal) 5 mg TID PO Last administered on 02/27/19 12:59; Admin Dose 5 MG; Start 02/23/19 at 13:00 Docusate Sodium (Colace) 100 mg BID PO Last administered on 02/27/19 10:20; Admin Dose 100 MG; Start 02/23/19 at 21:00 Buspirone HCl (Buspar) 5 mg BID PO Last administered on 02/25/19 09:16; Admin Dose 5 MG; Start 02/24/19 at 13:00; Status Hold Lorazepam (Ativan) 0.5 mg Q6H PRN IV ANXIETY Last administered on 02/27/19 13:00; Admin Dose 0.5 MG; Start 02/24/19 at 17:00 Oxycodone HCl (Roxicodone) 10 mg Q4H PRN PO MODERATE PAIN LEVEL 4-6 Last administered on 02/27/19 10:35; Admin Dose 10 MG; Start 02/24/19 at 21:00 Sucralfate (Carafate Susp) 1 gm QID PO Last administered on 02/27/19 12:59; Admin Dose 1 GM; Start 02/25/19 at 13:00 Prochlorperazine (Compazine Inj) 5 mg Q6H PRN IV NAUSEA AND/OR VOMITING Last administered on 02/27/19 02:48; Admin Dose 5 MG; Start 02/25/19 at 12:30 Pantoprazole (Protonix Tab) 40 mg BID@0600,1800 PO Last administered on 02/27/19 05:42; Admin Dose 40 MG; Start 02/25/19 at 18:00 Scopolamine (Transderm-Scop) 1 patch Q72H TRANSDERM Last administered on 02/25/19 15:41; Admin Dose 1 PATCH; Start 02/25/19 at 15:30 Hydromorphone HCl (Dilaudid) 0.5 mg BID PRN IV PAIN Last administered on 02/27/19 05:37; Admin Dose 0.5 MG; Start 02/26/19 at 10:30 Duloxetine HCl (Cymbalta) 20 mg DAILY PO Last administered on 02/27/19 12:59; Admin Dose 20 MG; Start 02/27/19 at 10:30 MESERET PRESSLEY Feb 27, 2019 14:01
--- NOTE | 2019-02-27 18:42 | CONS ---
Assessment/Plan Assessment/Plan Hospital Course (Demo Recall) ID PROGRESS NOTE CURRENT ABX: DAY # => OFF ABX DAY #2 S/P CEFTRIAXONE 24H INTERVAL SUMMARY * POD # 4 --> S/p cystoscopy/cystocele repair 02/23/19 * CURRENTLY SOMNOLENT AND NOT DISTURBED => chart reviewed: VSS, NAD, no fevers * Started on he scopolamine patch has really helped per Neuro w/prior sx of n/v hx of remote TBI w/diplopia * Urine culture negative since admission * Indwelling: Scott catheter DIAGNOSTIC IMAGING * 03/04/19 ABD MRI:1. Status post hysterectomy.2. Trace free pelvic fluid which may be physiologic.3. Hepatomegaly with diffuse hepatic steatosis.4.Otherwise, unremarkable MRI of the abdomen and pelvis within the limitations of this exam. * 02/22/19 MRI BRAIN: 1. The intracranial contents are unremarkable on this noncontrast MRI of the brain. 2. Mild mucosal thickening ethmoid air cells. PHYSICAL EXAMINATION: GENERAL: VSS, NAD HEENT: AT, NC, NECK: Supple, CHEST: Rise symmetrical without dyspnea on observation HEART: Pulse RRR ABDOMEN: Benign EXTREMITIES: Warm, dry SKIN: No rash, no diaphoresis ID ASSESSMENT 38 yo F admit with: 1. Pelvic pain secondary to cystocele and urinary retention, status post cystoscopy/cystocele repair 02/23/19 2. Constipation 3. Recurrent UTI 4. Intractable nausea vomiting Postsurgical versus cannabinoid hyperemesis vs side effects from opioids 5. Fatty liver 6. Anemia 7. Depression 8. Marijuana user ABX ALLERGIES: KNDA INVASIVES: PIV CURRENT ABX: DAY # OFF ABX DAY #1 S/P CEFTRIAXONE ID RECOMMENDATIONS/PLAN: 1. Continue to monitor OFF ABX for recurrent sepsis indicators. . Consultation Date/Type/Reason Admit Date/Time Feb 21, 2019 at 16:59 Initial Consult Date 02/25/19 Requesting Provider: CALEB ADAMS Date/Time of Note DATE: 02/27/19 TIME: 18:39 Exam/Review of Systems Exam Vitals Vital Signs Date Temp Pulse Resp B/P (MAP) Pulse Ox O2 O2 Flow FiO2 Time Delivery Rate 02/27/19 100 16:00 02/27/19 98.0 18 117/67 98 15:59 (84) 02/26/19 Room Air 20:16 Intake and Output 02/26/19 02/26/19 02/27/19 1515:00 23:00 07:00 IntakeIntake Total 2500 ml OutputOutput Total 603 ml BalanceBalance 1897 ml Results Result Diagram: 02/27/19 0526 02/27/19 0526 Results 24hrs Laboratory Tests Test 02/27/19 05:26 White Blood Count 4.9 Red Blood Count 3.00 L Hemoglobin 9.6 L Hematocrit 28.2 L Mean Corpuscular Volume 94.0 Mean Corpuscular Hemoglobin 32.0 Mean Corpuscular Hemoglobin Concent 34.0 Red Cell Distribution Width 11.5 Platelet Count 142 Mean Platelet Volume 11.0 H Immature Granulocytes % 0.200 Neutrophils % 48.6 Lymphocytes % 37.7 Monocytes % 9.6 Eosinophils % 2.9 Basophils % 1.0 Nucleated Red Blood Cells % 0.0 Immature Granulocytes # 0.010 Neutrophils # 2.4 Lymphocytes # 1.8 Monocytes # 0.5 Eosinophils # 0.1 Basophils # 0.1 Nucleated Red Blood Cells # 0.0 Sodium Level 142 Potassium Level 3.3 L Chloride Level 106 Carbon Dioxide Level 25 Anion Gap 11 Blood Urea Nitrogen 12 Creatinine 0.76 Est Glomerular Filtrat Rate mL/min > 60 Glucose Level 87 Calcium Level 8.4 Phosphorus Level 3.7 Magnesium Level 1.8 Medications Medication Current Medications IV Flush (NS 3 ml) 3 ml PER PROTOCOL IV ; Start 02/21/19 at 17:00 Acetaminophen (Tylenol Tab) 650 mg Q6H PRN PO .PAIN 1-3 OR TEMP; Start 02/21/19 at 17:00 Heparin Sodium (Porcine) (Heparin (5000 Units/1ml)) 5,000 unit Q8 SC Last administered on 02/22/19at 21:23; Admin Dose 5,000 UNIT; Start 02/21/19 at 22:00; Status Hold Phenazopyridine HCl (Pyridium) 100 mg TID PO Last administered on 02/27/19at 12:59; Admin Dose 100 MG; Start 02/21/19 at 21:00 Tamsulosin HCl (Flomax) 0.4 mg HS PO Last administered on 02/26/19at 20:27; Admin Dose 0.4 MG; Start 02/21/19 at 21:00 Carbamazepine (Tegretol) 100 mg TID PO Last administered on 02/27/19 12:59; Admin Dose 100 MG; Start 02/21/19 at 21:00 Miscellaneous Information Patients own medicat... BID@10,16 XX ; Start 02/22/19 at 16:00 Baclofen (Lioresal) 5 mg TID PO Last administered on 02/27/19 12:59; Admin Dose 5 MG; Start 02/23/19 at 13:00 Docusate Sodium (Colace) 100 mg BID PO Last administered on 02/27/19 10:20; Admin Dose 100 MG; Start 02/23/19 at 21:00 Buspirone HCl (Buspar) 5 mg BID PO Last administered on 02/25/19 09:16; Admin Dose 5 MG; Start 02/24/19 at 13:00; Status Hold Lorazepam (Ativan) 0.5 mg Q6H PRN IV ANXIETY Last administered on 02/27/19 13:00; Admin Dose 0.5 MG; Start 02/24/19 at 17:00 Oxycodone HCl (Roxicodone) 10 mg Q4H PRN PO MODERATE PAIN LEVEL 4-6 Last administered on 02/27/19 17:35; Admin Dose 10 MG; Start 02/24/19 at 21:00 Sucralfate (Carafate Susp) 1 gm QID PO Last administered on 02/27/19 17:35; Admin Dose 1 GM; Start 02/25/19 at 13:00 Prochlorperazine (Compazine Inj) 5 mg Q6H PRN IV NAUSEA AND/OR VOMITING Last administered on 02/27/19 02:48; Admin Dose 5 MG; Start 02/25/19 at 12:30 Pantoprazole (Protonix Tab) 40 mg BID@0600,1800 PO Last administered on 02/27/19 17:35; Admin Dose 40 MG; Start 02/25/19 at 18:00 Scopolamine (Transderm-Scop) 1 patch Q72H TRANSDERM Last administered on 02/25/19 15:41; Admin Dose 1 PATCH; Start 02/25/19 at 15:30 Hydromorphone HCl (Dilaudid) 0.5 mg BID PRN IV PAIN Last administered on 02/27/19 05:37; Admin Dose 0.5 MG; Start 02/26/19 at 10:30 Duloxetine HCl (Cymbalta) 20 mg DAILY PO Last administered on 02/27/19at 12:59; Admin Dose 20 MG; Start 02/27/19 at 10:30 YAN BACA NP Feb 27, 2019 18:42
[2019-02-27] MEDS: TAMSULOSIN (SR) 0.4 MG CAP PO SCH (21:22)
[2019-02-28] VITALS (8 sets, daily range): BP systolic 96–118; BP diastolic 52–59; PULSE 66–99; RESP 18
[2019-02-28] MEDS: oxyCODONE 5 MG TAB PO PRN ×2 (00:27→05:46)
[2019-02-28] MEDS: LORAZEPAM 2 MG INJ IV PRN (00:31)
[2019-02-28] MEDS: PANTOPRAZOLE (EC) 40 MG TAB PO SCH (05:40)
[2019-02-28] MEDS: PROCHLORPERAZINE 10 MG INJ IV PRN (05:40)
[2019-02-28] MEDS: SUCRALFATE (100 MG/ML) 10ML CUP PO SCH ×2 (10:08→12:57)
[2019-02-28] MEDS: DOCUSATE SODIUM 100 MG CAP PO SCH (10:08)
[2019-02-28] MEDS: BACLOFEN 10 MG TAB PO SCH ×2 (10:09→12:57)
[2019-02-28] MEDS: DULOXETINE 20 MG CAP DR PO SCH (10:09)
[2019-02-28] MEDS: PHENAZOPYRIDINE 100 MG TAB PO SCH ×2 (10:09→12:57)
[2019-02-28] MEDS: CARBAMAZEPINE 200 MG TAB PO SCH ×2 (10:10→12:57)
--- NOTE | 2019-02-28 10:46 | PN ---
Date/Time of Note Date/Time of Note DATE: 02/28/19 TIME: 10:37 Assessment/Plan VTE Prophylaxis Risk score (from Nsg)>0 risk: 0 SCD applied (from Nsg): Yes Pharmacological prophylaxis: NA/contraindicated Pharm contraindication: low risk/ambulating Lines/Catheters IV Catheter Type (from Nrsg): Mid Line Urinary Cath still in place: No Assessment/Plan Assessment/Plan 1. Intractable nausea and vomiting- resolved - Tolerating PO intake and states current medications are helping. Unsure if scopolamine is covered by insurance but will send script anyway per patients request - GI consultation appreciated and will continue on PPI and Carafate 2. Acute on chronic dysuria with urinary retention - Urology consultation appreciated and will have patient follow up as outpatient with Dr. Ramirez - MRI results noted - Cystoscopy with cystocele repair done, vaginal packing removed, patient able to urinate without Scott catheter but still with discomfort 3. Major depressive disorder with rule out posttraumatic stress disorder - Patient tolerating Cymbalta but states making her sleepy. Discussed taking medication at night - Patient had a traumatic event during childhood 4. Urinary tract infection, resolved - Likely secondary to patient's multiple urinary issues - Patient was on oral Levaquin, patient stated possible fatigue with cefepime so will change to IV ceftriaxone per infectious disease, infectious disease has now discontinue ceftriaxone, will monitor off antibiotics - Urology recommendations appreciated - ID recommendations appreciated and doing well off antibiotics 5. 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 Anemia - Very mild - no need for transfusions at this time 7. Disposition - Medically stable for discharge home Result Diagram: 02/28/19 0535 02/28/19 0500 Results 24hrs Laboratory Tests Test 02/28/19 05:00 02/28/19 05:35 Sodium Level 141 Potassium Level 4.1 Chloride Level 105 Carbon Dioxide Level 25 Anion Gap 11 Blood Urea Nitrogen 13 Creatinine 0.64 Est Glomerular Filtrat Rate mL/min > 60 Glucose Level 90 Calcium Level 8.9 Phosphorus Level 4.4 Magnesium Level 1.8 White Blood Count 5.5 Red Blood Count 3.09 L Hemoglobin 9.9 L Hematocrit 29.4 L Mean Corpuscular Volume 95.1 Mean Corpuscular Hemoglobin 32.0 Mean Corpuscular Hemoglobin Concent 33.7 Red Cell Distribution Width 11.9 Platelet Count 149 Mean Platelet Volume 10.8 H Immature Granulocytes % 0.200 Neutrophils % 55.3 Lymphocytes % 31.0 Monocytes % 9.9 Eosinophils % 3.1 Basophils % 0.5 Nucleated Red Blood Cells % 0.0 Immature Granulocytes # 0.010 Neutrophils # 3.0 Lymphocytes # 1.7 Monocytes # 0.5 Eosinophils # 0.2 Basophils # 0.0 Nucleated Red Blood Cells # 0.0 Subjective 24 Hr Interval Summary Free Text/Dictation Patient states shes feeling much better and believes current medications are helping her N/V symptoms. patient still with urethra pain s/p cystoscopy but relief with pain control. No acute overnight events. Exam/Review of Systems Exam Vitals Vital Signs Date Temp Pulse Resp B/P (MAP) Pulse Ox O2 O2 Flow FiO2 Time Delivery Rate 02/28/19 67 08:00 02/28/19 98.0 18 118/57 98 07:50 (77) 02/26/19 Room Air 20:16 Intake and Output 02/27/19 02/27/19 02/28/19 1515:00 23:00 07:00 IntakeIntake Total 800 ml 1800 ml BalanceBalance 800 ml 1800 ml Exam General: Patient is laying in bed and answers questions appropriately Neck: Supple, nontender, midline Respiratory: Clear to auscultation bilaterally. no wheezing or rhonchi Cardiovascular: regular rate and rhythm, no obvious murmurs Gastrointestinal: soft, nontender to palpation, nondistended, bowel sounds heard. Neurological: Moves all extremities spontaneously Skin: No new skin lesions Results Results 24hrs Laboratory Tests Test 02/28/19 05:00 02/28/19 05:35 Sodium Level 141 Potassium Level 4.1 Chloride Level 105 Carbon Dioxide Level 25 Anion Gap 11 Blood Urea Nitrogen 13 Creatinine 0.64 Est Glomerular Filtrat Rate mL/min > 60 Glucose Level 90 Calcium Level 8.9 Phosphorus Level 4.4 Magnesium Level 1.8 White Blood Count 5.5 Red Blood Count 3.09 L Hemoglobin 9.9 L Hematocrit 29.4 L Mean Corpuscular Volume 95.1 Mean Corpuscular Hemoglobin 32.0 Mean Corpuscular Hemoglobin Concent 33.7 Red Cell Distribution Width 11.9 Platelet Count 149 Mean Platelet Volume 10.8 H Immature Granulocytes % 0.200 Neutrophils % 55.3 Lymphocytes % 31.0 Monocytes % 9.9 Eosinophils % 3.1 Basophils % 0.5 Nucleated Red Blood Cells % 0.0 Immature Granulocytes # 0.010 Neutrophils # 3.0 Lymphocytes # 1.7 Monocytes # 0.5 Eosinophils # 0.2 Basophils # 0.0 Nucleated Red Blood Cells # 0.0 Medications Medication Current Medications IV Flush (NS 3 ml) 3 ml PER PROTOCOL IV ; Start 02/21/19 at 17:00 Acetaminophen (Tylenol Tab) 650 mg Q6H PRN PO .PAIN 1-3 OR TEMP; Start 02/21/19 at 17:00 Heparin Sodium (Porcine) (Heparin (5000 Units/1ml)) 5,000 unit Q8 SC Last administered on 02/22/19 21:23; Admin Dose 5,000 UNIT; Start 02/21/19 at 22:00; Status Hold Phenazopyridine HCl (Pyridium) 100 mg TID PO Last administered on 02/28/19 10:09; Admin Dose 100 MG; Start 02/21/19 at 21:00 Tamsulosin HCl (Flomax) 0.4 mg HS PO Last administered on 02/27/19 21:22; Admin Dose 0.4 MG; Start 02/21/19 at 21:00 Carbamazepine (Tegretol) 100 mg TID PO Last administered on 02/28/19 10:10; Admin Dose 100 MG; Start 02/21/19 at 21:00 Miscellaneous Information Patients own medicat... BID@ XX ; Start 02/22/19 at 16:00 Baclofen (Lioresal) 5 mg TID PO Last administered on 02/28/19 10:09; Admin Dose 5 MG; Start 02/23/19 at 13:00 Docusate Sodium (Colace) 100 mg BID PO Last administered on 02/28/19 10:08; Admin Dose 100 MG; Start 02/23/19 at 21:00 Buspirone HCl (Buspar) 5 mg BID PO Last administered on 02/25/19 09:16; Admin Dose 5 MG; Start 02/24/19 at 13:00; Status Hold Lorazepam (Ativan) 0.5 mg Q6H PRN IV ANXIETY Last administered on 02/28/19 00:31; Admin Dose 0.5 MG; Start 02/24/19 at 17:00 Oxycodone HCl (Roxicodone) 10 mg Q4H PRN PO MODERATE PAIN LEVEL 4-6 Last administered on 02/28/19 05:46; Admin Dose 10 MG; Start 02/24/19 at 21:00 Sucralfate (Carafate Susp) 1 gm QID PO Last administered on 02/28/19 10:08; Admin Dose 1 GM; Start 02/25/19 at 13:00 Prochlorperazine (Compazine Inj) 5 mg Q6H PRN IV NAUSEA AND/OR VOMITING Last administered on 02/28/19 05:40; Admin Dose 5 MG; Start 02/25/19 at 12:30 Pantoprazole (Protonix Tab) 40 mg BID@0600,1800 PO Last administered on 02/28/19 05:40; Admin Dose 40 MG; Start 02/25/19 at 18:00 Scopolamine (Transderm-Scop) 1 patch Q72H TRANSDERM Last administered on 02/25/19 15:41; Admin Dose 1 PATCH; Start 02/25/19 at 15:30 Hydromorphone HCl (Dilaudid) 0.5 mg BID PRN IV PAIN Last administered on 02/27/19 22:01; Admin Dose 0.5 MG; Start 02/26/19 at 10:30 Duloxetine HCl (Cymbalta) 20 mg DAILY PO Last administered on 02/28/19 10:09; Admin Dose 20 MG; Start 02/27/19 at 10:30 BELLO VILLEDA MD Feb 28, 2019 10:46
[2019-02-28] MEDS ORDERED: DULO20CA43 PO (10:54)
[2019-02-28] MEDS ORDERED: TAMS-14 PO (10:54)
[2019-02-28] MEDS ORDERED: OXYC-481 PO (10:54)
[2019-02-28] MEDS ORDERED: SCOP1PAT10 TRANSDERM (10:54)
[2019-02-28] MEDS ORDERED: SUCR1TAB56 PO (10:54)
[2019-02-28] MEDS ORDERED: PHEN-716 PO (10:54)
[2019-02-28] MEDS ORDERED: ONDA4TAB14 PO (10:54)
--- NOTE | 2019-02-28 11:02 | PDOCDIS ---
Discharge Instructions DIAGNOSIS Discharge Diagnosis 1. Intractable nausea and vomiting- resolved 2. Acute on chronic dysuria with urinary retention- resolved 3. Major depressive disorder with rule out posttraumatic stress disorder 4. Urinary tract infection, resolved 5. Blurry vision, intermittent for over 1 year 6. Anemia, mild CONDITION [id number] Patient Condition: [id number] Stable HOME CARE INSTRUCTIONS: [id number] Diet Instructions: [id number] Low Fat /Cholesterol ACTIVITY: [id number] Activity Restrictions: [id number] No Restrictions FOLLOW UP/APPOINTMENTS Follow-up Plan 1. Follow up with your primary care physician in 1-2 weeks 2. Follow up with Dr. Ramirez. Please call his office to schedule an appointment 3. It is recommended you see an manager of administration to evaluate your blurred vision 4. Take omeprazole twice a day for 8 weeks then continue daily. You will need to follow up with GI in 6-8 weeks 5. Take Carafate four times a day for 14 days 6. Take all other medications as prescribed 7. Make sure to take Cymbalta at night to avoid daytime sleepiness 8. If experiencing any concerning symptoms, please return to the nearest emergency department REFERRALS Other Referrals Jose Cruz Weiner MD Specialty: Gastroenterology Comments Office Address [address] [address] Office BELLO VILLEDA MD Feb 28, 2019 11:02
--- NOTE | 2019-02-28 18:30 | DS ---
Date/Time of Note Date/Time of Note DATE: 02/28/19 TIME: 18:30 Discharge Summary Admission/Discharge Info Admit Date/Time Feb 21, 2019 at 16:59 Discharge Date/Time Feb 28, 2019 at 13:45 Discharge Diagnosis 1. Intractable nausea and vomiting- resolved 2. Acute on chronic dysuria with urinary retention- resolved 3. Major depressive disorder with rule out posttraumatic stress disorder 4. Urinary tract infection, resolved 5. Blurry vision, intermittent for over 1 year 6. Anemia, mild Patient Condition: Stable Consults Urology- Dr. Ramirez Neurology- Dr. Reyes Infectious disease- Dr. Maloney GI- Dr. Weiner Cardiology- Dr. Copeland Procedures DATE OF OPERATION: 02/23/2019 PREOPERATIVE DIAGNOSES: 1. Cystocele. 2. Pelvic pain. 3. Urinary retention. POSTOPERATIVE DIAGNOSES: 1. Cystocele. 2. Pelvic pain. 3. Urinary retention. PROCEDURE PERFORMED: 1. Cystocele repair. 2. Cystoscopy. 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 Patient has been dealing with intermittent dysuria as well as worsening urinary retention for many months and now there is a questionable urinary diverticulum when patient was at the urologist office where he performed cystoscopy today. Currently patient complains of urinary and urethral site pain and has a Scott catheter otherwise is at baseline. Patient denies chest pain, shortness of breath, headache. Patient does state she has some nausea and some dizziness. Hospital Course Patient was admitted for Urological evaluation and Dr. Ramirez was consulted. She was started on broad spectrum antibiotics for treatment of UTI. Patient underwent MRI per Dr. Lewis request with results negative for any acute abnormalities. ID was consulted for antibiotic management and changed to Cefepime. Patient was taken for cystoscopy with cystocele repair on 02/23/19 with no acute intraoperative complications. Following procedure patient developed dizziness and worsening of already present visual changes. MRI brain was performed and negative for acute changes. Neurology was consulted with recommendations for outpatient ophthalmology follow up. She developed intractable nausea and vomiting and GI was consulted for further recommenda tions. She was started on PPI, Carafate, and Scopolamine with improvement in overall symptoms. Patients dizziness improved and was able to tolerate PO intake without further nausea/vomiting. She was experiencing post cystoscopy discomfort and pain was controlled on PO medications. Patients overall condition remained stable and presenting symptoms improved significantly. Patient was restarted on Cymbalta to help with mood symptoms. Her was medically optimized and discharged home in stable condition. She was recommended to follow with her PCP and Urologist after discharge. Home Meds Active Scripts Scopolamine (Transderm-Scop) 1 Each Patch.td.3, 1 PATCH TRANSDERM Q72H PRN for NAUSEA for 30 Days, #10 PATCH Prov:BELLO VILLEDA MD 02/28/19 Sucralfate* (Carafate*) 1 Gm Tab, 1 GM PO Q6 for 14 Days, #56 TAB Prov:BELLO VILLEDA MD 02/28/19 Oxycodone Hcl* (IR) (Roxicodone*) 5 Mg Tab, 10 MG PO Q6 PRN for MODERATE PAIN LEVEL 4-6 for 5 Days, #20 TAB Prov:BELLO VILLEDA MD 02/28/19 Duloxetine Hcl* (Cymbalta*) 20 Mg Capsule.dr, 20 MG PO QHS for 30 Days, #30 CAP 1 Refill Prov:BELLO VILLEDA MD 02/28/19 Phenazopyridine Hcl* (Phenazopyridine Hcl*) 100 Mg Tablet, 100 MG PO TID for 7 Days, #21 TAB Prov:BELLO VILLEDA MD 02/28/19 Tamsulosin Hcl* (Flomax*) 0.4 Mg Cap.er.24h, 0.8 MG PO HS for 30 Days, #30 CAP 1 Refill Prov:BELLO VILLEDA MD 02/28/19 Ondansetron (Ondansetron Odt) 4 Mg Tab.rapdis, 4 MG PO Q6H PRN for NAUSEA AND/OR VOMITING for 5 Days, #30 TAB Prov:BELLO VILLEDA MD 02/28/19 Baclofen* (Baclofen*) 10 Mg Tablet, 10 MG PO TID, #10 TAB Prov:CARLOS JONES MD 02/18/19 Reported Medications Carbamazepine* (Carbamazepine*) 100 Mg Tab.chew, 100 MG PO TID, #90 TAB.CHEW 02/21/19 Discontinued Reported Medications Phenazopyridine Hcl* (Phenazopyridine Hcl*) 200 Mg Tablet, 200 MG PO DAILY, TAB 02/21/19 Ondansetron Hcl* (Zofran*) 4 Mg Tab, 4 MG PO NEEDED PRN for NAUSEA AND OR VOMITING, TAB 02/21/19 Discontinued Scripts Hydrocodone/Acetaminophen ([place] 5-325 Tablet) 1 Each Tablet, 1 TAB PO Q6H PRN for PAIN, #7 TAB Prov:CARLOS JONES MD 02/18/19 Levofloxacin* (Levaquin*) 750 Mg Tablet, 750 MG PO DAILY for 5 Days, TAB Prov:CARLOS JONES MD 02/18/19 Follow-up Plan 1. Follow up with your primary care physician in 1-2 weeks 2. Follow up with Dr. Ramirez. Please call his office to schedule an appointment 3. 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 Take omeprazole twice a day for 8 weeks then continue daily. You will need to follow up with GI in 6-8 weeks 5. Take Carafate four times a day for 14 days 6. Take all other medications as prescribed 7. Make sure to take Cymbalta at night to avoid daytime sleepiness 8. If experiencing any concerning symptoms, please return to the nearest emergency department Primary Care Provider Not On Staff Doctor Time spent on discharge: > 30 minutes Pending Labs Laboratory Tests Test 02/28/19 05:00 02/28/19 05:35 Sodium Level 141 mmol/L (135-144) Potassium Level 4.1 mmol/L (3.5-5.1) Chloride Level 105 mmol/L (97-110) Carbon Dioxide Level 25 mmol/L (21-31) Anion Gap 11 (5-13) Blood Urea Nitrogen 13 mg/dl (7-20) Creatinine 0.64 mg/dl (0.44-1.00) Est Glomerular Filtrat > 60 mL/min (>60) Rate mL/min Glucose Level 90 mg/dl (70-220) Calcium Level 8.9 mg/dl (8.4-10.2) Phosphorus Level 4.4 mg/dl (2.5-4.9) Magnesium Level 1.8 mg/dl (1.7-2.5) White Blood Count 5.5 10^3/ul (4.8-10.8) Red Blood Count 3.09 10^6/ul (4.20-5.40) Hemoglobin 9.9 g/dl (12.0-16.0) Hematocrit 29.4 % (37.0-47.0) Mean Corpuscular Volume 95.1 fl (82.0-101.0) Mean Corpuscular Hemoglobin 32.0 pg (29.0-33.0) Mean Corpuscular 33.7 g/dl (32.0-37.0) Hemoglobin Concent Red Cell Distribution Width 11.9 % (11.5-14.5) Platelet Count 149 10^3/UL (140-415) Mean Platelet Volume 10.8 fl (7.4-10.4) Immature Granulocytes % 0.200 % (0.001-0.429) Neutrophils % 55.3 % (39.0-77.0) Lymphocytes % 31.0 % (15.0-51.0) Monocytes % 9.9 % (0.0-11.0) Eosinophils % 3.1 % (0.0-7.0) Basophils % 0.5 % (0.0-2.0) Nucleated Red Blood Cells % 0.0 /100WBC (0.0-0.0) Immature Granulocytes # 0.010 10^3/ul (0.0-0.031) Neutrophils # 3.0 10^3/ul (1.6-7.5) Lymphocytes # 1.7 10^3/ul (0.8-2.9) Monocytes # 0.5 10^3/ul (0.3-0.9) Eosinophils # 0.2 10^3/ul (0.0-0.5) Basophils # 0.0 10^3/ul (0.0-0.1) Nucleated Red Blood Cells # 0.0 10^3/ul (0.0-0.0) BELLO VILLEDA MD Feb 28, 2019 18:30
== END 2019-02-28 13:45 | disposition home or self-care (01) | DRG 663 ==
LOC: E/R 15:01 → 2NE 16:59 → SUATTDRO 16:59 → 2NE 16:59 → 5EC 02-24 20:10 → TEL 02-25 14:06
PROVIDERS: ADMIT Internal Medicine; ATTEND Internal Medicine
PROC: 0JQC0ZZ Repair Pelvic Region Subcutaneous Tissue and Fascia, Open Approach (ICD-10-PCS; principal; 2019-02-23 14:30)
DX: R33.8 Other retention of urine (principal); N39.0 Urinary tract infection, site not specified; F33.8 Other recurrent depressive disorders; N81.10 Cystocele, unspecified; G40.909 Epilepsy, unspecified, not intractable, without status epilepticus; D64.9 Anemia, unspecified; E86.0 Dehydration; R42 Dizziness and giddiness; H53.8 Other visual disturbances; R11.0 Nausea; R10.2 Pelvic and perineal pain; N32.89 Other specified disorders of bladder; K59.00 Constipation, unspecified; Z87.820 Personal history of traumatic brain injury; R11.2 Nausea with vomiting, unspecified; R00.2 Palpitations; K76.0 Fatty (change of) liver, not elsewhere classified; F12.90 Cannabis use, unspecified, uncomplicated; F43.10 Post-traumatic stress disorder, unspecified
CPT/HCPCS: 36415; 70551; 72197; 74183; 80048; 80053; 80307; 81001; 83690; 83735; 84100; 84703; 85025; 85610; 85730; 87086; 87338; 88305; 93005; 93306; J0690; J0692; J0696; J0780; J1170; J1200; J1644; J2060; J2175; J2250; J2270; J2405; J2765; J3010; J7030

== ENCOUNTER 2019-03-12 19:05 | Emergency (ER) | payer OTHER ==
[~2019-03-12] VITALS: Ht 157.5 cm; Wt 54.0 kg
[~2019-03-12 19:05] MED LIST changes: +CARB100T2 PO; +DULO20CA43 PO; -HYDR-4011 PO; -LEVO750T25 PO; +ONDA4TAB14 PO; +OXYC-481 PO; +PHEN-716 PO; +SCOP1PAT10 TRANSDERM; +SUCR1TAB56 PO; +TAMS-14 PO
[2019-03-12 19:09] VITALS: BP 143/64; PULSE 84; RESP 18; Ht 157.5 cm; Wt 54.0 kg
--- NOTE | 2019-03-12 21:35 | ERD ---
ER Documentation Chief Complaint Chief Complaint LOWER BACK PAIN S,P GLF YESTERDAY HPI History of Present Illness: 38-year-old female reports a past medical history of seizures coming in today due to lower back pain. Patient reports attempting to get of a car yesterday and the car was still rolling and she was not down by the door and fell onto her back and buttocks. Patient reports that she did not initially come in due to wanting to see if any bruising occurred. Patient reports that she did not notice any bruising but was still having pain so she decided to come in. Patient states that she wants her chiropractor to be able to work it out but she wants to get cleared with the x-ray first. Patient reports she also had a bladder surgery 2 weeks ago due to a prolapse and urethral cyst. Patient reports that she wants a CT scan to ensure that her vaginal sutures are okay. Patient denies any type of vaginal bleeding or pain/or abdominal pain. " It kind of just do not feel right" so I want the CAT scan done. Patient is very adamant about getting a CT scan and is demanding further imaging. Patient significant other present at bedside. At home pharmacological/nonpharmacological treatment for symptoms: Denies Denies social concerns; Denies recent foreign travel ROS All systems reviewed and are negative except as per history of present illness. Medications Home Meds Active Scripts Scopolamine (Transderm-Scop) 1 Each Patch.td.3, 1 PATCH TRANSDERM Q72H PRN for NAUSEA for 30 Days, #10 PATCH Prov:BELLO VILLEDA MD 02/28/19 Sucralfate* (Carafate*) 1 Gm Tab, 1 GM PO Q6 for 14 Days, #56 TAB Prov:BELLO VILLEDA MD 02/28/19 Oxycodone Hcl* (IR) (Roxicodone*) 5 Mg Tab, 10 MG PO Q6 PRN for MODERATE PAIN LEVEL 4-6 for 5 Days, #20 TAB Prov:BELLO VILLEDA MD 02/28/19 Duloxetine Hcl* (Cymbalta*) 20 Mg Capsule.dr, 20 MG PO QHS for 30 Days, #30 CAP 1 Refill Prov:BELLO VILLEDA MD 02/28/19 Phenazopyridine Hcl* (Phenazopyridine Hcl*) 100 Mg Tablet, 100 MG PO TID for 7 Days, #21 TAB Prov:BELLO VILLEDA MD 02/28/19 Tamsulosin Hcl* (Flomax*) 0.4 Mg Cap.er.24h, 0.8 MG PO HS for 30 Days, #30 CAP 1 Refill Prov:BELLO VILLEDA MD 02/28/19 Ondansetron (Ondansetron Odt) 4 Mg Tab.rapdis, 4 MG PO Q6H PRN for NAUSEA AND/OR VOMITING for 5 Days, #30 TAB Prov:BELLO VILLEDA MD 02/28/19 Baclofen* (Baclofen*) 10 Mg Tablet, 10 MG PO TID, #10 TAB Prov:CARLOS JONES MD 02/18/19 Reported Medications Carbamazepine* (Carbamazepine*) 100 Mg Tab.chew, 100 MG PO TID, #90 TAB.CHEW 02/21/19 Allergies Allergies: Coded Allergies: NSAIDS (Non-Steroidal Anti-Inflamma (Verified Allergy, Unknown, 02/21/19) morphine (Verified Allergy, Unknown, 03/12/19) PMhx/Soc History of Surgery: Yes (hysterectomy) Anesthesia Reaction: No Hx Neurological Disorder: Yes (seizures) Hx Respiratory Disorders: No Hx Cardiac Disorders: No Hx Psychiatric Problems: No Hx Miscellaneous Medical Probl: No Hx Alcohol Use: No Hx Substance Use: No Hx Tobacco Use: No Smoking Status: Never smoker FmHx Family History: No diabetes, No coronary disease Physical Exam Vitals Vital Signs Date Temp Pulse Resp B/P (MAP) Pulse Ox O2 O2 Flow FiO2 Time Delivery Rate 03/12/19 99.4 84 18 143/64 97 19:09 (90) Physical Exam Const: No acute distress, afebrile, patient anxious and agitated, patient lying prone upon my arrival to room Head: Atraumatic Eyes: Normal Conjunctiva ENT: Normal External Ears, Nose and Mouth. Neck: Full range of motion. No meningismus. Resp: Unable to evaluate, patient refused Cardio: Unable to evaluate patient reviewed Abd: Unable to evaluate, patient refused Skin: No petechiae or rashes Back: No midline or flank tenderness; positive musculoskeletal tenderness to right and left of lumbar midline, no deformity or hematomas palpated. Tenderness to palpation to sacrum and coccyx, patient grabbed my hand during examination when attempting palpation, no deformities noted Ext: No cyanosis, or edema Neur: Awake and alert x3, speaking in clear sentences, no focal deficits or facial asymmetry, patient with steady gait when leaving room Psych: Anxious and agitated Procedures/MDM ED COURSE: ED course includes a thorough examination and history. The patient was stable throughout ED course. I kept the patient and/or family informed of laboratory and diagnostic imaging results throughout the ED course. LABS: Urinalysis; in the event that hematuria is present, will proceed forward with further imaging to rule out any type of bladder complication with fall. Unable to do abdominal exam due to patient refusing. MEDICATIONS GIVEN IN ER: None DIAGNOSTIC IMAGING: Sacrum and coccyx x-ray ordered PROCEDURES: None. MEDICAL DECISION MAKING: Although I do not believe that lumbar x-rays were clinically indicated due to no midline tenderness, patient wants it documented in her chart but that she did request full back x-rays. Low suspicion for life-threatening medical emergency. Patient hemodynamically stable with no signs of shock. Unable to finish full evaluation due to patient eloping. Informed by nursing that patient became agitated when asked to go back to waiting room after collection of urine sample. DISPOSITION: Eloped DISCLAIMER: Inadvertent spelling and grammatical errors are likely due to EHR/dictation software use and do not reflect on the overall quality of patient care. Also, please note that the electronic time recorded on this note does not necessarily reflect the actual time of the patient encounter. Departure Diagnosis: Primary Impression: Injury of back Condition: MAYO Torres NP Mar 12, 2019 21:35
== END 2019-03-12 20:30 | disposition left against medical advice (07) ==
LOC: FTE 19:05
DX: S39.92XA Unspecified injury of lower back, initial encounter (principal); V48.4XXA Person boarding or alighting a car injured in noncollision transport accident, initial encounter